=== PATIENT | female | born 1950 | race Hispanic/Latino ===

== ENCOUNTER 2017-03-22 20:57 | Emergency (ER) | payer BC, MEDICARE ==
[2017-03-22 21:05] VITALS: BMI 18.8
[2017-03-22 21:17] VITALS: RESP 18
[2017-03-22] MEDS ORDERED: Sodium Chloride 0.9% 1,000 ML IV STA (21:26)
--- NOTE | 2017-03-22 21:51 | ED PDOC ---
Arrival/HPI - General Chief Complaint: Altered Mental Status Time Seen by Provider: 03/22/17 21:08 Historian: Patient, Spouse - History of Present Illness Narrative History of Present Illness (Text): 03/22/17 21:26 A 66 year old female, whose past medical history includes multiple myeloma, brought into the emergency department by EMS accompanied by for witnessed seizure. reports he woke up approximately at 20:00 and found patient unresponsive with her arms clenched tightly. He reports the seizure could have occurred in the span of 1 hour. Patient has a history of one prior seizure 1 year ago. also notes non-bilious non-bloody vomiting and a loss of appetite fo r 4 days, which began after chemotherapy. Patient denies any trauma, tongue biting, urinary incontinence, abdominal pain, chest pain, shortness of breath or any other complaints. PMD: Dr. Otf Littlejohn Toe Trimmer: Dr. Kinsey Time/Duration: Prior to Arrival Context: Home Past Medical History - Provider Review Nursing Documentation Reviewed: Yes - Cardiac Hx Cardiac Disorders: No - Pulmonary Hx Respiratory Disorders: Yes Hx Sleep Apnea: Yes - Neurological Hx Neurological Disorder: Yes Hx Dizziness: Yes Hx Seizures: Yes - HEENT Hx HEENT Disorder: No - Renal Hx Renal Disorder: No - Endocrine/Metabolic Hx Endocrine Disorders: No - Hematological/Oncological Hx Blood Disorders: Yes Hx Cancer: Yes (Multiple myeloma) - Integumentary Hx Dermatological Disorder: No - Musculoskeletal/Rheumatological Hx Musculoskeletal Disorders: Yes Hx Falls: Yes - Gastrointestinal Hx Gastrointestinal Disorders: Yes Hx Gastroesophageal Reflux: Yes - Genitourinary/Gynecological Hx Genitourinary Disorders: No - Psychiatric Hx Psychophysiologic Disorder: Yes Hx Anxiety: Yes Hx Substance Use: No - Anesthesia Hx Anesthesia: No Family/Social History - Physician Review Nursing Documentation Reviewed: Yes Family/Social History: No Known Family HX Smoking Status: Never Smoked Hx Alcohol Use: Yes Hx Substance Use: No Allergies/Home Meds Allergies/Adverse Reactions: Allergies No Known Allergies Allergy (Verified 01/15/16 23:13) Home Medications: Home Meds Medication Instructions Recorded Confirmed Unobtainable 03/22/17 03/22/17 Review of Systems - Physician Review All systems were reviewed & negative as marked: Yes - Review of Systems ENT: Other (tongue biting) Respiratory: absent: SOB Cardiovascular: absent: Chest Pain Gastrointestinal: absent: Abdominal Pain Genitourinary Female: absent: Other (Urinary incontinence) Neurological: Seizure Physical Exam Vital Signs Reviewed: Yes Vital Signs Pulse Resp BP Pulse Ox 03/22/17 21:16 119 H 18 153/96 H 95 Blood Pressure: Hypertensive Pulse: Tachycardic Respiratory Rate: Normal Appearance: Positive for: Well-Appearing, Non-Toxic, Comfortable Pain Distress: None Mental Status: Positive for: Alert and Oriented X 3 Finger Stick Blood Glucose: 129 - Systems Exam Head: Present: Atraumatic, Normocephalic Pupils: Present: PERRL Extroacular Muscles: Present: EOMI Conjunctiva: Present: Normal Mouth: Present: Moist Mucous Membranes, Other (bite to lower lip, no acitve bleeding) Neck: Present: Normal Range of Motion Respiratory/Chest: Present: Clear to Auscultation, Good Air Exchange. No: Respiratory Distress, Accessory Muscle Use Cardiovascular: Present: Regular Rate and Rhythm, Normal S1, S2. No: Murmurs Abdomen: Present: Normal Bowel Sounds. No: Tenderness, Distention, Peritoneal Signs Back: Present: Normal Inspection Upper Extremity: Present: Normal Inspection. No: Cyanosis, Edema Lower Extremity: Present: Normal Inspection. No: Edema Neurological: Present: GCS=15, CN II-XII Intact, Speech Normal, Motor Func Grossly Intact, Normal Sensory Function, Normal Cerebellar Funct, Gait Normal Skin: Present: Warm, Dry, Normal Color. No: Rashes Psychiatric: Present: Alert, Oriented x 3, Normal Insight, Normal Concentration Medical Decision Making ED Course and Treatment: 03/22/17 21:26 Impression: A 66 year old female brought in after seizure Differential Diagnosis included but are not limited to: Seizure secondary to Electrolyte abnormality vs. Intracranial pathology Plan: -- Head CT -- EKG -- Labs -- Urinalysis -- IV fluids -- Reassess and disposition Progress Notes: EKG shows sinus tachycardia at [address]-segment elevations, no change from prior on 12/2015. Interpreted by me. 03/22/17 23:[address] Alexis to f/u CT Head, UA, Temperature, reevaluate and disposition. - Lab Interpretations Lab Results: 03/22/17 21:40 03/22/17 21:40 Lab Results 03/22/17 21:40: Sodium 138, Potassium 4.2, Chloride 105, Carbon Dioxide 20 L, Anion Gap 17, BUN 14, Creatinine 1.2, Est GFR ( Amer) 54, Est GFR (Non- Af Amer) 45, Random Glucose 160 H, Calcium 10.4, Total Bilirubin 0.7, AST 22, ALT 16, Alkaline Phosphatase 89, Total Creatine Kinase 75, Total Protein 8.8 H, Albumin 4.6, Globulin 4.2, Albumin/Globulin Ratio 1.1, Lipase 113 03/22/17 21:40: WBC 9.0, RBC 4.09, Hgb 13.0, Hct 39.9, MCV 97.6, MCH 31.8, MCHC 32.6, RDW 14.0, Plt Count 241, MPV 10.1, Gran % 79.1 H, Lymph % (Auto) 13.9 L, Guthrie % (Auto) 6.9 H, Eos % (Auto) 0.1 L, Baso % (Auto) 0.0, Gran # 7.08 H, Lymph # 1.2, Guthrie # 0.6, Eos # 0.0, Baso # 0.00 03/22/17 21:05: POC Glucose (mg/dL) 129 H I have reviewed the lab results: Yes - RAD Interpretation Radiology Orders: 03/22/17 21:25 HEAD W/O CONTRAST [CT] Stat - Medication Orders Current Medication Orders: Discontinued Medications Sodium Chloride (Sodium Chloride 0.9%) 1,000 mls @ 999 mls/hr IV .Q1H1M STA Stop: 03/22/17 22:26 Last Admin: 03/22/17 21:44 Dose: 999 mls/hr eMAR Start Stop Document 03/22/17 21:44 AD (Rec: 03/22/17 21:45 AD [id number]) Intravenous Solution Start Date 03/22/17 Start Time 21:45 - Scribe Statement The provider has reviewed the documentation as recorded by the Tongibnaomi Aleman Provider Scribe Attestation: All medical record entries made by the Scribe were at my direction and personally dictated by me. I have reviewed the chart and agree that the record accurately reflects my personal performance of the history, physical exam, medical decision making, and the department course for this patient. I have also personally directed, reviewed, and agree with the discharge instructions and disposition. Disposition/Present on Arrival - Present on Arrival Any Indicators Present on Arrival: No History of DVT/PE: No History of Uncontrolled Diabetes: No Urinary Catheter: No History of Decub. Ulcer: No History Surgical Site Infection Following: None - Disposition Have Diagnosis and Disposition been Completed?: No Diagnosis: Seizure, Vomiting Disposition Time: 23:08 Condition: FAIR Forms: [facility] (Kiswahili)
[2017-03-22 22:05] LABS: EOS % 0.1 % (1.5-5.0); GRAN # 7.08 (1.4-6.5); GRAN % 79.1 % (50.0-68.0); LYMPH # 1.2 (1.2-3.4); LYMPH % 13.9 % (22.0-35.0); MEAN CELL VOLUME 97.6 fl (80.0-105.0); MEAN CORPUSCULAR HEMOGLOBIN 31.8 pg (25.0-35.0); MEAN CORPUSCULAR HGB CONC 32.6 g/dl (31.0-37.0); MEAN PLATELET VOLUME 10.1 fl (7.0-11.0); MONO # 0.6 (0.1-0.6); MONO % 6.9 % (1.0-6.0); RBC 4.09 10^6/uL (3.5-6.1)
[2017-03-22 22:13] LABS: ALBUMIN 4.6 g/dL (3.0-4.8); CALCIUM 10.4 mg/dL (8.4-10.5)
[2017-03-22 22:17] LABS: ALB/GLOB RATIO 1.1 (1.1-1.8)
[2017-03-22 23:27] VITALS: TEMP 98.1
--- NOTE | 2017-03-23 00:04 | CT ---
EXAM: CT Head Without Intravenous Contrast EXAM DATE/TIME: 03/22/2017 9:25 PM CLINICAL HISTORY: The patient age is 66 years old and is female; Signs and symptoms; Other: Seizure; Additional info: Seizure; Last was a year ago Facility exam id and description: Ct heads head w/o contrast TECHNIQUE: Axial computed tomography images of the head/brain without intravenous contrast. All CT scans at this facility use one or more dose reduction techniques, viz.: automated exposure control; ma/kV adjustment per patient size (including targeted exams where dose is matched to indication; i.e. head); or iterative reconstruction technique. Coronal and sagittal reformatted images were created and reviewed. COMPARISON: No relevant prior studies available. FINDINGS: Brain: There are periventricular foci of hypodensity, likely representing small vessel ischemic disease in a patient this age. The acuity of the white matter disease is indeterminate. The white-ayoub differentiation is preserved demonstrating no acute territorial type infarct. There is mild to moderate prominence of the ventricles and sulci, compatible with atrophy. No acute intracranial hemorrhage is seen. Midline shift: There is no midline shift. Ventricles: See above. Bones/joints: The calvarium demonstrates no evidence for a depressed fracture. Soft tissues: No acute abnormality. Vasculature: There is atherosclerotic calcification of the cavernous internal carotid arteries and distal vertebral arteries. Sinuses: There is near complete opacification of the left maxillary sinus. Mastoid air cells: No mastoid effusion. IMPRESSION: 1. No acute intracranial hemorrhage or acute territorial type infarct. 2. There are periventricular foci of hypodensity, likely representing small vessel ischemic disease in a patient this age. 3. Mild to moderate atrophy. 4. Paranasal sinus disease is noted above.
--- NOTE | 2017-03-23 00:39 | ED PDOC ---
Physical Exam - Physical Exam Narrative Physical Exam (Text): 03/23/17 00:38 66 year old female, endorsed to me by Dr. Gu, presented to the Emergency department s/p epileptic episode. Pending head CT. Upon re-evaluation, patient appears to be stable and denies any new complaints. Vital Signs Reviewed: Yes Vital Signs Temp Pulse Resp BP Pulse Ox 03/22/17 21:16 98.1 F 119 H 18 153/96 H 95 Temperature: Afebrile Blood Pressure: Hypertensive Pulse: Tachycardic Respiratory Rate: Normal Appearance: Positive for: Well-Appearing, Non-Toxic, Comfortable Pain Distress: None Mental Status: Positive for: Alert and Oriented X 3 Finger Stick Blood Glucose: 129 - Systems Exam Head: Present: Atraumatic, Normocephalic Pupils: Present: PERRL Extroacular Muscles: Present: EOMI Conjunctiva: Present: Normal Mouth: Present: Moist Mucous Membranes Neck: Present: Normal Range of Motion Respiratory/Chest: Present: Clear to Auscultation, Good Air Exchange. No: Respiratory Distress, Accessory Muscle Use Cardiovascular: Present: Regular Rate and Rhythm, Normal S1, S2. No: Murmurs Abdomen: Present: Normal Bowel Sounds. No: Tenderness, Distention, Peritoneal Signs Back: Present: Normal Inspection Upper Extremity: Present: Normal Inspection. No: Cyanosis, Edema Lower Extremity: Present: Normal Inspection. No: Edema Neurological: Present: GCS=15, CN II-XII Intact, Speech Normal Skin: Present: Warm, Dry, Normal Color. No: Rashes Psychiatric: Present: Alert, Oriented x 3, Normal Insight, Normal Concentration Medical Decision Making ED Course and Treatment: 03/23/17 00:40 Impression: 66 year old female presents to the Emergency department s/p seizure today. Plan: -- CT of Head -- Reassess and disposition Progress Notes: 03/23/17 00:40 CT of head reviewed by radiologist, shows: 1. No acute intracranial hemorrhage or acute territorial type infarct. 2. There are periventricular foci of hypodensity, likely representing small vessel ischemic disease in a patient this age. 3. Mild to moderate atrophy. 4. Paranasal sinus disease is noted above CT head overall negative. Discussed case with Dr. Littlejohn, who is aware and agrees with plan to have the patient follow-up with him. 03/23/17 00:45 Upon re-evaluation, patient appears stable and is in no acute distress. Patient denies any new complaints. Patient is agreeable with plan to follow-up with her PMD: Dr. Littlejohn. - Lab Interpretations Lab Results: 03/22/17 21:40 03/22/17 21:40 Lab Results 03/22/17 21:40: Sodium 138, Potassium 4.2, Chloride 105, Carbon Dioxide 20 L, Anion Gap 17, BUN 14, Creatinine 1.2, Est GFR ( Amer) 54, Est GFR (Non- Af Amer) 45, Random Glucose 160 H, Calcium 10.4, Total Bilirubin 0.7, AST 22, ALT 16, Alkaline Phosphatase 89, Total Creatine Kinase 75, Total Protein 8.8 H, Albumin 4.6, Globulin 4.2, Albumin/Globulin Ratio 1.1, Lipase 113 03/22/17 21:40: WBC 9.0, RBC 4.09, Hgb 13.0, Hct 39.9, MCV 97.6, MCH 31.8, MCHC 32.6, RDW 14.0, Plt Count 241, MPV 10.1, Gran % 79.1 H, Lymph % (Auto) 13.9 L, Daggett % (Auto) 6.9 H, Eos % (Auto) 0.1 L, Baso % (Auto) 0.0, Gran # 7.08 H, Lymph # 1.2, Daggett # 0.6, Eos # 0.0, Baso # 0.00 03/22/17 21:05: POC Glucose (mg/dL) 129 H - RAD Interpretation Radiology Orders: 03/22/17 21:25 HEAD W/O CONTRAST [CT] Stat - Medication Orders Current Medication Orders: Discontinued Medications Sodium Chloride (Sodium Chloride 0.9%) 1,000 mls @ 999 mls/hr IV .Q1H1M STA Stop: 03/22/17 22:26 Last Admin: 03/22/17 21:44 Dose: 999 mls/hr eMAR Start Stop Document 03/22/17 21:44 AD (Rec: 03/22/17 21:45 AD [id number]) Intravenous Solution Start Date 03/22/17 Start Time 21:45 - Scribe Statement The provider has reviewed the documentation as recorded by the Scribnaomi Mane. All medical record entries made by the Scribe were at my direction and personally dictated by me. I have reviewed the chart and agree that the record accurately reflects my personal performance of the history, physical exam, medical decision making, and the department course for this patient. I have also personally directed, reviewed, and agree with the discharge instructions and disposition. Disposition/Present on Arrival - Present on Arrival Any Indicators Present on Arrival: No History of DVT/PE: No History of Uncontrolled Diabetes: No Urinary Catheter: No History of Decub. Ulcer: No History Surgical Site Infection Following: None - Disposition Have Diagnosis and Disposition been Completed?: Yes Diagnosis: Seizure, Vomiting Disposition: HOME/ ROUTINE Disposition Time: 00:30 Condition: STABLE Discharge Instructions (ExitCare): Epilepsy (ED) Additional Instructions: Thank you for letting us take care of you today. The emergency medical care you received today was directed at your acute symptoms. If you were prescribed any medication, please fill it and take as directed. It may take several days for your symptoms to resolve. Return to the Emergency Department if your symptoms worsen, do not improve, or if you have any other problems. Please contact your doctor or call one of the physicians/clinics you have been referred to that are listed on the Patient Visit Information form that is included in your discharge packet. Bring any paperwork you were given at discharge with you along with any medications you are taking to your follow up visit. Our treatment cannot replace ongoing medical care by a primary care provider (PCP) outside of the emergency department. Thank you for allowing the [facility] team to be part of your care today. Follow up with Dr. Littlejohn in the morning for re-evaluation and further management. Referrals: Otf Littlejohn MD [Staff Provider] - Follow up with primary Forms: [facility] ([place]ivehi)
[2017-03-23 01:37] VITALS: BP 149/89; PULSE 99; O2SAT 100
--- NOTE | 2017-03-24 16:13 | CARD ---
APPROVED REPORT EKG Measurement Heart [id number] <Conclusion> Sinus tachycardia Possible Anterior infarct, age undetermined Abnormal ECG
== END 2017-03-23 01:15 | disposition home or self-care (01) ==
LOC: ED 20:57
DX: R56.9 Unspecified convulsions (principal); R11.10 Vomiting, unspecified; Z85.79 Personal history of other malignant neoplasms of lymphoid, hematopoietic and related tissues
CPT/HCPCS: 70450; 80053; 82550; 82948; 83690; 85025; 93005; 99285; J7040

== ENCOUNTER 2017-05-11 00:50 | Emergency (ER) | payer MEDICARE, BC ==
[2017-05-11 00:50] VITALS: BMI 18.8
[2017-05-11 01:22] LABS: BASO # 0.01 K/mm3 (0.0-2.0); BASO % 0.1 % (0.0-3.0); EOS # 0.1 (0.0-0.7); EOS % 0.6 % (1.5-5.0); GRAN # 7.23 (1.4-6.5); GRAN % 71.1 % (50.0-68.0); HEMOGLOBIN 12.2 g/dL (12.0-16.0); LYMPH % 19.3 % (22.0-35.0); MEAN CELL VOLUME 98.4 fl (80.0-105.0); MEAN CORPUSCULAR HEMOGLOBIN 32.6 pg (25.0-35.0); MEAN CORPUSCULAR HGB CONC 33.2 g/dl (31.0-37.0); MEAN PLATELET VOLUME 10.3 fl (7.0-11.0); MONO # 0.9 (0.1-0.6); MONO % 8.9 % (1.0-6.0); RBC 3.74 10^6/uL (3.5-6.1); RED CELL DISTRIBUTION WIDTH 13.8 % (11.5-14.5); WHITE BLOOD COUNT 10.2 10^3/ul (4.5-11.0)
[2017-05-11 01:32] LABS: ALB/GLOB RATIO 1.1 (1.1-1.8); ALBUMIN 4.4 g/dL (3.0-4.8); ALT/SGPT 8 U/L (7-56); BLOOD UREA NITROGEN 13 mg/dL (7-21); CALCIUM 9.5 mg/dL (8.4-10.5); GFR AFRICAN-AMERICAN 54; GFR NON-AFRICAN AMERICAN 45
[2017-05-11 01:43] LABS: TROPONIN I < 0.01 ng/mL
[2017-05-11] MEDS ORDERED: Sodium Chloride 0.9% 1,000 ML IV STA (01:47)
[2017-05-11 01:50] LABS: AST/SGOT 30 U/L (14-36)
[2017-05-11 02:06] LABS: INR 1.03 (0.93-1.08); PARTIAL THROMBOPLASTIN TIME 24.9 Seconds (25.1-36.5); PROTHROMBIN TIME 11.7 SECONDS (9.4-12.5)
--- NOTE | 2017-05-11 02:08 | ED PDOC ---
Arrival/HPI - General Chief Complaint: Seizure Time Seen by Provider: 05/11/17 01:16 Historian: Patient, Spouse - History of Present Illness Narrative History of Present Illness (Text): 05/11/17 02:04 A 66 year old female, whose past medical history includes multiple myeloma, presents to the emergency department s/p a seizure episode this evening. The patient states that she is currently not on any seizure medication nor has she followed up with a neurologist. The patient states that the seizure lasted about 5 minutes. The patient notes that he bottom lip is swollen, stating that she may have bitten her lip. The also noted that patient has been vomiting experiencing nausea and food intolerance after chemotherapy treatments. The patient denies fevers, chills, headache, dizziness, chest pain, shortness of breath, dyspnea on exertion, cough, abdominal pain, diarrhea, back pain, neck pain, urinary/bowel changes/ intolerance, or any other complaint. PMD: Dr. Littlejohn Oncologist: Dr. Kinsey Time/Duration: Other (This evening) Symptom Onset: Sudden Symptom Course: Resolved Activities at Onset: Rest, Light Context: Home Past Medical History - Provider Review Nursing Documentation Reviewed: Yes - Infectious Disease Hx of Infectious Diseases: None - Cardiac Hx Cardiac Disorders: No - Pulmonary Hx Respiratory Disorders: Yes Hx Sleep Apnea: Yes - Neurological Hx Neurological Disorder: Yes Hx Dizziness: Yes Hx Seizures: Yes - HEENT Hx HEENT Disorder: No - Renal Hx Renal Disorder: No - Endocrine/Metabolic Hx Endocrine Disorders: No - Hematological/Oncological Hx Blood Disorders: Yes Hx Cancer: Yes (Multiple myeloma) - Integumentary Hx Dermatological Disorder: No - Musculoskeletal/Rheumatological Hx Musculoskeletal Disorders: Yes Hx Falls: Yes - Gastrointestinal Hx Gastrointestinal Disorders: Yes Hx Gastroesophageal Reflux: Yes - Genitourinary/Gynecological Hx Genitourinary Disorders: No - Psychiatric Hx Psychophysiologic Disorder: Yes Hx Anxiety: Yes Hx Substance Use: No - Anesthesia Hx Anesthesia: No Family/Social History - Physician Review Nursing Documentation Reviewed: Yes Family/Social History: No Known Family HX Smoking Status: Never Smoked Hx Alcohol Use: Yes Hx Substance Use: No Allergies/Home Meds Allergies/Adverse Reactions: Allergies No Known Allergies Allergy (Verified 01/15/16 23:13) Review of Systems - Physician Review All systems were reviewed & negative as marked: Yes - Review of Systems Constitutional: absent: Fevers, Night Sweats Respiratory: absent: SOB, Cough Cardiovascular: absent: Chest Pain, MUNIZ Gastrointestinal: absent: Abdominal Pain, Stool Changes Genitourinary Female: absent: Urine Output Changes Musculoskeletal: absent: Back Pain, Neck Pain Neurological: absent: Headache, Dizziness Physical Exam Vital Signs Reviewed: Yes Vital Signs Pulse Resp BP Pulse Ox 05/11/17 05:45 82 18 127/77 100 05/11/17 04:00 73 18 125/84 100 05/11/17 02:28 85 16 128/86 95 05/11/17 01:06 120 H 18 153/109 H 97 Blood Pressure: Hypertensive Pulse: Tachycardic Respiratory Rate: Normal Appearance: Positive for: Well-Appearing, Non-Toxic, Comfortable Pain Distress: None Mental Status: Positive for: Alert and Oriented X 3 - Systems Exam Head: Present: Atraumatic, Normocephalic Pupils: Present: PERRL Extroacular Muscles: Present: EOMI Conjunctiva: Present: Normal Mouth: Present: Moist Mucous Membranes. No: Normal Lips (Lip Biting s/p seizure.) Neck: Present: Normal Range of Motion Respiratory/Chest: Present: Clear to Auscultation, Good Air Exchange. No: Respiratory Distress, Accessory Muscle Use Cardiovascular: Present: Regular Rate and Rhythm, Normal S1, S2. No: Murmurs Abdomen: Present: Normal Bowel Sounds. No: Tenderness, Distention, Peritoneal Signs Back: Present: Normal Inspection Upper Extremity: Present: Normal Inspection. No: Cyanosis, Edema Lower Extremity: Present: Normal Inspection. No: Edema Neurological: Present: GCS=15, CN II-XII Intact, Speech Normal Skin: Present: Warm, Dry, Normal Color. No: Rashes Psychiatric: Present: Alert, Oriented x 3, Normal Insight, Normal Concentration Medical Decision Making ED Course and Treatment: 05/11/17 02:09 Impression: A 66 year old female presents to the emergency department s/p a seizure episode this evening. Plan: -- Urinalysis -- Urine Culture -- Ativan, Zofran, and IV Fluids -- Reassess and disposition Prior Visits: Notes and results from previous visits were reviewed. Patient was last seen in the emergency department on 03/22/2017. The patient was seen and treated s/p a seizure episode. Patient was discharged home. Progress Notes: CT Head Without Intravenous Contrast Dictated and Authenticated by: Julio Alcala MD 05/11/2017 5:25 AM Eastern Time ([place] & [place]) IMPRESSION: 1. Nonspecific white matter changes. Acute infarction may be CT occult within first 24 hours. If a focal deficit persists, consider followup CT or MRI for further evaluation. 2. Sinus disease. 3. Incidental/non-acute findings are described above. - Lab Interpretations Lab Results: 05/11/17 01:00 05/11/17 01:00 Lab Results 05/11/17 01:45: PT 11.7, INR 1.03, APTT 24.9 L 05/11/17 01:00: Sodium 137, Potassium 3.6, Chloride 99, Carbon Dioxide 16 L, Anion Gap 26 H, BUN 13, Creatinine 1.2, Est GFR ( Amer) 54, Est GFR (Non- Af Amer) 45, Random Glucose 146 H, Calcium 9.5, Total Bilirubin 0.7, AST 30, ALT 8, Alkaline Phosphatase 60, Lactate Dehydrogenase 680, Total Creatine Kinase 111, Troponin I < 0.01, Total Protein 8.2, Albumin 4.4, Globulin 3.8, Albumin/Globulin Ratio 1.1 05/11/17 01:00: WBC 10.2, RBC 3.74, Hgb 12.2, Hct 36.8, MCV 98.4, MCH 32.6, MCHC 33.2, RDW 13.8, Plt Count 216, MPV 10.3, Gran % 71.1 H, Lymph % (Auto) 19.3 L, [place]linger % (Auto) 8.9 H, Eos % (Auto) 0.6 L, Baso % (Auto) 0.1, Gran # 7.23 H, Lymph # (Auto) 2.0, Bollinger # (Auto) 0.9 H, Eos # (Auto) 0.1, Baso # (Auto) 0.01 I have reviewed the lab results: Yes - RAD Interpretation Radiology Orders: 05/11/17 03:16 HEAD W/O CONTRAST [CT] Stat - Medication Orders Current Medication Orders: Discontinued Medications Sodium Chloride (Sodium Chloride 0.9%) 1,000 mls @ 999 mls/hr IV .Q1H1M STA Stop: 05/11/17 02:47 Last Admin: 05/11/17 01:55 Dose: 999 mls/hr eMAR Start Stop Document 05/11/17 01:55 JOL (Rec: 05/11/17 02:28 JOL [id number]) Intravenous Solution Start Date 05/11/17 Start Time 01:55 End Date 05/11/17 End time 02:55 Total Infusion Time 60 Lorazepam (Ativan) 1 mg IVP ONCE ONE PRN Reason: Protocol Stop: 05/11/17 01:48 Last Admin: 05/11/17 02:27 Dose: 1 mg IVP Administration Document 05/11/17 02:27 JOL (Rec: 05/11/17 02:27 JOL [id number]) Charges for Administration # of IVP Administrations 1 Ondansetron HCl (Zofran Inj) 8 mg IVP STAT STA Stop: 05/11/17 01:48 Last Admin: 05/11/17 02:28 Dose: 8 mg IVP Administration Document 05/11/17 02:28 JOL (Rec: 05/11/17 02:28 JOL [id number]) Charges for Administration # of IVP Administrations 1 - PA / POWERHOUSE MECHANIC APPRENTICE / Resident Statement MD/DO has reviewed & agrees with the documentation as recorded. - Scribe Statement The provider has reviewed the documentation as recorded by the Tongibe Kiki Villanueva Provider Scribe Attestation: All medical record entries made by the Scribe were at my direction and personally dictated by me. I have reviewed the chart and agree that the record accurately reflects my personal performance of the history, physical exam, medical decision making, and the department course for this patient. I have also personally directed, reviewed, and agree with the discharge instructions and disposition. Disposition/Present on Arrival - Present on Arrival Any Indicators Present on Arrival: No History of DVT/PE: No History of Uncontrolled Diabetes: No Urinary Catheter: No History of Decub. Ulcer: No History Surgical Site Infection Following: None - Disposition Have Diagnosis and Disposition been Completed?: Yes Diagnosis: Recurrent seizures, Dehydration, Multiple myeloma Disposition: HOME/ ROUTINE Disposition Time: 05:43 Patient Plan: Discharge Condition: GOOD Discharge Instructions (ExitCare): Dehydration, Adult (DC) Additional Instructions: Mrs Mahan- Use the Zofran ODT for the Nausea/Vomiting - it dissolves on the tongue. Bradly- Dr. Leander Almanzar Prescriptions: Ondansetron ODT [Zofran ODT] 8 mg PO TID #30 odt Referrals: Otf Littlejohn MD [Primary Care Provider] - Follow up with primary Forms: [facility] (Occ[place])
--- NOTE | 2017-05-11 05:25 | CT ---
EXAM: CT Head Without Intravenous Contrast CLINICAL HISTORY: 66 years old, female; Signs and symptoms; Syncope and collapse; Additional info: Seizure TECHNIQUE: Axial computed tomography images of the head/brain without intravenous contrast. All CT scans at this facility use one or more dose reduction techniques, viz.: automated exposure control; ma/kV adjustment per patient size (including targeted exams where dose is matched to indication; i.e. head); or iterative reconstruction technique. Coronal and sagittal reformatted images were created and reviewed. COMPARISON: CT - HEAD W/O CONTRAST 2017-03-22 23:13 FINDINGS: Brain: Mild atrophy. No intracranial hemorrhage. No mass. Few scattered foci of decreased attenuation within periventricular/subcortical white matter. No definite edema. Ventricles: No hydrocephalus. Bones/joints: No acute fracture. Stable appearance of calvarium. Soft tissues: Unremarkable. Vasculature: Mild atherosclerotic disease of intracranial arteries. Sinuses: Near complete opacification of LEFT maxillary sinus. Mastoid air cells: No mastoid effusion. Orbits: Unremarkable as visualized. IMPRESSION: 1. Nonspecific white matter changes. Acute infarction may be CT occult within first 24 hours. If a focal deficit persists, consider followup CT or MRI for further evaluation. 2. Sinus disease. 3. Incidental/non-acute findings are described above.
[2017-05-11 07:09] VITALS: BP 127/77; PULSE 82; RESP 18; O2SAT 100
== END 2017-05-11 05:50 | disposition home or self-care (01) ==
LOC: ED 00:50
DX: G40.909 Epilepsy, unspecified, not intractable, without status epilepticus (principal); E86.0 Dehydration; C90.00 Multiple myeloma not having achieved remission
CPT/HCPCS: 70450; 80053; 82550; 83615; 84484; 85025; 85610; 85730; 96361; 96374; 96375; 99285; J2060; J2405; J7040

== ENCOUNTER 2017-10-23 11:37 | Day surgery (SDC) | payer MEDICARE, BC ==
[2017-10-18 12:07] VITALS: BMI 24.0
[2017-10-23 12:44] LABS: BASO # 0.05 K/mm3 (0.0-2.0); BASO % 0.9 % (0.0-3.0); EOS # 0.2 (0.0-0.7); EOS % 3.6 % (1.5-5.0); GRAN # 3.39 (1.4-6.5); GRAN % 58.6 % (50.0-68.0); HEMOGLOBIN 10.9 g/dL (12.0-16.0); LYMPH # 1.5 (1.2-3.4); LYMPH % 25.2 % (22.0-35.0); MEAN CELL VOLUME 96.3 fl (80.0-105.0); MEAN CORPUSCULAR HEMOGLOBIN 31.3 pg (25.0-35.0); MEAN CORPUSCULAR HGB CONC 32.5 g/dl (31.0-37.0); MEAN PLATELET VOLUME 10.1 fl (7.0-11.0); MONO # 0.7 (0.1-0.6); MONO % 11.7 % (1.0-6.0); RBC 3.48 10^6/uL (3.5-6.1); RED CELL DISTRIBUTION WIDTH 13.2 % (11.5-14.5); WHITE BLOOD COUNT 5.8 10^3/ul (4.5-11.0)
[2017-10-23 13:18] LABS: INR 0.94; PARTIAL THROMBOPLASTIN TIME 22.6 Seconds (25.1-36.5); PROTHROMBIN TIME 10.8 SECONDS (9.4-12.5)
[2017-10-23 13:40] LABS: CALCIUM 8.8 mg/dL (8.4-10.5)
[2017-10-23] MEDS ORDERED: Midazolam 2 MG/2 ML VIAL ONE (14:42)
[2017-10-23] MEDS ORDERED: Oxycodone/Acetaminophen 5/325 mg Tab PO PRN (15:21)
[2017-10-23] MEDS ORDERED: Sodium Chloride 0.45% 1,000 ML IV SCH (15:30)
[2017-10-23 16:20] VITALS: PULSE 79; RESP 20; TEMP 98.6; O2SAT 98
[2017-10-23 17:41] VITALS: BP 137/70
--- NOTE | 2017-10-23 18:39 | VASCULAR ---
PROCEDURE: Ultrasound and fluoroscopic right internal jugular venous access port. CLINICAL HISTORY: Multiple myeloma.Venous port for chemotherapy. PHYSICIAN(S): Karan Duncan M.D. TECHNIQUE: The relative risks and indications of the procedure were explained to the patient and consent obtained. The patient was placed supine on the arteriogram table and the right neck and chest prepped and draped in the usual sterile fashion. Conscious sedation monitoring was provided throughout the procedure by a nurse. Antibiotics were given prior to the procedure. Under direct ultrasound guidance, the internal jug vein was punctured with a micro-puncture set. A 0.035 angled Glidewire was advanced into the IVC. A 4 cm incision was made below the right clavicle and the pocket blunted dissected. A 8 [place] single-lumen catheter, 17 cm long, was advanced to the SVC/RA junction. The catheter was trimmed and attached to the port. The port aspirates and injects easily. The port was placed in the pocket and closed in 2 layers. The patient tolerated the procedure well. IMPRESSION: Ultrasound and fluoroscopically placed right internal jugular venous access port.
== END 2017-10-23 17:10 | disposition home or self-care (01) ==
LOC: SDS 11:37
PROVIDERS: ATTEND Radiology Vascular & Interventional Radiology
DX: C90.00 Multiple myeloma not having achieved remission (principal); I10 Essential (primary) hypertension
CPT/HCPCS: 36415; 36561; 76937; 77001; 80048; 85025; 85610; 85730; 99152; 99153; C1769; C1788; J0690; J1644; J2250; J2405; J3010; J7030

== ENCOUNTER 2018-04-12 02:05 | Emergency (ER) | payer MEDICARE, BC ==
[2018-04-12 02:05] VITALS: BMI 24.0
[2018-04-12] MEDS ORDERED: Sodium Chloride 0.9% 500 ML IV STA (02:18)
--- NOTE | 2018-04-12 02:28 | ED PDOC ---
Arrival/HPI - General Chief Complaint: Altered Mental Status Time Seen by Provider: 04/12/18 02:06 Historian: Patient - History of Present Illness Narrative History of Present Illness (Text): 04/12/18 02:23 67 year old female, whose past medical history includes multiple myeloma, brought into the emergency department by EMS accompanied by for witnessed seizure. reports he woke up and found patient unresponsive with her arms clenched tightly. states patient has had a history of seizures since her diagnosis, stating they usually come on when "she is dehydrated." states patient did not receive her scheduled chemotherapy treatment today as she was not feeling well. Patient denies any fevers, chills, headache, dizziness, chest pain, shortness of breath, cough, abdominal pain, nausea, vomiting, diarrhea, back pain, neck pain, or any other complaint. upon emergency department arrival pt feels well denies complaints tates "she bit her lip" PMD: Dr. Otf Littlejohn Ingot Weigher: Dr. Kinsey 04/12/18 05:33 Time/Duration: Prior to Arrival Symptom Onset: Sudden Symptom Course: Unchanged Activities at Onset: Light Context: Home Past Medical History - Provider Review Nursing Documentation Reviewed: Yes - Infectious Disease Hx of Infectious Diseases: None - Cardiac Hx Pacemaker: No - Pulmonary Hx Respiratory Disorders: Yes Hx Sleep Apnea: Yes - Neurological Hx Paralysis: No - HEENT Hx HEENT Disorder: No - Renal Hx Renal Disorder: No - Endocrine/Metabolic Hx Endocrine Disorders: No - Hematological/Oncological Hx Blood Transfusions: Yes (2013) Hx Blood Transfusion Reaction: No - Integumentary Hx Dermatological Disorder: No - Musculoskeletal/Rheumatological Hx Musculoskeletal Disorders: No - Gastrointestinal Hx Gastrointestinal Disorders: Yes Hx Gastroesophageal Reflux: Yes - Genitourinary/Gynecological Hx Genitourinary Disorders: No - Psychiatric Hx Emotional Abuse: No Hx Physical Abuse: No Hx Substance Use: No - Anesthesia Hx Anesthesia Reactions: No Hx Malignant Hyperthermia: No - Suicidal Assessment Feels Threatened In Home Enviroment: No Family/Social History - Physician Review Nursing Documentation Reviewed: Yes Family/Social History: No Known Family HX Smoking Status: Never Smoked Hx Alcohol Use: No Hx Substance Use: No Allergies/Home Meds Allergies/Adverse Reactions: Allergies No Known Allergies Allergy (Verified 01/15/16 23:13) Home Medications: Home Meds Medication Instructions Recorded Confirmed ALPRAZolam [Xanax] 1 mg PO PRN PRN 10/18/17 10/23/17 Aspirin [Ecotrin] 81 mg PO DAILY 10/18/17 10/23/17 Ondansetron ODT [Zofran ODT] 8 mg PO TID PRN 10/18/17 10/23/17 Zolpidem [Ambien] 5 mg PO HS PRN 10/18/17 10/23/17 Review of Systems - Physician Review All systems were reviewed & negative as marked: Yes - Review of Systems Constitutional: absent: Fevers, Night Sweats Respiratory: absent: SOB, Cough Cardiovascular: absent: Chest Pain Gastrointestinal: absent: Abdominal Pain, Diarrhea, Nausea, Vomiting Musculoskeletal: absent: Back Pain, Neck Pain Neurological: Seizure. absent: Headache, Dizziness Physical Exam Vital Signs Reviewed: Yes Blood Pressure: Normal Pulse: Regular Respiratory Rate: Normal Appearance: Positive for: Well-Appearing, Non-Toxic, Comfortable Pain Distress: None Mental Status: Positive for: Alert and Oriented X 3 Finger Stick Blood Glucose: 215 - Systems Exam Head: Present: Atraumatic, Normocephalic Pupils: Present: PERRL Extroacular Muscles: Present: EOMI Conjunctiva: Present: Normal Mouth: Present: Moist Mucous Membranes, Other (lower lip mild swelling) Neck: Present: Normal Range of Motion Respiratory/Chest: Present: Clear to Auscultation, Good Air Exchange. No: Respiratory Distress, Accessory Muscle Use Cardiovascular: Present: Regular Rate and Rhythm, Normal S1, S2. No: Murmurs Abdomen: No: Tenderness, Distention, Peritoneal Signs Back: Present: Normal Inspection Upper Extremity: Present: Normal Inspection. No: Cyanosis, Edema Lower Extremity: Present: Normal Inspection. No: Edema Neurological: Present: GCS=15, CN II-XII Intact, Speech Normal Skin: Present: Warm, Dry, Normal Color. No: Rashes Psychiatric: Present: Alert, Oriented x 3, Normal Insight, Normal Concentration Medical Decision Making ED Course and Treatment: 04/12/18 02:30 Impression: 67 year old female presents status post seizure Plan: -- CT Head -- EKG -- Labs -- Zofran -- Urinalysis -- Reassess and disposition Prior Visits: Notes and results from previous visits were reviewed Progress Notes: 04/12/18 02:32 EKG Reviewed by me, shows: Sinus tachycardia@ 122 bpm 04/12/18 03:17 CT scan of the head CLINICAL HISTORY: Seizure. TECHNIQUE: Multiple axial CT images were obtained through the brain without IV contrast material. COMPARISON: 05/11/2017. COMMENTS: There is normal configuration of sella turcica. There are no intra or extra- axial collections. There is no mass effect or midline shift. There is no evidence of hematoma formation. No hydrocephalus is present. The ventricles are symmetrical. No abnormal calcifications are present. There is diffuse age-appropriate cerebellar and cerebral atrophy with proportionally dilated ventricles and cortical sulci. There are bilateral periventricular and subcortical white matter hypolucencies compatible with mild chronic microvascular disease. Otherwise, no significant focal abnormalities are seen either in the posterior fossa or supratentorial compartment. IMPRESSION: 1. Age-appropriate cerebellar and cerebral atrophy. 2. Mild chronic microvascular disease. 3. No evidence of acute intracranial pathology. 04/12/18 05:33 noted numerous visits for similar neg mri 06/13, in emergency room, awake alert at baseline. ct no mass effect neuro intact. pt repeatly asking for d/c. cxr neg. refuses to provide ua. advises will follow up outpt strict return precautiosn advised will need further outpt w/u including mri r/o mets - RAD Interpretation Radiology Orders: 04/12/18 02:18 HEAD W/O CONTRAST [CT] Stat 04/12/18 02:19 CXR [CHEST PORTABLE] [RAD] Stat - Medication Orders Current Medication Orders: Sodium Chloride (Sodium Chloride 0.9%) 500 mls @ 1,000 mls/hr IV .Q30M STA Stop: 04/12/18 02:47 - Scribe Statement The provider has reviewed the documentation as recorded by the Rad S[place] Provider Scribe Attestation: All medical record entries made by the Scribe were at my direction and personally dictated by me. I have reviewed the chart and agree that the record accurately reflects my personal performance of the history, physical exam, medical decision making, and the department course for this patient. I have also personally directed, reviewed, and agree with the discharge instructions and disposition. Disposition/Present on Arrival - Present on Arrival Any Indicators Present on Arrival: No History of DVT/PE: No History of Uncontrolled Diabetes: No Urinary Catheter: No History of Decub. Ulcer: No History Surgical Site Infection Following: None - Disposition Have Diagnosis and Disposition been Completed?: Yes Diagnosis: Seizure Disposition: HOME/ ROUTINE Disposition Time: 04:00 Patient Problems: Current Active Problems Problem Status Onset Seizure Acute Condition: STABLE Discharge Instructions (ExitCare): Seizures Additional Instructions: return to emergency room with worsening see your pmd and specialist. you may ne ed further testing as an outpatient. Referrals: Garrett Ramos MD [Staff Provider] - Follow up with primary Otf Littlejohn MD [Primary Care Provider] - Follow up with primary Forms: [employer] ([place])
[2018-04-12 02:35] LABS: BASO # 0.05 K/mm3 (0.0-2.0); BASO % 0.5 % (0.0-3.0); EOS # 0.2 (0.0-0.7); EOS % 1.6 % (1.5-5.0); HEMOGLOBIN 11.1 g/dL (12.0-16.0); LYMPH # 2.4 (1.2-3.4); LYMPH % 26.3 % (22.0-35.0); MEAN CELL VOLUME 96.9 fl (80.0-105.0); MEAN CORPUSCULAR HEMOGLOBIN 31.5 pg (25.0-35.0); MEAN CORPUSCULAR HGB CONC 32.6 g/dl (31.0-37.0); MEAN PLATELET VOLUME 9.3 fl (7.0-11.0); MONO # 0.6 (0.1-0.6); RBC 3.52 10^6/uL (3.5-6.1); RED CELL DISTRIBUTION WIDTH 13.8 % (11.5-14.5); WHITE BLOOD COUNT 9.1 10^3/uL (4.5-11.0)
[2018-04-12 02:39] LABS: INR 1.07; PARTIAL THROMBOPLASTIN TIME 28.9 Seconds (26.9-38.3); PROTHROMBIN TIME 11.9 SECONDS (9.4-12.5)
[2018-04-12 02:42] LABS: ALB/GLOB RATIO 0.8 (1.1-1.8); AST/SGOT 25 U/L (14-36); BLOOD UREA NITROGEN 7 mg/dL (7-21); CALCIUM 8.9 mg/dL (8.4-10.5); GFR NON-AFRICAN AMERICAN 49
[2018-04-12 03:48] LABS: ALT/SGPT < 6 U/L (7-56)
[2018-04-12 04:02] VITALS: BP 117/62; PULSE 99; RESP 18; TEMP 98.1; O2SAT 96
--- NOTE | 2018-04-12 07:00 | CT ---
Date of service: 04/12/2018 PROCEDURE: CT HEAD WITHOUT CONTRAST. HISTORY: seizure COMPARISON: Comparison is made with the previous study dated 05/11/2017 TECHNIQUE: Axial computed tomography images were obtained through the head/brain without intravenous contrast. Radiation dose: Total exam DLP = 898.34 mGy-cm. This CT exam was performed using one or more of the following dose reduction techniques: Automated exposure control, adjustment of the mA and/or kV according to patient size, and/or use of iterative reconstruction technique. FINDINGS: HEMORRHAGE: No intracranial hemorrhage. BRAIN: No mass effect or edema. Mild volume loss and mild chronic microvascular white matter ischemic disease are again noted. VENTRICLES: Unremarkable. No hydrocephalus. CALVARIUM: Unremarkable. PARANASAL SINUSES: Mild mucosal thickening noted in the visualized left maxillary sinus. MASTOID AIR CELLS: Unremarkable as visualized. No inflammatory changes. OTHER FINDINGS: None. IMPRESSION: No evidence of acute intracranial hemorrhage intracranial collection mass effect or midline shift. Mild atrophy and chronic microvascular white matter ischemic disease. Preliminary report was submitted by [facility] Radiology contains concordant findings.
--- NOTE | 2018-04-12 09:14 | CARD ---
APPROVED REPORT Date of service: 04/12/2018 EKG Measurement Heart [id number] <Conclusion> Sinus tachycardia Nonspecific ST and T wave abnormality Abnormal ECG
--- NOTE | 2018-04-12 12:26 | RAD ---
Date of service: 04/12/2018 PROCEDURE: CHEST RADIOGRAPH, 1 VIEW HISTORY: seizure COMPARISON: None available. FINDINGS: LUNGS: Foci of airspace opacities noted at the right lower lung may represent atelectasis or pneumonia. The possibility of aspiration is also not totally excluded. PLEURA: No pneumothorax or pleural fluid seen. CARDIOVASCULAR: No aortic atherosclerotic calcification present. Normal. OSSEOUS STRUCTURES: No significant abnormalities. VISUALIZED UPPER ABDOMEN: Normal. OTHER FINDINGS: Right-sided Infusaport is seen in place. IMPRESSION: Focal opacity at the right lower lung may represent atelectasis or aspiration or pneumonia.
== END 2018-04-12 03:59 | disposition home or self-care (01) ==
LOC: ED 02:05
DX: R56.9 Unspecified convulsions (principal)
CPT/HCPCS: 70450; 71045; 80053; 82948; 83735; 85025; 85610; 85730; 93005; 96374; 99285; J2405; J7040

== ENCOUNTER 2018-04-13 03:00 | Inpatient (IN) | payer MEDICARE, BC ==
[2018-04-13] MEDS ORDERED: Sodium Chloride 0.9% 1,000 ML IV STA (03:21)
--- NOTE | 2018-04-13 03:34 | ED PDOC ---
Arrival/HPI - General Chief Complaint: Seizure Time Seen by Provider: 04/13/18 03:01 Historian: Patient - History of Present Illness Narrative History of Present Illness (Text): 04/13/18 03:31 67 year old female, whose past medical history includes multiple myeloma, brought into the emergency department by EMS accompanied by for suspected seizure. Patient is currently on chemotherapy for her multiple- myeloma. Patient was seen yesterday in the ER after normal status and negative CT scan, but patient returns for similar episodes. Patient feels nauseous, but otherwise feels well. Patient denies any fever, chills, chest pain, shortness of breath, vomiting, diarrhea, urinary symptoms, back pain, neck pain, headache, dizziness, or any other complaints. PMD: Dr. Otf Littlejohn Art Editor: Dr. Kinsey 04/13/18 06:13 Symptom Onset: Sudden Symptom Course: Improving Context: Home Past Medical History - Provider Review Nursing Documentation Reviewed: Yes - Infectious Disease Hx of Infectious Diseases: None - Cardiac Hx Pacemaker: No - Pulmonary Hx Respiratory Disorders: Yes Hx Sleep Apnea: Yes - Neurological Hx Paralysis: No Hx Seizures: Yes - HEENT Hx HEENT Disorder: No - Renal Hx Renal Disorder: No - Endocrine/Metabolic Hx Endocrine Disorders: No - Hematological/Oncological Hx Blood Transfusions: Yes (2013) Hx Blood Transfusion Reaction: No - Integumentary Hx Dermatological Disorder: No - Musculoskeletal/Rheumatological Hx Musculoskeletal Disorders: No - Gastrointestinal Hx Gastrointestinal Disorders: Yes Hx Gastroesophageal Reflux: Yes - Genitourinary/Gynecological Hx Genitourinary Disorders: No - Psychiatric Hx Emotional Abuse: No Hx Physical Abuse: No Hx Substance Use: No - Anesthesia Hx Anesthesia Reactions: No Hx Malignant Hyperthermia: No - Suicidal Assessment Feels Threatened In Home Enviroment: No Family/Social History - Physician Review Nursing Documentation Reviewed: Yes Family/Social History: No Known Family HX Smoking Status: Never Smoked Hx Alcohol Use: No Hx Substance Use: No Allergies/Home Meds Allergies/Adverse Reactions: Allergies No Known Allergies Allergy (Verified 04/13/18 03:01) Review of Systems - Physician Review All systems were reviewed & negative as marked: Yes - Review of Systems Constitutional: absent: Fevers, Other (chills) Respiratory: absent: SOB Cardiovascular: absent: Chest Pain Gastrointestinal: absent: Diarrhea, Nausea, Vomiting Genitourinary Female: absent: Dysuria, Frequency, Hematuria Musculoskeletal: absent: Back Pain, Neck Pain Neurological: Seizure Physical Exam Vital Signs Temp Pulse Resp BP Pulse Ox 04/13/18 03:07 98.5 F 99 H 22 124/64 90 L Temperature: Afebrile Blood Pressure: Normal Pulse: Tachycardic Respiratory Rate: Normal Appearance: Positive for: Well-Appearing, Non-Toxic, Comfortable Pain Distress: None Mental Status: Positive for: Alert and Oriented X 3 - Systems Exam Head: Present: Atraumatic, Normocephalic Pupils: Present: PERRL Extroacular Muscles: Present: EOMI Conjunctiva: Present: Normal Mouth: Present: Moist Mucous Membranes Neck: Present: Normal Range of Motion Respiratory/Chest: Present: Clear to Auscultation, Good Air Exchange. No: Respiratory Distress, Accessory Muscle Use Cardiovascular: Present: Regular Rate and Rhythm, Normal S1, S2. No: Murmurs Abdomen: No: Tenderness, Distention, Peritoneal Signs Back: Present: Normal Inspection Upper Extremity: Present: Normal Inspection. No: Cyanosis, Edema Lower Extremity: Present: Normal Inspection. No: Edema Neurological: Present: GCS=15, Speech Normal Skin: Present: Warm, Dry, Normal Color. No: Rashes Psychiatric: Present: Alert, Oriented x 3, Normal Insight, Normal Concentration Medical Decision Making ED Course and Treatment: 04/13/18 03:35 Impression: 67 year old female presents complaining of suspected seizure today. Patient was seen and evaluated yesterdays for similar symptom. - Labs -- EKG -- Chest X-ray -- IV Fluids, Zofran Inj -- Urinalysis -- Reassess and disposition Prior Visits: Notes and results from previous visits were reviewed. Progress Notes: EKG shows sinus tachycardia at 114 [address] with no specific st/t wave changes with no change from pervious comparison. Interpreted by me. 04/13/18 03:[address] discussed [address] PMD Dr[address] Littlejohn who recommends to observe patient until the morning. 04/13/18 04:[address] Ramos who recommends Keppra and admission for EEG. Case discussed with PMD Dr. Littlejohn who requests for hospitalist admission. 04/13/18 04:35 Case discussed with medical coordinator pesticide use and Dr. Curiel who is aware and agrees with the plan. - Lab Interpretations I have reviewed the lab results: Yes - RAD Interpretation Biological Chemist: ED Physician - EKG Interpretation Interpreted by ED Physician: Yes Type: 12 lead EKG - Medication Orders Current Medication Orders: Sodium Chloride (Sodium Chloride 0.9%) 1,000 mls @ 999 mls/hr IV .Q1H1M STA Stop: 04/13/18 04:21 Discontinued Medications Ondansetron HCl (Zofran Inj) 4 mg IVP STAT STA Stop: 04/13/18 03:22 - Scribe Statement The provider has reviewed the documentation as recorded by the Rad Bey Provider Scribe Attestation: All medical record entries made by the Rad were at my direction and personally dictated by me. I have reviewed the chart and agree that the record accurately reflects my personal performance of the history, physical exam, [facility] decision making, and the department course for this patient. I have also personally directed, reviewed, and agree with the discharge instructions and disposition. Disposition/Present on Arrival - Present on Arrival Any Indicators Present on Arrival: No History of DVT/PE: No History of Uncontrolled Diabetes: No Urinary Catheter: No History of Decub. Ulcer: No History Surgical Site Infection Following: None - Disposition Have Diagnosis and Disposition been Completed?: Yes Diagnosis: Seizure Disposition: HOSPITALIZED Disposition Time: 05:00 Condition: STABLE
[2018-04-13 03:47] LABS: BASO # 0.03 K/mm3 (0.0-2.0); BASO % 0.3 % (0.0-3.0); EOS # 0.1 (0.0-0.7); EOS % 0.6 % (1.5-5.0); HEMOGLOBIN 10.6 g/dL (12.0-16.0); LYMPH # 1.3 (1.2-3.4); MEAN CELL VOLUME 97.3 fl (80.0-105.0); MEAN CORPUSCULAR HEMOGLOBIN 31.5 pg (25.0-35.0); MEAN CORPUSCULAR HGB CONC 32.3 g/dl (31.0-37.0); MEAN PLATELET VOLUME 8.8 fl (7.0-11.0); MONO # 0.9 (0.1-0.6); MONO % 8.8 % (1.0-6.0); RBC 3.37 10^6/uL (3.5-6.1); RED CELL DISTRIBUTION WIDTH 13.8 % (11.5-14.5); WHITE BLOOD COUNT 9.6 10^3/uL (4.5-11.0)
[2018-04-13 03:58] LABS: INR 1.07; PARTIAL THROMBOPLASTIN TIME 29.1 Seconds (26.9-38.3); PROTHROMBIN TIME 11.9 SECONDS (9.4-12.5)
[2018-04-13 04:18] LABS: ALB/GLOB RATIO 0.8 (1.1-1.8); ALBUMIN 4.1 g/dL (3.0-4.8); ALT/SGPT < 6 U/L (7-56); AST/SGOT 30 U/L (14-36); BLOOD UREA NITROGEN 9 mg/dL (7-21); CALCIUM 8.8 mg/dL (8.4-10.5); GFR NON-AFRICAN AMERICAN 49; TROPONIN I < 0.01 ng/mL
[2018-04-13] MEDS ORDERED: levETIRAcetam 500mg IVPB 500 MG/100 ML BAG IVPB ONE (04:24)
--- NOTE | 2018-04-13 04:39 | CP.PCM.HP ---
<Nolberto Arora - Last Filed: 04/13/18 06:04> History of Present Illness - History of Present Illness History of Present Illness: Resident History & Physical for Hospitalist Service Patient is a 67 year old female with past medical history of seizures, multiple myeloma, HTN, GERD, anxiety presenting with chief complaint of seizures. Patient states she lost consciousness today in the afternoon and found herself in the ED after regaining consciousness. Patient was brought to the ED yesterday by her for a similar event. At that time, patient was found unresponsive with her arms clenched. Of note, patient was admitted for new onset petit-mal seizure in December 2015 and workup at that time concluded the seizure was secondary to hyponatremia. Currently patient offers no complaints and states that she feels completely fine. She denies headache, dizziness, nausea, vomiting, hearing or vision changes, bowel or bladder incontinence, weakness. PMH: seizures, multiple myeloma, HTN, anxiety, GERD PSH: denies SHx: denies alcohol, tobacco, illicit drug use FHx: mother (breast cancer) Allergies: NKDA PMD: Dr. Littlejohn Planer Offbearer: Dr. Kinsey Present on Admission - Present on Admission Any Indicators Present on Admission: No Review of Systems - Review of Systems All systems: reviewed and no additional remarkable complaints except (as stated im HPI) Past Patient History - Infectious Disease Hx of Infectious Diseases: None - Past Social History Smoking Status: Never Smoked - CARDIAC Hx Pacemaker: No - PULMONARY Hx Respiratory Disorders: Yes Hx Sleep Apnea: Yes - NEUROLOGICAL Hx Paralysis: No Hx Seizures: Yes - HEENT Hx HEENT Problems: No - RENAL Hx Chronic Kidney Disease: No - ENDOCRINE/METABOLIC Hx Endocrine Disorders: No - HEMATOLOGICAL/ONCOLOGICAL Hx Blood Transfusions: Yes (2013) Hx Blood Transfusion Reaction: No - INTEGUMENTARY Hx Dermatological Problems: No - MUSCULOSKELETAL/RHEUMATOLOGICAL Hx Musculoskeletal Disorders: No - GASTROINTESTINAL Hx Gastrointestinal Disorders: Yes Hx Gastroesophageal Reflux: Yes - GENITOURINARY/GYNECOLOGICAL Hx Genitourinary Disorders: No - PSYCHIATRIC Hx Emotional Abuse: No Hx Physical Abuse: No Hx Substance Use: No - SURGICAL HISTORY Hx Surgeries: Yes - ANESTHESIA Hx Anesthesia Reactions: No Hx Malignant Hyperthermia: No Meds Allergies/Adverse Reactions: Allergies Allergy/AdvReac Type Severity Reaction Status Date / Time No Known Allergies Allergy Verified 04/13/18 15:42 Physical Exam - Constitutional Appears: Non-toxic, No Acute Distress - Head Exam Head Exam: ATRAUMATIC, NORMOCEPHALIC - Eye Exam Eye Exam: EOMI, Normal appearance, PERRL - ENT Exam ENT Exam: Mucous Membranes Moist - Neck Exam Neck exam: Positive for: Normal Inspection - Respiratory Exam Respiratory Exam: Clear to Auscultation Bilateral, NORMAL BREATHING PATTERN. absent: Rales, Rhonchi, Wheezes, Respiratory Distress - Cardiovascular Exam Cardiovascular Exam: Tachycardia, REGULAR RHYTHM, +S1, +S2. absent: Systolic Murmur - GI/Abdominal Exam GI & Abdominal Exam: Soft. absent: Distended, Firm, Guarding, Rebound, Rigid, Tenderness - Extremities Exam Extremities exam: Positive for: normal capillary refill, pedal edema, pedal p ulses present - Neurological Exam Neurological exam: Alert, CN II-XII Intact, Oriented x3 - Psychiatric Exam Psychiatric exam: Normal Affect, Normal Mood - Skin Skin Exam: Dry, Intact, Normal Color, Warm Results - Vital Signs Recent Vital Signs: Last Vital Signs Temp 98.5 F 04/13/18 03:07 Pulse 99 H 04/13/18 03:07 Resp 22 04/13/18 03:07 BP 124/64 04/13/18 03:07 Pulse Ox 90 L 04/13/18 03:07 - Labs Result Diagrams: 04/13/18 03:37 04/13/18 03:37 Labs: Laboratory Results - last 24 hr 04/13/18 04/13/18 04/13/18 03:37 03:37 03:37 WBC 9.6 RBC 3.37 L Hgb 10.6 L Hct 32.8 L MCV 97.3 MCH 31.5 MCHC 32.3 RDW 13.8 Plt Count 423 MPV 8.8 Neut % (Auto) 77.3 H Lymph % (Auto) 13.0 L [place] % (Auto) 8.8 H Eos % (Auto) 0.6 L Baso % (Auto) 0.3 Lymph # (Auto) 1.3 [place] # (Auto) 0.9 H Eos # (Auto) 0.1 Baso # (Auto) 0.03 Absolute Neuts (auto) 7.42 H PT 11.9 INR 1.07 APTT 29.1 Sodium 135 Potassium 3.5 L Chloride 105 Carbon Dioxide 19 L Anion Gap 15 BUN 9 Creatinine 1.1 Est GFR ( Amer) 60 Est GFR (Non-Af Amer) 49 Random Glucose 146 H Calcium 8.8 Magnesium 1.8 Total Bilirubin 0.4 AST 30 ALT < 6 L Alkaline Phosphatase 87 Lactate Dehydrogenase 479 Total Creatine Kinase 441 H Troponin I < 0.01 Total Protein 9.2 H Albumin 4.1 Globulin 5.1 Albumin/Globulin Ratio 0.8 L Assessment & Plan - Assessment and Plan (Free Text) Assessment: Patient is a 67 year old female with past medical history of seizures, multiple myeloma, HTN, anxiety, GERD presenting with chief complaint of seizures. Plan: Seizures - CT head shows mild atrophy, no acute hemorrhage or mass effect - MRI from 05/2017 showed age related changes, old infarction vs. gliosis in right insular cortex - 500 mg Keppra give in ED - Neurology consulted. Appreciate recs. - NS @ 100 ccs/hr - Keppra 500 mg IV Q12 - Seizure precautions, Neurochecks - EEG Hypokalemia - monitor and replete PPX - Lovenox 40 mg SC daily - Protonix 40 mg IV daily Case discussed with Dr. Veena Arora PGY-1 - Date & Time Date: 04/13/18 Time: 04:38 <Niranjan Curiel - Last Filed: 04/13/18 19:16> Results - Vital Signs Recent Vital Signs: Last Vital Signs Temp 98.6 F 04/13/18 18:00 Pulse 83 04/13/18 18:00 Resp 16 04/13/18 18:00 BP 126/77 04/13/18 18:00 Pulse Ox 97 04/13/18 08:00 - Labs Result Diagrams: 04/13/18 03:37 04/13/18 03:37 Labs: Laboratory Results - last 24 hr 04/13/18 04/13/18 04/13/18 03:37 03:37 03:37 WBC 9.6 RBC 3.37 L Hgb 10.6 L Hct 32.8 L MCV 97.3 MCH 31.5 MCHC 32.3 RDW 13.8 Plt Count 423 MPV 8.8 Neut % (Auto) 77.3 H Lymph % (Auto) 13.0 L [place] % (Auto) 8.8 H Eos % (Auto) 0.6 L Baso % (Auto) 0.3 Lymph # (Auto) 1.3 [place] # (Auto) 0.9 H Eos # (Auto) 0.1 Baso # (Auto) 0.03 Absolute Neuts (auto) 7.42 H PT 11.9 INR 1.07 APTT 29.1 Sodium 135 Potassium 3.5 L Chloride 105 Carbon Dioxide 19 L Anion Gap 15 BUN 9 Creatinine 1.1 Est GFR ( Amer) 60 Est GFR (Non-Af Amer) 49 Random Glucose 146 H Calcium 8.8 Magnesium 1.8 Total Bilirubin 0.4 AST 30 ALT < 6 L Alkaline Phosphatase 87 Lactate Dehydrogenase 479 Total Creatine Kinase 441 H CK-MB (CK-2) 2.2 CK-MB (CK-2) % Cancelled Troponin I < 0.01 Total Protein 9.2 H Albumin 4.1 Globulin 5.1 Albumin/Globulin Ratio 0.8 L Urine Color Urine Appearance Urine pH Ur Specific [place] Urine Protein Urine Glucose (UA) Urine Ketones Urine Blood Urine Nitrate Urine Bilirubin Urine Urobilinogen Ur Leukocyte Esterase Urine RBC Urine WBC Ur Epithelial Cells 04/13/18 05:20 WBC RBC Hgb Hct MCV MCH MCHC RDW Plt Count MPV Neut % (Auto) Lymph % (Auto) [place] % (Auto) Eos % (Auto) Baso % (Auto) Lymph # (Auto) [place] # (Auto) Eos # (Auto) Baso # (Auto) Absolute Neuts (auto) PT INR APTT Sodium Potassium Chloride Carbon Dioxide Anion Gap BUN Creatinine Est GFR ( Amer) Est GFR (Non-Af Amer) Random Glucose Calcium Magnesium Total Bilirubin AST ALT Alkaline Phosphatase Lactate Dehydrogenase Total Creatine Kinase CK-MB (CK-2) CK-MB (CK-2) % Troponin I Total Protein Albumin Globulin Albumin/Globulin Ratio Urine Color Light yellow Urine Appearance Clear Urine pH 6.0 Ur Specific [place] 1.025 Urine Protein Trace H Urine Glucose (UA) Negative Urine Ketones 15 H Urine Blood Small H Urine Nitrate Negative Urine Bilirubin Negative Urine Urobilinogen 0.2 Ur Leukocyte Esterase Negative Urine RBC 0 - 2 Urine WBC None Ur Epithelial Cells 0 - 2 Attending/Attestation - Attestation I have personally seen and examined this patient.: Yes I have fully participated in the care of the patient.: Yes I have reviewed all pertinent clinical information: Yes
[2018-04-13 04:51] LABS: CK-MB 2.2 ng/mL (0.0-3.6)
[2018-04-13] MEDS ORDERED: Potassium Chloride 20 mEq ER Tab PO STA (05:16)
[2018-04-13 05:30] LABS: URINE BILIRUBIN NEGATIVE (NEGATIVE); URINE BLOOD SMALL (NEGATIVE); URINE COLOR LIGHT YELLOW (YELLOW); URINE GLUCOSE (UA) NEGATIVE (NEGATIVE); URINE LEUKOCYTE ESTERASE NEGATIVE Leu/uL (NEGATIVE); URINE PROTEIN TRACE mg/dL (<30 mg/dL); URINE UROBILINOGEN 0.2 E.U./dL (<1 E.U./dL)
[2018-04-13 05:31] LABS: URINE APPEARANCE CLEAR (CLEAR)
[2018-04-13] MEDS: Sodium Chloride 0.9% 1,000 ML IV SCH ×2 (05:38→16:45)
[2018-04-13 05:40] LABS: URINE EPITHELIAL CELLS 0 - 2 /hpf (0-5); URINE RBC 0 - 2 /hpf (0-2)
[2018-04-13] MEDS: levETIRAcetam 500mg IVPB 500 MG/100 ML BAG IVPB SCH ×2 (10:20→21:09)
[2018-04-13] MEDS: Enoxaparin 40 mg Syringe SC SCH (10:21)
--- NOTE | 2018-04-13 14:27 | CP.PCM.CON ---
History of Present Illness - History of Present Illness History of Present Illness: Neurology Consultation Note: Consult requested by Dr. Lopez Mrs. Mahan is a 67-year-old woman with a past medical history of seizures, multiple myeloma, HTN, GERD, anxiety, who was brought in to the ED after she lost consciousness and had clenched fists with stiffness. She states that she feels normal now. She had no complaints and denied tongue biting, urinary/bowel incontinence or head injury. Review of Systems - Constitutional Constitutional: As Per HPI - EENT Eyes: absent: As Per HPI, Blind Spots, Blurred Vision, Change in Vision, Decreased Night Vision, Diplopia, Discharge, Dry Eye, Exophthalmos, Floaters, Irritation, Itchy Eyes, Loss of Peripheral Vision, Pain, Photophobia, Requires Corrective Lenses, Sees Flashes, Spots in Vision, Tunnel Vision, Other Visual Disturbances, Loss of Vision, Other Ears: absent: As Per HPI, Decreased Hearing, Ear Discharge, Ear Pain, Tinnitus, Abnormal Hearing, Disequilibrium, Dizziness, Other Nose/Mouth/Throat: absent: As Per HPI, Epistaxis, Nasal Congestion, Nasal Discharge, Nasal Obstruction, Nasal Trauma, Nose Pain, Post Nasal Drip, Sinus Pain, Sinus Pressure, Bleeding Gums, Change in Voice, Dental Pain, Dry Mouth, Dy sphagia, Halitosis, Hoarsness, Lip Swelling, Mouth Lesions, Mouth Pain, Odynophagia, Sore Throat, Throat Swelling, Tongue Swelling, Facial Pain, Neck Pain, Neck Mass, Other - Cardiovascular Cardiovascular: absent: As Per HPI, Acrocyanosis, Chest Pain, Chest Pain at Rest, Chest Pain with Activity, Claudication, Diaphoresis, Dyspnea, Dyspnea on Exertion, Edema, Irregular Heart Rhythm, Pain Radiating to Arm/Neck/Jaw, Leg Edema, Leg Ulcers, Lightheadedness, Orthopnea, Palpitations, Paroxysmal Nocturnal Dyspnea, Pedal Edema, Radiating Pain, Rapid Heart Rate, Slow Heart Rate, Syncope, Other - Respiratory Respiratory: absent: As Per HPI, Cough, Dyspnea, Hemoptysis, Dyspnea on Exertion, Wheezing, Snoring, Stridor, Pain on Inspiration, Chest Congestion, Excessive Mucous Production, Change in Mucous Color, Pain with Coughing, Other - Gastrointestinal Gastrointestinal: absent: As Per HPI, Abdominal Pain, Belching, Bloating, Change in Bowel Habits, Change in Stool Character, Coffee Ground Emesis, Constipation, Cramping, Diarrhea, Dyspepsia, Dysphagia, Early Satiety, Excessive Flatus, Fecal Incontinence, Heartburn, Hematemesis, Hematochezia, Loose Stools, Melena, Nausea, Odynophagia, Temesmus, Vomiting, Other - Musculoskeletal Musculoskeletal: As Per HPI. absent: Abnormal Gait, Arthralgias, Atrophy, Back Pain, Deformity, Joint Swelling, Limited Range of Motion, Loss of Height, Muscle Cramps, Muscle Weakness, Myalgias, Neck Pain, Numbness, Radiating Pain into Limb, Stiffness, Tingling, Other - Integumentary Integumentary: absent: As Per HPI, Acne, Alopecia, Bleeding Lesions, Change in Hair, Change in Nails, Change in Pigmentation, Changing Lesions, Dry Skin, Erythema, Furuncle, Hirsutism, Lesions, New Lesions, Non-Healing Lesions, Photosensitivity, Pruritus, Rash, Skin Pain, Skin Ulcer, Sores, Striae, Swelling, Unusual Bruising, Wounds, Jaundice, Other - Neurological Neurological: As Per HPI - Psychiatric Psychiatric: absent: As Per HPI, Abnormal Sleep Pattern, Anhedonia, Anxiety, Auditory Hallucinations, Behavioral Changes, Change in Appetite, Change in Libido, Confusion, Depression, Difficulty Concentrating, Hallucinations, Homicidal Ideation, Hopelessness, Irritability, Memory Loss, Mood Swings, Panic Attacks, Paranoia, Suicidal Ideation, Visual Hallucinations, Tactile Hallucinations, Other - Endocrine Endocrine: absent: As Per HPI, Change in Body Appearance, Change in Libido, Cold Intolorance, Deepening of Voice, Excessive Sweating, Fatigue, Flushing, Heat Intolorance, Increase in Ring/Shoe/Hat Size, Palpitations, Polydipsia, Polyphagia, Polyuria, Other - Hematologic/Lymphatic Hematologic: absent: As Per HPI, Easy Bleeding, Easy Bruising, Lymphadenopathy, Other Past Patient History - Infectious Disease Hx of Infectious Diseases: None - Past Social History Smoking Status: Never Smoked - CARDIAC Hx Pacemaker: No - PULMONARY Hx Respiratory Disorders: Yes Hx Sleep Apnea: Yes - NEUROLOGICAL Hx Paralysis: No Hx Seizures: Yes - HEENT Hx HEENT Problems: No - RENAL Hx Chronic Kidney Disease: No - ENDOCRINE/METABOLIC Hx Endocrine Disorders: No - HEMATOLOGICAL/ONCOLOGICAL Hx Blood Transfusions: Yes (2013) Hx Blood Transfusion Reaction: No - INTEGUMENTARY Hx Dermatological Problems: No - MUSCULOSKELETAL/RHEUMATOLOGICAL Hx Musculoskeletal Disorders: No - GASTROINTESTINAL Hx Gastrointestinal Disorders: Yes Hx Gastroesophageal Reflux: Yes - GENITOURINARY/GYNECOLOGICAL Hx Genitourinary Disorders: No - PSYCHIATRIC Hx Emotional Abuse: No Hx Physical Abuse: No Hx Substance Use: No - SURGICAL HISTORY Hx Surgeries: Yes - ANESTHESIA Hx Anesthesia Reactions: No Hx Malignant Hyperthermia: No Meds Allergies/Adverse Reactions: Allergies Allergy/AdvReac Type Severity Reaction Status Date / Time No Known Allergies Allergy Verified 04/13/18 03:01 - Medications Medications: Current Medications Enoxaparin Sodium (Lovenox) 40 mg SC DAILY [facility]; Protocol Last Admin: 04/13/18 10:21 Dose: 40 mg Sodium Chloride (Sodium Chloride 0.9%) 1,000 mls @ 100 mls/hr IV .Q10H [facility] Last Admin: 04/13/18 05:38 Dose: 100 mls/hr Levetiracetam (Keppra 500mg Ivpb) 500 mg in 100 mls @ 215 mls/hr IVPB Q12 [facility] Last Admin: 04/13/18 10:20 Dose: 215 mls/hr Ibuprofen (Motrin Tab) 600 mg PO Q6H PRN PRN Reason: Pain, moderate (4-7) Ondansetron HCl (Zofran Inj) 4 mg IVP Q4H PRN PRN Reason: Nausea/Vomiting Pantoprazole Sodium (Protonix Inj) 40 mg IVP DAILY [facility] Last Admin: 04/13/18 09:37 Dose: 40 mg Physical Exam - Constitutional Appears: Well - Head Exam Head Exam: ATRAUMATIC, NORMAL INSPECTION, NORMOCEPHALIC - Eye Exam Eye Exam: EOMI, Normal appearance, PERRL Pupil Exam: NORMAL ACCOMODATION, PERRL - ENT Exam ENT Exam: Mucous Membranes Moist, Normal Exam - Neck Exam Neck exam: Positive for: Normal Inspection - Respiratory Exam Respiratory Exam: Clear to Auscultation Bilateral, NORMAL BREATHING PATTERN - Cardiovascular Exam Cardiovascular Exam: REGULAR RHYTHM, +S1, +S2 - GI/Abdominal Exam GI & Abdominal Exam: Normal Bowel Sounds, Soft. absent: Tenderness - Extremities Exam Extremities exam: Positive for: normal inspection - Back Exam Back exam: NORMAL INSPECTION - Neurological Exam Neurological exam: Alert, CN II-XII Intact, Normal Gait, Oriented x3, Reflexes Normal - Psychiatric Exam Psychiatric exam: Normal Affect, Normal Mood - Skin Skin Exam: Dry, Intact, Normal Color, Warm Results - Vital Signs Recent Vital Signs: Last Vital Signs Temp 98.5 F 04/13/18 12:00 Pulse 90 04/13/18 13:50 Resp 20 04/13/18 12:00 BP 133/61 04/13/18 12:00 Pulse Ox 97 04/13/18 08:00 - Labs Result Diagrams: 04/13/18 03:37 04/13/18 03:37 Labs: Laboratory Results - last 24 hr 04/13/18 04/13/18 04/13/18 03:37 03:37 03:37 WBC 9.6 RBC 3.37 L Hgb 10.6 L Hct 32.8 L MCV 97.3 MCH 31.5 MCHC 32.3 RDW 13.8 Plt Count 423 MPV 8.8 Neut % (Auto) 77.3 H Lymph % (Auto) 13.0 L [place] % (Auto) 8.8 H Eos % (Auto) 0.6 L Baso % (Auto) 0.3 Lymph # (Auto) 1.3 [place] # (Auto) 0.9 H Eos # (Auto) 0.1 Baso # (Auto) 0.03 Absolute Neuts (auto) 7.42 H PT 11.9 INR 1.07 APTT 29.1 Sodium 135 Potassium 3.5 L Chloride 105 Carbon Dioxide 19 L Anion Gap 15 BUN 9 Creatinine 1.1 Est GFR ( Amer) 60 Est GFR (Non-Af Amer) 49 Random Glucose 146 H Calcium 8.8 Magnesium 1.8 Total Bilirubin 0.4 AST 30 ALT < 6 L Alkaline Phosphatase 87 Lactate Dehydrogenase 479 Total Creatine Kinase 441 H CK-MB (CK-2) 2.2 CK-MB (CK-2) % Cancelled Troponin I < 0.01 Total Protein 9.2 H Albumin 4.1 Globulin 5.1 Albumin/Globulin Ratio 0.8 L Urine Color Urine Appearance Urine pH Ur Specific [place] Urine Protein Urine Glucose (UA) Urine Ketones Urine Blood Urine Nitrate Urine Bilirubin Urine Urobilinogen Ur Leukocyte Esterase Urine RBC Urine WBC Ur Epithelial Cells 04/13/18 05:20 WBC RBC Hgb Hct MCV MCH MCHC RDW Plt Count MPV Neut % (Auto) Lymph % (Auto) [place] % (Auto) Eos % (Auto) Baso % (Auto) Lymph # (Auto) [place] # (Auto) Eos # (Auto) Baso # (Auto) Absolute Neuts (auto) PT INR APTT Sodium Potassium Chloride Carbon Dioxide Anion Gap BUN Creatinine Est GFR ( Amer) Est GFR (Non-Af Amer) Random Glucose Calcium Magnesium Total Bilirubin AST ALT Alkaline Phosphatase Lactate Dehydrogenase Total Creatine Kinase CK-MB (CK-2) CK-MB (CK-2) % Troponin I Total Protein Albumin Globulin Albumin/Globulin Ratio Urine Color Light yellow Urine Appearance Clear Urine pH 6.0 Ur Specific [place] 1.025 Urine Protein Trace H Urine Glucose (UA) Negative Urine Ketones 15 H Urine Blood Small H Urine Nitrate Negative Urine Bilirubin Negative Urine Urobilinogen 0.2 Ur Leukocyte Esterase Negative Urine RBC 0 - 2 Urine WBC None Ur Epithelial Cells 0 - 2 Assessment & Plan (1) Seizure Assessment and Plan: Will obtain MRI of the brain with and without contrast for further evaluation considering her history. Will also obtain EEG for 1 hour (awake and drowsy). She will have to remain on Keppra 500 mg BID. I discussed the driving laws with her and told her that she is not allowed to drive for at lease 3 months and should never go swimming alone. Thank you for this consultation. Status: Acute
[2018-04-13 18:10] VITALS: BMI 22.3
[2018-04-13] MEDS ORDERED: Influenza Vaccine 60 mcg/0.5 mL SYR (4YR UP) IM ONE (18:10)
[2018-04-13] MEDS ORDERED: Pneumococcal 23-Valent Vaccine IM ONE (18:10)
--- NOTE | 2018-04-13 20:09 | CARD ---
APPROVED REPORT Date of service: 04/13/2018 EKG Measurement Heart [id number] <Conclusion> Sinus tachycardia ST & T wave abnormality, consider anterior ischemia Abnormal ECG
[2018-04-14] MEDS: Sodium Chloride 0.9% 1,000 ML IV SCH ×2 (03:05→11:48)
[2018-04-14 07:36] LABS: BASO # 0.04 K/mm3 (0.0-2.0); BASO % 0.6 % (0.0-3.0); EOS # 0.1 (0.0-0.7); EOS % 1.5 % (1.5-5.0); HEMOGLOBIN 9.7 g/dL (12.0-16.0); LYMPH # 1.5 (1.2-3.4); LYMPH % 23.2 % (22.0-35.0); MEAN CORPUSCULAR HEMOGLOBIN 31.3 pg (25.0-35.0); MEAN CORPUSCULAR HGB CONC 31.3 g/dl (31.0-37.0); MEAN PLATELET VOLUME 9.3 fl (7.0-11.0); MONO # 0.8 (0.1-0.6); RBC 3.1 10^6/uL (3.5-6.1); RED CELL DISTRIBUTION WIDTH 14.1 % (11.5-14.5); WHITE BLOOD COUNT 6.5 10^3/uL (4.5-11.0)
[2018-04-14 08:29] LABS: ALB/GLOB RATIO 0.8 (1.1-1.8); ALBUMIN 3.7 g/dL (3.0-4.8); ALT/SGPT < 6 U/L (7-56); AST/SGOT 25 U/L (14-36); BLOOD UREA NITROGEN 5 mg/dL (7-21); GFR NON-AFRICAN AMERICAN 49
[2018-04-14] MEDS ORDERED: Potassium Chloride 20 mEq ER Tab PO STA (09:00)
[2018-04-14] MEDS: levETIRAcetam 500mg IVPB 500 MG/100 ML BAG IVPB SCH ×2 (09:20→21:00)
[2018-04-14] MEDS: Enoxaparin 40 mg Syringe SC SCH (09:20)
[2018-04-14] MEDS ORDERED: Gadodiamide 287 MG/ML VIAL (15ML) IV ONE (09:55)
--- NOTE | 2018-04-14 11:51 | CP.PCM.PN ---
<Abiel Alcantar - Last Filed: 04/14/18 11:48> Subjective - Date & Time of Evaluation Date of Evaluation: 04/14/18 Time of Evaluation: 08:00 - Subjective Subjective: Abiel Alcantar PGY1 Medicine Progress Note for Dr. Madison Patient was seen and examined at bedside this morning. Vital signs are stable. No adverse overnight events. Denies seziure-like activity, cp, sob, abdominal pain, n/v/d. A full 12 point ROS was conducted and unremarkable except as stated above. Objective - Vital Signs/Intake and Output Vital Signs (last 24 hours): Temp Pulse Resp BP Pulse Ox 98.4 F 87 20 122/77 98 04/14/18 06:00 04/14/18 06:00 04/14/18 06:00 04/14/18 06:00 04/14/18 06:00 Intake and Output: 04/14/18 04/14/18 06:59 18:59 Intake Total 1440 Output Total 2 Balance 1438 - Medications Medications: Current Medications Enoxaparin Sodium (Lovenox) 40 mg SC DAILY [facility]; Protocol Last Admin: 04/14/18 09:20 Dose: 40 mg Sodium Chloride (Sodium Chloride 0.9%) 1,000 mls @ 100 mls/hr IV .Q10H [facility] Last Admin: 04/14/18 03:05 Dose: 100 mls/hr Levetiracetam (Keppra 500mg Ivpb) 500 mg in 100 mls @ 215 mls/hr IVPB Q12 [facility] Last Admin: 04/14/18 09:20 Dose: 215 mls/hr Ibuprofen (Motrin Tab) 600 mg PO Q6H PRN PRN Reason: Pain, moderate (4-7) Ondansetron HCl (Zofran Inj) 4 mg IVP Q4H PRN PRN Reason: Nausea/Vomiting Pantoprazole Sodium (Protonix Ec Tab) 40 mg PO 0600 [facility] - Labs Labs: 04/14/18 06:50 04/14/18 06:50 PT 11.9 SECONDS (9.4-12.5) 04/13/18 03:37 INR 1.07 04/13/18 03:37 APTT 29.1 Seconds (26.9-38.3) 04/13/18 03:37 - Constitutional Appears: Non-toxic, No Acute Distress - Head Exam Head Exam: ATRAUMATIC, NORMOCEPHALIC - Eye Exam Eye Exam: EOMI, Normal appearance, PERRL - ENT Exam ENT Exam: Mucous Membranes Moist - Neck Exam Neck exam: Positive for: Normal Inspection - Respiratory Exam Respiratory Exam: Clear to Auscultation Bilateral, NORMAL BREATHING PATTERN. absent: Rales, Rhonchi, Wheezes, Respiratory Distress - Cardiovascular Exam Cardiovascular Exam: REGULAR RHYTHM, +S1, +S2. absent: Systolic Murmur - GI/Abdominal Exam GI & Abdominal Exam: Soft. absent: Distended, Firm, Guarding, Rebound, Rigid, Tenderness - Extremities Exam Extremities exam: Positive for: normal capillary refill, pedal pulses present - Neurological Exam Neurological exam: Alert, CN II-XII Intact, Oriented x3 - Psychiatric Exam Psychiatric exam: Normal Affect, Normal Mood - Skin Skin Exam: Dry, Intact, Normal Color, Warm Assessment and Plan - Assessment and Plan (Free Text) Assessment: Patient is a 67 year old female with past medical history of seizures, multiple myeloma, HTN, anxiety, GERD who presented to the ED for loss of consciousness. Patient admitted for seizures on telemetry. Neurology is on consult. Plan: Seizures - f/u Brain MRI results - f/u EEG results - c/w 500 mg Keppra q12 - As per neuro recs, d/w patient to avoid driving for 3 months and avoid swimming alone - Neurology on consult (Dr. Ramos). Recs appreciated. - c/w NS @ 100 ccs/hr - c/w seizure precautions and neurochecks - PT - HHD - Hx of multiple myeloma Nausea - c/w zofran prn Hypokalemia - replete with 40 meq K-dur - monitor Hx HTN - normotensive PPX - Lovenox SC - Protonix PO Dispo: Monitor patient on tele. Follow up results of MRI and EEG study. Case was discussed and reviewed with Attending Physician, Dr. Madison <Gabbie Madison R - Last Filed: 04/14/18 16:37> Objective - Vital Signs/Intake and Output Vital Signs (last 24 hours): Temp Pulse Resp BP Pulse Ox 98.9 F 89 20 134/92 H 98 04/14/18 12:00 04/14/18 14:00 04/14/18 12:00 04/14/18 12:00 04/14/18 06:00 Intake and Output: 04/14/18 04/14/18 06:59 18:59 Intake Total 1440 Output Total 2 Balance 1438 - Medications Medications: Current Medications Aspirin (Ecotrin) 81 mg PO DAILY [facility] Atorvastatin Calcium (Lipitor) 40 mg PO DIN [facility] Enoxaparin Sodium (Lovenox) 40 mg SC DAILY [facility]; Protocol Last Admin: 04/14/18 09:20 Dose: 40 mg Levetiracetam (Keppra 500mg Ivpb) 500 mg in 100 mls @ 215 mls/hr IVPB Q12 [facility] Last Admin: 04/14/18 09:20 Dose: 215 mls/hr Ibuprofen (Motrin Tab) 600 mg PO Q6H PRN PRN Reason: Pain, moderate (4-7) Ondansetron HCl (Zofran Inj) 4 mg IVP Q4H PRN PRN Reason: Nausea/Vomiting Pantoprazole Sodium (Protonix Ec Tab) 40 mg PO 0600 [facility] - Labs Labs: 04/14/18 06:50 04/14/18 06:50 PT 11.9 SECONDS (9.4-12.5) 04/13/18 03:37 INR 1.07 04/13/18 03:37 APTT 29.1 Seconds (26.9-38.3) 04/13/18 03:37 Attending/Attestation - Attestation I have personally seen and examined this patient.: Yes I have fully participated in the care of the patient.: Yes I have reviewed all pertinent clinical information, including history, physical exam and plan: Yes Notes (Text): Patient seen and examined by me with resident at approximately 8:50AM on 04/14/18. Case including HPI, physical exam, and assessment and plan discussed with resident. Agree with above with following additions/corrections. Patient is a 67-year-old female past medical history significant for seizures, multiple myeloma, hypertension, GERD, and anxiety that presented to the emergency room with seizures. Patient states she is feeling fine. Patient is confused. Per partner at bedside, "whenever she has a seizure, it can take up to 5 days for her confusion to go away." Patient is asking about diarrhea and then says she does not have diarrhea. Then she is asking when her next appointment is. Patient is denying dizziness or lightheadedness. No headaches. No chest pain or palpitations. No shortness of breath. No dysuria. No nausea, vomiting, or abdominal pain. Unclear if review of systems are accurate as patient is confused. Physical exam: General: Awake and alert lying in bed in no acute distress. HEENT: Normocephalic, atraumatic. Extraocular muscles intact, pupils equal and reactive, no scleral icterus. Oropharynx is pink and moist. No pharyngeal erythema or exudate appreciated. Neck is supple. Cardiovascular: Normal rhythm. Normal S1 and S2. No murmurs, rubs, or gallops appreciated Pulmonary: Normal respiratory effort. No rhonchi, rales, or wheezing appreciated. Gastrointestinal: Soft, nondistended. Nontender. Positive bowel sounds all 4 quadrants. No guarding. Musculoskeletal: Moves all extremities. No calf tenderness. No edema appreciated. Central nervous system: Awake and alert. With some confusion. Dermatologic: Skin warm and dry. Assessment and plan: Patient is a 67-year-old female past medical history sign ificant for seizures, multiple myeloma, hypertension, GERD, and anxiety that presented to the emergency room with seizures. 1. Seizure. Neurologist following, recommendations appreciated. Pending EEG results. Continue Keppra. Brain MRI per radiologist showed there are no enhancing parenchymal nor extra-axial masses or collections seen to suggest metastases, no evidence of unusual meningeal enhancement; small curvilinear focus of restricted diffusion in the posterior patella that could represent a small subacute to chronic infarct; chronic white matter and basal nuclei ischemic changes; mild to moderate significant central volume loss which has progressed since prior exam; previously noted multiple small rounded lytic lesions (consistent with the patient's history of multiple myeloma) scattered throughout the inner table of the calvarium are less well seen on the study is compared to a high-resolution bone window on CT scan 04/12/2018; chronic bilateral basal nuclear lacunar type infarcts admixed with dilated perivascular spaces. Continue seizure precautions. Continue neurochecks. 2. Subacute to chronic lacunar infarct seen on MRI brain. Started on ASA and Lipitor. PT eval and treat. Neurology following. Continue neurochecks. Follow CTA head/neck. Follow up 2d echo. 3. Confusion. Secondary to seizure versus questionable vascular dementia. Continue aspirin and Lipitor. Continue Keppra. Continue supportive care. 3. Hypokalemia. Replace potassium. Follow up repeat labs in a.m. 4. Hypercholesterolemia. Started on Lipitor. 5. Multiple myeloma. Patient to follow up outpatient chemotherapy with oncologist Dr. Kinsey. 6. GI/DVT prophylaxis. Protonix/Lovenox. 7. Patient is a full code. Case discussed in detail with patient and patient's partner at bedside regarding current diagnosis and treatment plan. All questions answered.
--- NOTE | 2018-04-14 12:28 | MRI ---
Date of service: 04/14/2018 PROCEDURE: MRI BRAIN WITH AND WITHOUT CONTRAST HISTORY: Seizure with history of cancer COMPARISON: Comparison made with CT scan brain 04/12/2018 as well as prior MRI of the brain dated 06/10/2017 TECHNIQUE: Multiplanar, multisequence MR images of the brain were obtained with and without intravenous contrast enhancement. FINDINGS: Is HEMORRHAGE: No acute parenchymal, subarachnoid or extra-axial hemorrhage. No evidence of hemosiderin deposition is identified on gradient echo weighted sequence. DWI: There is a very small the curvilinear focus of mild restricted diffusion in the right posterior putamen of which could represent a small subacute to chronic infarct. BRAIN PARENCHYMA: Mild diffuse and confluent chronic white matter ischemic changes seen extending peripherally into the deep and to a lesser degree subcortical white matter both cerebral hemispheres. In addition, there also appear to be a few scattered chronic bilateral basal nuclei lacunar type infarcts admixed with dilated perivascular spaces. Moderate to significant central volume loss evidenced by disproportionate enlargement of the ventricles compared sulci.. These changes have progressed since prior MRI 06/10/2017 ENHANCEMENT: No enhancing parenchymal nor extra-axial masses or collections. No evidence of unusual meningeal enhancement.. VENTRICLES: The ventricles are dilated but do not appear to be under tension. CRANIUM: Previously noted multiple small rounded lytic lesions (consistent with this patient's history of multiple myeloma) scattered throughout the inner table of the calvarium are less well seen on this study as compared to high-resolution bone window on CT scan 04/12/2018. ORBITS: Orbits and contents grossly unremarkable. PARANASAL SINUSES/MASTOIDS: Mild moderate mucosal thickening again seen in the left maxillary antrum VASCULAR SYSTEM: Visualized major vascular flow voids at skull base patent. OTHER FINDINGS: None . IMPRESSION: There are no enhancing parenchymal nor extra-axial masses or collections seen to suggest metastases. No evidence of unusual meningeal enhancement. There is a small curvilinear focus of restricted diffusion in the posterior patella that could represent a small subacute-chronic infarct. Chronic white matter and basal nuclei ischemic changes.. Mild moderate to fairly significant central volume loss which has progressed since prior exam. Previously noted multiple small rounded lytic lesions (consistent with this patient's history of multiple myeloma) scattered throughout the inner table of the calvarium are less well seen on this study as compared to high-resolution bone window on CT scan 04/12/2018. Note that these findings were discussed with 2 Ang Winkler at approximately 12:20 p.m. with written down and read back verification.
--- NOTE | 2018-04-14 15:23 | CP.PCM.PN ---
Subjective - Date & Time of Evaluation Date of Evaluation: 04/14/18 Time of Evaluation: 15:19 - Subjective Subjective: Neurology Progress Note Mrs. Mahan was seen and examined today at bedside. I reviewed the results of the MRI with her. She appears to have had a lacunar infarct that is in the right basal ganglia and is subacute and is less than a cm. Objective - Vital Signs/Intake and Output Vital Signs (last 24 hours): Temp Pulse Resp BP Pulse Ox 98.9 F 89 20 134/92 H 98 04/14/18 12:00 04/14/18 14:00 04/14/18 12:00 04/14/18 12:00 04/14/18 06:00 Intake and Output: 04/14/18 04/14/18 06:59 18:59 Intake Total 1440 Output Total 2 Balance 1438 - Medications Medications: Current Medications Aspirin (Ecotrin) 81 mg PO DAILY [facility] Atorvastatin Calcium (Lipitor) 20 mg PO DIN [facility] Enoxaparin Sodium (Lovenox) 40 mg SC DAILY [facility]; Protocol Last Admin: 04/14/18 09:20 Dose: 40 mg Levetiracetam (Keppra 500mg Ivpb) 500 mg in 100 mls @ 215 mls/hr IVPB Q12 [facility] Last Admin: 04/14/18 09:20 Dose: 215 mls/hr Ibuprofen (Motrin Tab) 600 mg PO Q6H PRN PRN Reason: Pain, moderate (4-7) Ondansetron HCl (Zofran Inj) 4 mg IVP Q4H PRN PRN Reason: Nausea/Vomiting Pantoprazole Sodium (Protonix Ec Tab) 40 mg PO 0600 [facility] - Labs Labs: 04/14/18 06:50 04/14/18 06:50 PT 11.9 SECONDS (9.4-12.5) 04/13/18 03:37 INR 1.07 04/13/18 03:37 APTT 29.1 Seconds (26.9-38.3) 04/13/18 03:37 - Constitutional Appears: Well - Head Exam Head Exam: ATRAUMATIC, NORMAL INSPECTION, NORMOCEPHALIC - Eye Exam Eye Exam: EOMI, Normal appearance, PERRL Pupil Exam: NORMAL ACCOMODATION, PERRL - ENT Exam ENT Exam: Mucous Membranes Moist, Normal Exam - Neck Exam Neck Exam: Full ROM, Normal Inspection. absent: Lymphadenopathy - Respiratory Exam Respiratory Exam: Clear to Ausculation Bilateral, NORMAL BREATHING PATTERN - Cardiovascular Exam Cardiovascular Exam: REGULAR RHYTHM, +S1, +S2. absent: Murmur - GI/Abdominal Exam GI & Abdominal Exam: Soft, Normal Bowel Sounds. absent: Tenderness - Rectal Exam Rectal Exam: NORMAL INSPECTION - Exam Exam: Circumcision, NORMAL INSPECTION External exam: NORMAL EXTERNAL EXAM Speculum exam: NORMAL SPECULUM EXAM Bimanual exam: NORMAL BIMANUAL EXAM - Extremities Exam Extremities Exam: Full ROM, Normal Capillary Refill, Normal Inspection. absent: Joint Swelling, Pedal Edema - Back Exam Back Exam: NORMAL INSPECTION - Neurological Exam Neurological Exam: Alert, Awake, CN II-XII Intact, Normal Gait, Oriented x3 Neuro motor strength exam: Left Upper Extremity: 5, Right Upper Extremity: 5, Left Lower Extremity: 5, Right Lower Extremity: 5 - Psychiatric Exam Psychiatric exam: Normal Affect, Normal Mood - Skin Skin Exam: Dry, Intact, Normal Color, Warm Assessment and Plan (1) Seizure Assessment & Plan: Continue Keppra 500 mg BID. Status: Acute (2) Ischemic stroke Assessment & Plan: Could be due to her risk factors. It is small vessel disease in origin. Continue aspirin 81 mg daily and lipitor 40 mg daily for secondary stroke prevention. I recommend obtaining a CTA of the head/neck for further evaluation of her vessels and an echocardiogram. Will need to check HbA1c, lipid panel, B12, folate, TSH, vitamin D levels as well. Status: Acute
[2018-04-14 15:30] LABS: HDL CHOLESTEROL 32 mg/dL (29-60)
[2018-04-14 15:41] LABS: LDL CHOLESTEROL 130 mg/dL (0-129)
[2018-04-14 20:25] LABS: FOLATE 7.6 ng/mL
--- NOTE | 2018-04-14 22:44 | CP.PCM.PN ---
Subjective - Date & Time of Evaluation Date of Evaluation: 04/14/18 Time of Evaluation: 22:43 - Subjective Subjective: # 22 angiocath was inserted in left distal forearm dorsal aspect. Patient has no complaints at this time and vitals are stable, not in distress. Objective - Vital Signs/Intake and Output Vital Signs (last 24 hours): Temp Pulse Resp BP Pulse Ox 98.4 F 88 18 141/84 94 L 04/14/18 17:33 04/14/18 17:33 04/14/18 17:33 04/14/18 17:33 04/14/18 17:33 Intake and Output: 04/14/18 04/15/18 18:59 06:59 Intake Total 1020 Balance 1020 - Medications Medications: Current Medications Aspirin (Ecotrin) 81 mg PO DAILY [facility] Last Admin: 04/14/18 17:45 Dose: 81 mg Atorvastatin Calcium (Lipitor) 40 mg PO DIN [facility] Last Admin: 04/14/18 17:45 Dose: 40 mg Enoxaparin Sodium (Lovenox) 40 mg SC DAILY [facility]; Protocol Last Admin: 04/14/18 09:20 Dose: 40 mg Levetiracetam (Keppra 500mg Ivpb) 500 mg in 100 mls @ 215 mls/hr IVPB Q12 [facility] Last Admin: 04/14/18 21:00 Dose: 215 mls/hr Ibuprofen (Motrin Tab) 600 mg PO Q6H PRN PRN Reason: Pain, moderate (4-7) Ondansetron HCl (Zofran Inj) 4 mg IVP Q4H PRN PRN Reason: Nausea/Vomiting Pantoprazole Sodium (Protonix Ec Tab) 40 mg PO 0600 [facility] - Labs Labs: 04/14/18 06:50 04/14/18 06:50 PT 11.9 SECONDS (9.4-12.5) 04/13/18 03:37 INR 1.07 04/13/18 03:37 APTT 29.1 Seconds (26.9-38.3) 04/13/18 03:37
[2018-04-14 23:57] LABS: BARBITURATES, UR NEGATIVE (NEGATIVE); BENZODIAZEPINES, UR NEGATIVE (NEGATIVE); OPIATES, UR NEGATIVE (NEGATIVE); PHENCYCLIDINE, UR NEGATIVE (NEGATIVE)
[2018-04-15] MEDS: Pantoprazole 40 mg EC Tab PO SCH (05:56)
[2018-04-15 07:16] LABS: BASO # 0.04 K/mm3 (0.0-2.0); BASO % 0.6 % (0.0-3.0); EOS # 0.1 (0.0-0.7); EOS % 1.4 % (1.5-5.0); LYMPH # 1.4 (1.2-3.4); LYMPH % 19.3 % (22.0-35.0); MEAN CELL VOLUME 98.8 fl (80.0-105.0); MEAN CORPUSCULAR HEMOGLOBIN 30.4 pg (25.0-35.0); MEAN CORPUSCULAR HGB CONC 30.8 g/dl (31.0-37.0); MEAN PLATELET VOLUME 9.5 fl (7.0-11.0); MONO # 0.9 (0.1-0.6); MONO % 12.1 % (1.0-6.0); RBC 3.29 10^6/uL (3.5-6.1); WHITE BLOOD COUNT 7.3 10^3/uL (4.5-11.0)
[2018-04-15 07:41] LABS: ALB/GLOB RATIO 0.8 (1.1-1.8); ALT/SGPT < 6 U/L (7-56); AST/SGOT 25 U/L (14-36); BLOOD UREA NITROGEN 3 mg/dL (7-21); CALCIUM 8.8 mg/dL (8.4-10.5); GFR NON-AFRICAN AMERICAN 49
[2018-04-15] MEDS: Enoxaparin 40 mg Syringe SC SCH (10:26)
[2018-04-15] MEDS: levETIRAcetam 500mg IVPB 500 MG/100 ML BAG IVPB SCH (10:27)
[2018-04-15] MEDS ORDERED: Iohexol 350 MG/100 ML VIAL ONE (10:52)
--- NOTE | 2018-04-15 12:04 | CP.PCM.PN ---
<Omkar Zarate - Last Filed: 04/15/18 15:07> Subjective - Date & Time of Evaluation Date of Evaluation: 04/15/18 Time of Evaluation: 12:04 - Subjective Subjective: PGY-1 Neurology Progress note for Dr. Riddle Patient seen and examined at bedside. No acute events overnight. Patient has no complaints at this time. Objective - Vital Signs/Intake and Output Vital Signs (last 24 hours): Temp Pulse Resp BP Pulse Ox 97 F L 111 H 20 145/88 99 04/15/18 05:59 04/15/18 05:59 04/15/18 05:59 04/15/18 05:59 04/15/18 05:59 Intake and Output: 04/15/18 04/15/18 06:59 18:59 Intake Total 520 Balance 520 - Medications Medications: Current Medications Aspirin (Ecotrin) 81 mg PO DAILY [facility] Last Admin: 04/15/18 10:27 Dose: 81 mg Atorvastatin Calcium (Lipitor) 40 mg PO DIN [facility] Last Admin: 04/14/18 17:45 Dose: 40 mg Enoxaparin Sodium (Lovenox) 40 mg SC DAILY [facility]; Protocol Last Admin: 04/15/18 10:26 Dose: 40 mg Levetiracetam (Keppra 500mg Ivpb) 500 mg in 100 mls @ 215 mls/hr IVPB Q12 [facility] Last Admin: 04/15/18 10:27 Dose: 215 mls/hr Ibuprofen (Motrin Tab) 600 mg PO Q6H PRN PRN Reason: Pain, moderate (4-7) Ondansetron HCl (Zofran Inj) 4 mg IVP Q4H PRN PRN Reason: Nausea/Vomiting Pantoprazole Sodium (Protonix Ec Tab) 40 mg PO 0600 [facility] Last Admin: 04/15/18 05:56 Dose: 40 mg - Labs Labs: 04/15/18 06:50 04/15/18 06:50 PT 11.9 SECONDS (9.4-12.5) 04/13/18 03:37 INR 1.07 04/13/18 03:37 APTT 29.1 Seconds (26.9-38.3) 04/13/18 03:37 - Constitutional Appears: Well, Non-toxic, No Acute Distress - Head Exam Head Exam: ATRAUMATIC, NORMAL INSPECTION - Eye Exam Eye Exam: EOMI, Normal appearance Pupil Exam: NORMAL ACCOMODATION, PERRL - ENT Exam ENT Exam: Mucous Membranes Moist - Neck Exam Neck Exam: Normal Inspection - Respiratory Exam Respiratory Exam: Clear to Ausculation Bilateral. absent: Rales, Rhonchi, Wheezes, Respiratory Distress - Cardiovascular Exam Cardiovascular Exam: REGULAR RHYTHM, +S1, +S2. absent: Murmur - GI/Abdominal Exam GI & Abdominal Exam: Soft, Normal Bowel Sounds. absent: Tenderness - Extremities Exam Extremities Exam: absent: Calf Tenderness, Pedal Edema - Neurological Exam Neurological Exam: Alert, Awake, CN II-XII Intact, Oriented x3 Additional comments: Neuro motor strength exam: Left Upper Extremity: 5, Right Upper Extremity: 5, Left Lower Extremity: 5, Right Lower Extremity: 5 Sensations intact. - Psychiatric Exam Psychiatric exam: Normal Affect, Normal Mood - Skin Skin Exam: Dry, Intact, Normal Color, Warm Assessment and Plan - Assessment and Plan (Free Text) Assessment: Patient is a 67 year old female with past medical history of seizures, multiple myeloma, HTN, anxiety, and GERD presenting with chief complaint of seizures. Plan: - Continue Keppra 500mg IV BID - Continue Aspirin 81mg daily, Lipitor 40mg daily - EEG: pending read - Echocardiogram: pending read - CTA of the head/neck: Unremarkable - Further recommendations as per Dr. Riddle Patient seen and case discussed with attending, Dr. Riddle. Omkar Zarate, PGY-1 <Ritesh Riddle - Last Filed: 04/15/18 23:33> Objective - Vital Signs/Intake and Output Vital Signs (last 24 hours): Temp Pulse Resp BP Pulse Ox 98.6 F 89 18 147/91 H 99 04/15/18 17:55 04/15/18 18:00 04/15/18 17:55 04/15/18 17:55 04/15/18 05:59 Intake and Output: 04/15/18 04/16/18 18:59 06:59 Intake Total 100 598 Balance 100 598 - Medications Medications: Current Medications Aspirin (Ecotrin) 81 mg PO DAILY [facility] Last Admin: 04/15/18 10:27 Dose: 81 mg Atorvastatin Calcium (Lipitor) 40 mg PO DIN [facility] Last Admin: 04/15/18 18:36 Dose: 40 mg Enoxaparin Sodium (Lovenox) 40 mg SC DAILY [facility]; Protocol Last Admin: 04/15/18 10:26 Dose: 40 mg Ibuprofen (Motrin Tab) 600 mg PO Q6H PRN PRN Reason: Pain, moderate (4-7) Levetiracetam (Keppra) 500 mg PO BID [facility] Last Admin: 04/15/18 18:36 Dose: 500 mg Ondansetron HCl (Zofran Inj) 4 mg IVP Q4H PRN PRN Reason: Nausea/Vomiting Pantoprazole Sodium (Protonix Ec Tab) 40 mg PO 0600 [facility] Last Admin: 04/15/18 05:56 Dose: 40 mg - Labs Labs: 04/15/18 06:50 04/15/18 06:50 PT 11.9 SECONDS (9.4-12.5) 04/13/18 03:37 INR 1.07 04/13/18 03:37 APTT 29.1 Seconds (26.9-38.3) 04/13/18 03:37 Assessment and Plan - Assessment and Plan (Free Text) Plan: Attending/Attestation - Attestation I have personally seen and examined this patient.: Yes I have fully participated in the care of the patient.: Yes I have reviewed all pertinent clinical information: Yes Notes (Text): Miss curry has a history of epilepsy that is controlled on keppra. We have started a stroke workup that is normal thus far. Dr Riddle
--- NOTE | 2018-04-15 12:58 | CT ---
Date of service: 04/15/2018 PROCEDURE: CT Angiography of the neck with contrast HISTORY: stroke evaluation COMPARISON: None. TECHNIQUE: Contiguous axial images of the neck were obtained from the level of the skull-base to the superior mediastinum in the arteriographic phase of enhancement. Coronal and sagittal reformats or also generated. IV contrast dose: 100 cc of Omni 350 Radiation dose: Total exam DLP = 471.97 mGy-cm. This CT exam was performed using one or more of the following dose reduction techniques: Automated exposure control, adjustment of the mA and/or kV according to patient size, and/or use of iterative reconstruction technique. FINDINGS: RIGHT CAROTID ARTERIES: Common Carotid Artery: Normal. Carotid Bifurcation: Normal. Internal Carotid Artery:Normal. External Carotid Artery (proximal branches): Normal. LEFT CAROTID ARTERIES: Common Carotid Artery: Normal. Carotid Bifurcation: Normal. Internal Carotid Artery:Normal. External Carotid Artery (proximal branches): Normal. VERTEBRAL ARTERIES: Right Vertebral Artery: Normal. Left Vertebral Artery: Normal. OTHER FINDINGS: Minimal aortic calcification IMPRESSION: Normal CT Angiography of the neck. CT Angiography of the Brain. HISTORY: stroke evaluation COMPARISON: None available. TECHNIQUE: CT angiography of the intracranial arteries was performed. Coronal and sagittal maximum intensity projection reformated images were generated. Radiation dose: Total exam DLP = 471.97 mGy-cm. This CT exam was performed using one or more of the following dose reduction techniques: Automated exposure control, adjustment of the mA and/or kV according to patient size, and/or use of iterative reconstruction technique. FINDINGS: INTERNAL CEREBRAL ARTERIES: Unremarkable. The skull base, petrous, cavernous and supraclinoid segments are bilaterally widely patent. ANTERIOR CEREBRAL ARTERIES: Unremarkable. A1 and A2 segments are widely patent. Smaller distal branches unremarkable, as visualized. MIDDLE CEREBRAL ARTERIES: Unremarkable. M1 and M2 segments are widely patent. Perisylvian branches grossly symmetric. POSTERIOR CIRCULATION: Basilar Artery: Unremarkable. Distal Vertebral Arteries: Unremarkable. Posterior Cerebral Arteries: Unremarkable. Posterior Inferior Cerebellar Arteries: Unremarkable. ANEURYSM/ VASCULAR MALFORMATIONS: None. OTHER FINDINGS: None. IMPRESSION: Unremarkable CT Angiography of the Brain.
--- NOTE | 2018-04-15 16:08 | CARD ---
APPROVED REPORT Date of service: 04/15/2018 EXAM: Two-dimensional and M-mode echocardiogram with Doppler and color Doppler. INDICATION LACUNAR INFARCT 2D DIMENSIONS Left Atrium (2D)3.1 (1.6-4.0cm)IVSd1.1 (0.7-1.1cm) LVDd3.9 (3.9-5.9cm)PWd1.0 (0.7-1.1cm) LVDs2.8 (2.5-4.0cm)FS (%) 26.8 % LVEF (%)53.0 (>50%) M-Mode DIMENSIONS Aortic Root2.10 (2.2-3.7cm)Aortic Cusp Exc.1.50 (1.5-2.0cm) Aortic Valve AoV Peak Evlisncw412.0cm/Tomer Peak GR.8mmHg Mitral Valve MV E Bjsegntx11.2cm/sMV A Ipkqhrol84.5cm/sE/A ratio0.8 TDI E/Lateral E'0.0E/Medial E'0.0 Tricuspid Valve TR Peak [id number]/sRAP [id number] Peak Gr.21mmHg [id number] LEFT VENTRICLE The left ventricle is normal size. There is normal left ventricular wall thickness. The left ventricular function is normal. The left ventricular ejection fraction is within the normal range. There is normal LV segmental wall motion. Transmitral Doppler flow pattern is Grade I-abnormal relaxation pattern. RIGHT VENTRICLE The right ventricle is normal size. There is normal right ventricular wall thickness. The right ventricular systolic function is normal. ATRIA The left atrium size is normal. The right atrium size is normal. AORTIC VALVE The aortic valve is thickened but opens well. There is mild aortic regurgitation. There is no aortic valvular stenosis. MITRAL VALVE The mitral valve is mildly thickened. Mitral regurgitation is mild. There is no mitral valve stenosis. TRICUSPID VALVE The tricuspid valve is normal in structure. There is no tricuspid valve regurgitation noted. PULMONIC VALVE The pulmonary valve is normal in structure. There is no pulmonic valvular regurgitation. GREAT VESSELS The aortic root is normal in size. The IVC is normal in size and collapses >50% with inspiration. PERICARDIAL EFFUSION There is no pericardial effusion. <Conclusion> There is normal left ventricular wall thickness. The left ventricular function is normal. The left ventricular ejection fraction is within the normal range. There is normal LV segmental wall motion. Transmitral Doppler flow pattern is Grade I-abnormal relaxation pattern. There is mild aortic regurgitation. Mitral regurgitation is mild.
--- NOTE | 2018-04-15 17:32 | CP.PCM.PN ---
<Abiel Alcantar - Last Filed: 04/15/18 17:16> Subjective - Date & Time of Evaluation Date of Evaluation: 04/15/18 Time of Evaluation: 08:00 - Subjective Subjective: Abiel Alcantar PGY1 Medicine Progress Note for Dr. Zimmerman Patient was seen and examined at bedside this morning. Vital signs are stable. Patient had episodes of confusion overnight. Denies seziure-like activity, cp, sob, abdominal pain, n/v/d. Patient was explained about the results of her brain MRI. A full 12 point ROS was conducted and unremarkable except as stated above. Objective - Vital Signs/Intake and Output Vital Signs (last 24 hours): Temp Pulse Resp BP Pulse Ox 97 F L 111 H 20 145/88 99 04/15/18 05:59 04/15/18 05:59 04/15/18 05:59 04/15/18 05:59 04/15/18 05:59 Intake and Output: 04/15/18 04/15/18 06:59 18:59 Intake Total 520 Balance 520 - Medications Medications: Current Medications Aspirin (Ecotrin) 81 mg PO DAILY [facility] Last Admin: 04/15/18 10:27 Dose: 81 mg Atorvastatin Calcium (Lipitor) 40 mg PO DIN [facility] Last Admin: 04/14/18 17:45 Dose: 40 mg Enoxaparin Sodium (Lovenox) 40 mg SC DAILY [facility]; Protocol Last Admin: 04/15/18 10:26 Dose: 40 mg Ibuprofen (Motrin Tab) 600 mg PO Q6H PRN PRN Reason: Pain, moderate (4-7) Levetiracetam (Keppra) 500 mg PO BID [facility] Ondansetron HCl (Zofran Inj) 4 mg IVP Q4H PRN PRN Reason: Nausea/Vomiting Pantoprazole Sodium (Protonix Ec Tab) 40 mg PO 0600 [facility] Last Admin: 04/15/18 05:56 Dose: 40 mg - Labs Labs: 04/15/18 06:50 04/15/18 06:50 PT 11.9 SECONDS (9.4-12.5) 04/13/18 03:37 INR 1.07 04/13/18 03:37 APTT 29.1 Seconds (26.9-38.3) 04/13/18 03:37 - Constitutional Appears: Non-toxic, No Acute Distress - Head Exam Head Exam: ATRAUMATIC, NORMOCEPHALIC - Eye Exam Eye Exam: EOMI, Normal appearance, PERRL - ENT Exam ENT Exam: Mucous Membranes Moist - Neck Exam Neck exam: Positive for: Normal Inspection - Respiratory Exam Respiratory Exam: Clear to Auscultation Bilateral, NORMAL BREATHING PATTERN. absent: Rales, Rhonchi, Wheezes, Respiratory Distress - Cardiovascular Exam Cardiovascular Exam: REGULAR RHYTHM, +S1, +S2. absent: Systolic Murmur - GI/Abdominal Exam GI & Abdominal Exam: Soft. absent: Distended, Firm, Guarding, Rebound, Rigid, Tenderness - Extremities Exam Extremities exam: Positive for: normal capillary refill, pedal pulses present - Neurological Exam Neurological exam: Alert, CN II-XII Intact, Oriented x3 - Psychiatric Exam Psychiatric exam: Normal Affect, Normal Mood - Skin Skin Exam: Dry, Intact, Normal Color, Warm Assessment and Plan - Assessment and Plan (Free Text) Assessment: Patient is a 67 year old female with past medical history of seizures, multiple myeloma, HTN, anxiety, GERD who presented to the ED for loss of consciousness. Patient admitted for seizures on telemetry. Neurology is on consult. Upon imaging, Brain MRI showed an acute small lacunar infarct at the right basal ganglia. Plan: Acute Small Lacunar Infarct at the R-Basal Ganglia - ASA 81mg - Lipitor 40mg PO qHS - Echo (04/15): EF 53%. Grade I-abnormal relaxation pattern. Mild AR and MR. - CTA Head/Neck (04/15): unremarkable - PT evaluated patient and recommended TCU for gait instability - Neurology is aware (Dr. Ramos). Recs appreciated. - Lipid panel showed LDL 130, Chol 243, Triglycerides 222 - speech/swallow - Brain MRI (04/13): small lacunar infarct at right basal ganglia, less than one cm. Seizures - f/u EEG results - c/w 500 mg Keppra q12 - As per neuro recs, d/w patient to avoid driving for 3 months and avoid swimming alone - Neurology on consult (Dr. Ramos). Recs appreciated. - c/w seizure precautions and neurochecks - HHD - Hx of multiple myeloma Hx HTN - normotensive PPX - Lovenox SC - Protonix PO Diet: HHD Dispo: Monitor patient on tele. Pending read of EEG study. PT recommended TCU. Case was discussed and reviewed with Attending Physician, Dr. Zimmerman <Cory Zimmerman - Last Filed: 04/15/18 17:53> Objective - Vital Signs/Intake and Output Vital Signs (last 24 hours): Temp Pulse Resp BP Pulse Ox 97 F L 111 H 20 145/88 99 04/15/18 05:59 04/15/18 05:59 04/15/18 05:59 04/15/18 05:59 04/15/18 05:59 Intake and Output: 04/15/18 04/15/18 06:59 18:59 Intake Total 520 Balance 520 - Medications Medications: Current Medications Aspirin (Ecotrin) 81 mg PO DAILY [facility] Last Admin: 04/15/18 10:27 Dose: 81 mg Atorvastatin Calcium (Lipitor) 40 mg PO DIN [facility] Last Admin: 04/14/18 17:45 Dose: 40 mg Enoxaparin Sodium (Lovenox) 40 mg SC DAILY [facility]; Protocol Last Admin: 04/15/18 10:26 Dose: 40 mg Ibuprofen (Motrin Tab) 600 mg PO Q6H PRN PRN Reason: Pain, moderate (4-7) Levetiracetam (Keppra) 500 mg PO BID [facility] Ondansetron HCl (Zofran Inj) 4 mg IVP Q4H PRN PRN Reason: Nausea/Vomiting Pantoprazole Sodium (Protonix Ec Tab) 40 mg PO 0600 [facility] Last Admin: 04/15/18 05:56 Dose: 40 mg - Labs Labs: 04/15/18 06:50 04/15/18 06:50 PT 11.9 SECONDS (9.4-12.5) 04/13/18 03:37 INR 1.07 04/13/18 03:37 APTT 29.1 Seconds (26.9-38.3) 04/13/18 03:37 Attending/Attestation - Attestation I have personally seen and examined this patient.: Yes I have fully participated in the care of the patient.: Yes I have reviewed all pertinent clinical information, including history, physical exam and plan: Yes Notes (Text): 04/15/18 17:44 attending note; Patient seen and examined with resident. Patient is alert and awake. denies any weakness. tolerating diet well. Denies any chest pain, shortness of breath. Denies any headache. Denies any nausea, vomiting. Patient is a 67-year-old female past medical history significant for seizures, multiple myeloma, hypertension, GERD, and anxiety that presented to the emergency room with seizures. 1. Seizure. currently patient is alert and awake. Seizure free. . Continue Keppra. Brain MRI showed there are no enhancing parenchymal nor extra-axial masses or collections seen to suggest metastases, no evidence of unusual meningeal enhancement; small curvilinear focus of restricted diffusion in the posterior patella that could represent a small subacute to chronic infarct; chronic white matter and basal nuclei ischemic changes; mild to moderate significant central volume loss which has progressed since prior exam; previously noted multiple small rounded lytic lesions (consistent with the patient's history of multiple myeloma) scattered throughout the inner table of the calvarium are less well seen on the study is compared to a high-resolution bone window on CT scan 04/12/2018. 2. Subacute to chronic lacunar infarct seen on MRI brain. Started on ASA and Lipitor. PT evaluation appreciated. TCU recommended. CTA head/neck is normal. echocardiogram showed normal eje. 3. Confusion. resolving. Continue aspirin and Lipitor. Continue Keppra. Continue supportive care. 4. Hypercholesterolemia. Started on Lipitor. 5. Multiple myeloma. Patient to follow up outpatient chemotherapy with oncologist Dr. Kinsey. 6. GI/DVT prophylaxis. Protonix/Lovenox. TCU evaluation requested. upon discharge patient will follow uph PMD Dr. Littlejohn. Case discussed with PMD in detail.
[2018-04-16 04:31] VITALS: O2SAT 97
[2018-04-16] MEDS: Pantoprazole 40 mg EC Tab PO SCH (07:04)
[2018-04-16 07:37] LABS: BASO # 0.06 K/mm3 (0.0-2.0); BASO % 0.8 % (0.0-3.0); EOS # 0.2 (0.0-0.7); LYMPH # 1.4 (1.2-3.4); LYMPH % 19.4 % (22.0-35.0); MEAN CORPUSCULAR HEMOGLOBIN 31.2 pg (25.0-35.0); MEAN CORPUSCULAR HGB CONC 31.8 g/dl (31.0-37.0); MEAN PLATELET VOLUME 9.3 fl (7.0-11.0); MONO # 0.9 (0.1-0.6); MONO % 13.1 % (1.0-6.0); RBC 3.53 10^6/uL (3.5-6.1); RED CELL DISTRIBUTION WIDTH 14.1 % (11.5-14.5); WHITE BLOOD COUNT 7.1 10^3/uL (4.5-11.0)
[2018-04-16 08:07] LABS: ALB/GLOB RATIO 0.8 (1.1-1.8); ALBUMIN 4.2 g/dL (3.0-4.8); ALT/SGPT < 6 U/L (7-56); AST/SGOT 26 U/L (14-36); BLOOD UREA NITROGEN 6 mg/dL (7-21); GFR NON-AFRICAN AMERICAN 45
[2018-04-16] MEDS: Enoxaparin 40 mg Syringe SC SCH (10:49)
--- NOTE | 2018-04-16 16:06 | CP.PCM.DIS ---
<Abiel Alcantar - Last Filed: 04/16/18 15:56> Provider - Provider Date of Admission: 04/13/18 04:29 Attending physician: Cory Zimmerman MD Primary care physician: Otf Littlejohn MD Consults: 04/13/18 05:13 Neurology Consult Routine Comment: Consulting Provider: Garrett Ramos Consulting Physician: Garrett Ramos Reason for Consult: seizures 04/13/18 18:16 Social Work Referral Routine Comment: DISCHARGE PLANNING Physician Instructions: Reason For Exam: EVALUATION 04/15/18 14:48 TCU [Evaluation for TRCU] Routine Comment: Physician Instructions: Reason For Exam: gait instability Time Spent in preparation of Discharge (in minutes): 35 Hospital Course - Lab Results Lab Results: Most Recent Lab Values WBC 7.1 10^3/uL (4.5-11.0) 04/16/18 07:20 RBC 3.53 10^6/uL (3.5-6.1) 04/16/18 07:20 Hgb 11.0 g/dL (12.0-16.0) L 04/16/18 07:20 Hct 34.6 % (36.0-48.0) L 04/16/18 07:20 MCV 98.0 fl (80.0-105.0) 04/16/18 07:20 MCH 31.2 pg (25.0-35.0) 04/16/18 07:20 MCHC 31.8 g/dl (31.0-37.0) 04/16/18 07:20 RDW 14.1 % (11.5-14.5) 04/16/18 07:20 Plt Count 369 10^3/uL (120.0-450.0) 04/16/18 07:20 MPV 9.3 fl (7.0-11.0) 04/16/18 07:20 Neut % (Auto) 63.7 % (50.0-68.0) 04/16/18 07:20 Lymph % (Auto) 19.4 % (22.0-35.0) L 04/16/18 07:20 Dickinson % (Auto) 13.1 % (1.0-6.0) H 04/16/18 07:20 Eos % (Auto) 3.0 % (1.5-5.0) 04/16/18 07:20 Baso % (Auto) 0.8 % (0.0-3.0) 04/16/18 07:20 Lymph # (Auto) 1.4 (1.2-3.4) 04/16/18 07:20 Dickinson # (Auto) 0.9 (0.1-0.6) H 04/16/18 07:20 Eos # (Auto) 0.2 (0.0-0.7) 04/16/18 07:20 Baso # (Auto) 0.06 K/mm3 (0.0-2.0) 04/16/18 07:20 Absolute Neuts (auto) 4.51 (1.4-6.5) 04/16/18 07:20 PT 11.9 SECONDS (9.4-12.5) 04/13/18 03:37 INR 1.07 04/13/18 03:37 APTT 29.1 Seconds (26.9-38.3) 04/13/18 03:37 Sodium 140 mmol/L (132-148) 04/16/18 07:20 Potassium 4.0 mmol/L (3.6-5.0) 04/16/18 07:20 Chloride 108 mmol/L (98-107) H 04/16/18 07:20 Carbon Dioxide 20 mmol/L (21-33) L 04/16/18 07:20 Anion Gap 16 (10-20) 04/16/18 07:20 BUN 6 mg/dL (7-21) L 04/16/18 07:20 Creatinine 1.2 mg/dl (0.7-1.2) 04/16/18 07:20 Est GFR ( Amer) 54 04/16/18 07:20 Est GFR (Non-Af Amer) 45 04/16/18 07:20 Random Glucose 81 mg/dL (70-110) 04/16/18 07:20 Hemoglobin A1c 5.3 % (4.2-6.5) 04/14/18 06:50 Calcium 9.0 mg/dL (8.4-10.5) 04/16/18 07:20 Phosphorus 4.6 mg/dL (2.5-4.5) H 04/16/18 07:20 Magnesium 1.8 mg/dL (1.7-2.2) 04/16/18 07:20 Total Bilirubin 0.6 mg/dL (0.2-1.3) 04/16/18 07:20 AST 26 U/L (14-36) 04/16/18 07:20 ALT < 6 U/L (7-56) L 04/16/18 07:20 Alkaline Phosphatase 83 U/L (38-126) 04/16/18 07:20 Lactate Dehydrogenase 479 U/L (333-699) 04/13/18 03:37 Total Creatine Kinase 441 U/L (35-230) H 04/13/18 03:37 CK-MB (CK-2) 2.2 ng/mL (0.0-3.6) 04/13/18 03:37 CK-MB (CK-2) % Cancelled 04/13/18 03:37 Troponin I < 0.01 ng/mL 04/13/18 03:37 Total Protein 9.3 g/dL (5.8-8.3) H 04/16/18 07:20 Albumin 4.2 g/dL (3.0-4.8) 04/16/18 07:20 Globulin 5.1 gm/dL 04/16/18 07:20 Albumin/Globulin Ratio 0.8 (1.1-1.8) L 04/16/18 07:20 Triglycerides 222 mg/dL (35-160) H 04/14/18 06:50 Cholesterol 243 mg/dL (130-200) H 04/14/18 06:50 LDL Cholesterol Direct 130 mg/dL (0-129) H 04/14/18 06:50 HDL Cholesterol 32 mg/dL (29-60) 04/14/18 06:50 Vitamin B12 705 pg/mL (239-931) 04/14/18 06:50 25-OH Vitamin D Total < 12.8 NG/ML (30.0-100.0) L 04/15/18 06:50 Folate 7.6 ng/mL 04/14/18 06:50 TSH 3rd Generation 4.41 mIU/mL (0.46-4.68) 04/15/18 06:50 Urine Color Light yellow (YELLOW) 04/13/18 05:20 Urine Appearance Clear (CLEAR) 04/13/18 05:20 Urine pH 6.0 (4.7-8.0) 04/13/18 05:20 Ur Specific Ostrander 1.025 (1.005-1.035) 04/13/18 05:20 Urine Protein Trace mg/dL (<30 mg/dL) H 04/13/18 05:20 Urine Glucose (UA) Negative mg/dL (NEGATIVE) 04/13/18 05:20 Urine Ketones 15 mg/dL (NEGATIVE) H 04/13/18 05:20 Urine Blood Small (NEGATIVE) H 04/13/18 05:20 Urine Nitrate Negative (NEGATIVE) 04/13/18 05:20 Urine Bilirubin Negative (NEGATIVE) 04/13/18 05:20 Urine Urobilinogen 0.2 E.U./dL (<1 E.U./dL) 04/13/18 05:20 Ur Leukocyte Esterase Negative Fely/uL (NEGATIVE) 04/13/18 05:20 Urine RBC 0 - 2 /hpf (0-2) 04/13/18 05:20 Urine WBC None /hpf (0-6) 04/13/18 05:20 Ur Epithelial Cells 0 - 2 /hpf (0-5) 04/13/18 05:20 Urine Opiates Screen Negative (NEGATIVE) 04/14/18 23:00 Urine Methadone Screen Negative (NEGATIVE) 04/14/18 23:00 Ur Barbiturates Screen Negative (NEGATIVE) 04/14/18 23:00 Ur Phencyclidine Scrn Negative (NEGATIVE) 04/14/18 23:00 Ur Amphetamines Screen Negative (NEGATIVE) 04/14/18 23:00 U Benzodiazepines Scrn Negative (NEGATIVE) 04/14/18 23:00 U Oth Cocaine Metabols Negative (NEGATIVE) 04/14/18 23:00 U Cannabinoids Screen Negative (NEGATIVE) 04/14/18 23:00 - Hospital Course Hospital Course: Abiel Alcantar, PGY1 Discharge Summary for Dr. Zimmerman Patient is a 67 year old female with past medical history of seizures, multiple myeloma, HTN, GERD, anxiety presenting with chief complaint of seizure like activity. She was noted to be briefly unresponsive with her arms clenched. Medical team evaluated patient. Neurology was placed on board. Recommendations were appreciated. Patient was admitted to telemetry for seizures. She was placed on seizure precautions and started on keppra. Brain MRI and EEG was also ordered. During hospital course, patient's Brain MRI showed acute small lacunar infarct at the right basal ganglia, less than one cm in size. Neurology was made aware and patient also verbalized understanding. Patient started on aspirin and lipitor. CTA Head/Neck also done and was unremarkable. PT was also on board. She had no difficulty with speech and swallow. Patient did not have any focal neuro deficits or signs of extremity weakness or decreased sensation. However, upon evaluation by PT the recommendation was for TCU due to gait instability. Patient is stable for transfer to TCU. Discharge Exam - Head Exam Head Exam: ATRAUMATIC, NORMAL INSPECTION - Eye Exam Eye Exam: EOMI, Normal appearance - Respiratory Exam Respiratory Exam: Clear to PA & Lateral. absent: Accessory Muscle Use, Chest Wall Tenderness, Rales, Rhonchi, Wheezes - Cardiovascular Exam Cardiovascular Exam: RRR, +S1, +S2 - GI/Abdominal Exam GI & Abdominal Exam: Normal Bowel Sounds - Extremities Exam Extremities exam: full ROM, normal capillary refill, normal inspection, pedal pulses present - Neurological Exam Neurological exam: Alert, CN II-XII Intact, Oriented x3, Reflexes Normal - Psychiatric Exam Psychiatric exam: Normal Affect, Normal Mood - Skin Skin Exam: Dry, Intact, Normal Color, Warm Discharge Plan - Follow Up Plan Condition: STABLE Disposition: REHAB FACILITY/REHAB UNIT Instructions: Stroke (DC), Seizures, Adult (DC), Lowering the Risk of Having An other Stroke Additional Instructions: 1. You will be going to TCU for rehabilitation. 2. You will continue all your medications that your were taking in the hospital. Referrals: Otf Littlejohn MD [Primary Care Provider] - <Cory Zimmerman - Last Filed: 04/16/18 16:16> Provider - Provider Date of Admission: 04/13/18 04:29 Attending physician: Cory Zimmerman MD Primary care physician: Otf Littlejohn MD Consults: 04/13/18 05:13 Neurology Consult Routine Comment: Consulting Provider: Garrett Ramos Consulting Physician: Garrett Ramos Reason for Consult: seizures 04/13/18 18:16 Social Work Referral Routine Comment: DISCHARGE PLANNING Physician Instructions: Reason For Exam: EVALUATION 04/15/18 14:48 TCU [Evaluation for TRCU] Routine Comment: Physician Instructions: Reason For Exam: gait instability Hospital Course - Lab Results Lab Results: Most Recent Lab Values WBC 7.1 10^3/uL (4.5-11.0) 04/16/18 07:20 RBC 3.53 10^6/uL (3.5-6.1) 04/16/18 07:20 Hgb 11.0 g/dL (12.0-16.0) L 04/16/18 07:20 Hct 34.6 % (36.0-48.0) L 04/16/18 07:20 MCV 98.0 fl (80.0-105.0) 04/16/18 07:20 MCH 31.2 pg (25.0-35.0) 04/16/18 07:20 MCHC 31.8 g/dl (31.0-37.0) 04/16/18 07:20 RDW 14.1 % (11.5-14.5) 04/16/18 07:20 Plt Count 369 10^3/uL (120.0-450.0) 04/16/18 07:20 MPV 9.3 fl (7.0-11.0) 04/16/18 07:20 Neut % (Auto) 63.7 % (50.0-68.0) 04/16/18 07:20 Lymph % (Auto) 19.4 % (22.0-35.0) L 04/16/18 07:20 Dickinson % (Auto) 13.1 % (1.0-6.0) H 04/16/18 07:20 Eos % (Auto) 3.0 % (1.5-5.0) 04/16/18 07:20 Baso % (Auto) 0.8 % (0.0-3.0) 04/16/18 07:20 Lymph # (Auto) 1.4 (1.2-3.4) 04/16/18 07:20 Dickinson # (Auto) 0.9 (0.1-0.6) H 04/16/18 07:20 Eos # (Auto) 0.2 (0.0-0.7) 04/16/18 07:20 Baso # (Auto) 0.06 K/mm3 (0.0-2.0) 04/16/18 07:20 Absolute Neuts (auto) 4.51 (1.4-6.5) 04/16/18 07:20 PT 11.9 SECONDS (9.4-12.5) 04/13/18 03:37 INR 1.07 04/13/18 03:37 APTT 29.1 Seconds (26.9-38.3) 04/13/18 03:37 Sodium 140 mmol/L (132-148) 04/16/18 07:20 Potassium 4.0 mmol/L (3.6-5.0) 04/16/18 07:20 Chloride 108 mmol/L (98-107) H 04/16/18 07:20 Carbon Dioxide 20 mmol/L (21-33) L 04/16/18 07:20 Anion Gap 16 (10-20) 04/16/18 07:20 BUN 6 mg/dL (7-21) L 04/16/18 07:20 Creatinine 1.2 mg/dl (0.7-1.2) 04/16/18 07:20 Est GFR ( Amer) 54 04/16/18 07:20 Est GFR (Non-Af Amer) 45 04/16/18 07:20 Random Glucose 81 mg/dL (70-110) 04/16/18 07:20 Hemoglobin A1c 5.3 % (4.2-6.5) 04/14/18 06:50 Calcium 9.0 mg/dL (8.4-10.5) 04/16/18 07:20 Phosphorus 4.6 mg/dL (2.5-4.5) H 04/16/18 07:20 Magnesium 1.8 mg/dL (1.7-2.2) 04/16/18 07:20 Total Bilirubin 0.6 mg/dL (0.2-1.3) 04/16/18 07:20 AST 26 U/L (14-36) 04/16/18 07:20 ALT < 6 U/L (7-56) L 04/16/18 07:20 Alkaline Phosphatase 83 U/L (38-126) 04/16/18 07:20 Lactate Dehydrogenase 479 U/L (333-699) 04/13/18 03:37 Total Creatine Kinase 441 U/L (35-230) H 04/13/18 03:37 CK-MB (CK-2) 2.2 ng/mL (0.0-3.6) 04/13/18 03:37 CK-MB (CK-2) % Cancelled 04/13/18 03:37 Troponin I < 0.01 ng/mL 04/13/18 03:37 Total Protein 9.3 g/dL (5.8-8.3) H 04/16/18 07:20 Albumin 4.2 g/dL (3.0-4.8) 04/16/18 07:20 Globulin 5.1 gm/dL 04/16/18 07:20 Albumin/Globulin Ratio 0.8 (1.1-1.8) L 04/16/18 07:20 Triglycerides 222 mg/dL (35-160) H 04/14/18 06:50 Cholesterol 243 mg/dL (130-200) H 04/14/18 06:50 LDL Cholesterol Direct 130 mg/dL (0-129) H 04/14/18 06:50 HDL Cholesterol 32 mg/dL (29-60) 04/14/18 06:50 Vitamin B12 705 pg/mL (239-931) 04/14/18 06:50 25-OH Vitamin D Total < 12.8 NG/ML (30.0-100.0) L 04/15/18 06:50 Folate 7.6 ng/mL 04/14/18 06:50 TSH 3rd Generation 4.41 mIU/mL (0.46-4.68) 04/15/18 06:50 Urine Color Light yellow (YELLOW) 04/13/18 05:20 Urine Appearance Clear (CLEAR) 04/13/18 05:20 Urine pH 6.0 (4.7-8.0) 04/13/18 05:20 Ur Specific [place]ander 1.025 (1.005-1.035) 04/13/18 05:20 Urine Protein Trace mg/dL (<30 mg/dL) H 04/13/18 05:20 Urine Glucose (UA) Negative mg/dL (NEGATIVE) 04/13/18 05:20 Urine Ketones 15 mg/dL (NEGATIVE) H 04/13/18 05:20 Urine Blood Small (NEGATIVE) H 04/13/18 05:20 Urine Nitrate Negative (NEGATIVE) 04/13/18 05:20 Urine Bilirubin Negative (NEGATIVE) 04/13/18 05:20 Urine Urobilinogen 0.2 E.U./dL (<1 E.U./dL) 04/13/18 05:20 Ur Leukocyte Esterase Negative Fely/uL (NEGATIVE) 04/13/18 05:20 Urine RBC 0 - 2 /hpf (0-2) 04/13/18 05:20 Urine WBC None /hpf (0-6) 04/13/18 05:20 Ur Epithelial Cells 0 - 2 /hpf (0-5) 04/13/18 05:20 Urine Opiates Screen Negative (NEGATIVE) 04/14/18 23:00 Urine Methadone Screen Negative (NEGATIVE) 04/14/18 23:00 Ur Barbiturates Screen Negative (NEGATIVE) 04/14/18 23:00 Ur Phencyclidine Scrn Negative (NEGATIVE) 04/14/18 23:00 Ur Amphetamines Screen Negative (NEGATIVE) 04/14/18 23:00 U Benzodiazepines Scrn Negative (NEGATIVE) 04/14/18 23:00 U Oth Cocaine Metabols Negative (NEGATIVE) 04/14/18 23:00 U Cannabinoids Screen Negative (NEGATIVE) 04/14/18 23:00 Attending/Attestation - Attestation I have personally seen and examined this patient.: Yes I have fully participated in the care of the patient.: Yes I have reviewed all pertinent clinical information, including history, physical exam and plan: Yes Notes (Text): 04/16/18 16:14 attending note; Patient seen and examined with resident. Patient is alert and awake. tolerating diet well. Denies any chest pain, shortness of breath. Denies any headache. Denies any nausea, vomiting. Patient is a 67-year-old female past medical history significant for seizures, multiple myeloma, hypertension, GERD, and anxiety that presented to the emergency room with seizures. 1. Seizure. currently patient is alert and awake. Seizure free. Continue Keppra. Brain MRI showed there are no enhancing parenchymal nor extra-axial masses or collections seen to suggest metastases, no evidence of unusual meningeal enhancement; small curvilinear focus of restricted diffusion in the posterior patella that could represent a small subacute to chronic infarct; chronic white matter and basal nuclei ischemic changes; mild to moderate significant central volume loss which has progressed since prior exam; previously noted multiple small rounded lytic lesions (consistent with the patient's history of multiple myeloma) scattered throughout the inner table of the calvarium are less well seen on the study is compared to a high-resolution bone window on CT scan 04/12/2018. 2. Subacute to chronic lacunar infarct seen on MRI brain. Started on ASA and Lipitor. PT evaluation appreciated. TCU recommended. CTA head/neck is normal. echocardiogram showed normal ejection fraction. 3. Confusion. resolving. Continue aspirin and Lipitor. Continue Keppra. Continue supportive care. 4. Hypercholesterolemia. Started on Lipitor. 5. Multiple myeloma. Patient to follow up outpatient chemotherapy with oncologist Dr. Kinsey. 6. GI/DVT prophylaxis. Protonix/Lovenox. Patient was seen and examined with PMD Dr. Littlejohn. Transfer to TCU today. case discussed with significant other in detail by the bedside. upon discharge patient will follow uph PMD Dr. Littlejohn.
[2018-04-16 18:42] VITALS: RESP 20
--- NOTE | 2018-04-16 21:07 | CP.PCM.PN ---
Subjective - Date & Time of Evaluation Date of Evaluation: 04/16/18 Time of Evaluation: 15:00 - Subjective Subjective: Patient doing well, no further seizures, no headache no other complaints. EEG is normal. ROS: no headache, no nausea, no vomiting, no numbness, no tingling. ON exam: AAOX3. PERRL. Cn 2-12 normal. EOMI. Motor, sensory normal. gait normal. +2 dtr ul and ll bl. Objective - Vital Signs/Intake and Output Vital Signs (last 24 hours): Temp Pulse Resp BP Pulse Ox 97.8 F 95 H 20 149/97 H 97 04/16/18 18:00 04/16/18 18:00 04/16/18 18:00 04/16/18 18:00 04/16/18 00:01 Intake and Output: 04/16/18 04/17/18 18:59 06:59 Intake Total 900 Output Total 3 Balance 897 - Medications Medications: Current Medications Aspirin (Ecotrin) 81 mg PO DAILY [facility] Last Admin: 04/16/18 10:49 Dose: 81 mg Atorvastatin Calcium (Lipitor) 40 mg PO DIN [facility] Last Admin: 04/16/18 18:07 Dose: 40 mg Enoxaparin Sodium (Lovenox) 40 mg SC DAILY [facility]; Protocol Last Admin: 04/16/18 10:49 Dose: 40 mg Ibuprofen (Motrin Tab) 600 mg PO Q6H PRN PRN Reason: Pain, moderate (4-7) Levetiracetam (Keppra) 500 mg PO BID [facility] Last Admin: 04/16/18 18:07 Dose: 500 mg Ondansetron HCl (Zofran Inj) 4 mg IVP Q4H PRN PRN Reason: Nausea/Vomiting Pantoprazole Sodium (Protonix Ec Tab) 40 mg PO 0600 [facility] Last Admin: 04/16/18 07:04 Dose: 40 mg - Labs Labs: 04/16/18 07:20 04/16/18 07:20 PT 11.9 SECONDS (9.4-12.5) 04/13/18 03:37 INR 1.07 04/13/18 03:37 APTT 29.1 Seconds (26.9-38.3) 04/13/18 03:37 Assessment and Plan - Assessment and Plan (Free Text) Assessment: 67 yr old woman who had a seizure at home, now seizure free, and on anti epileptic medication. Plan: 1. continue AED. 2. Cleared from neurological point of view. Thank you DR. Riddle
[2018-04-17] MEDS: Pantoprazole 40 mg EC Tab PO SCH (06:55)
[2018-04-17 07:36] LABS: BASO # 0.06 K/mm3 (0.0-2.0); BASO % 0.8 % (0.0-3.0); EOS # 0.2 (0.0-0.7); EOS % 3.2 % (1.5-5.0); LYMPH # 1.4 (1.2-3.4); LYMPH % 19.5 % (22.0-35.0); MEAN CELL VOLUME 98.6 fl (80.0-105.0); MEAN CORPUSCULAR HEMOGLOBIN 31.2 pg (25.0-35.0); MEAN CORPUSCULAR HGB CONC 31.6 g/dl (31.0-37.0); MEAN PLATELET VOLUME 9.6 fl (7.0-11.0); MONO # 1.1 (0.1-0.6); MONO % 14.8 % (1.0-6.0); RBC 3.53 10^6/uL (3.5-6.1); RED CELL DISTRIBUTION WIDTH 14.3 % (11.5-14.5); WHITE BLOOD COUNT 7.2 10^3/uL (4.5-11.0)
[2018-04-17 09:43] LABS: ALB/GLOB RATIO 0.8 (1.1-1.8); ALBUMIN 4.3 g/dL (3.0-4.8); ALT/SGPT < 6 U/L (7-56); AST/SGOT 28 U/L (14-36); BLOOD UREA NITROGEN 8 mg/dL (7-21); CALCIUM 9.2 mg/dL (8.4-10.5); GFR NON-AFRICAN AMERICAN 45
[2018-04-17] MEDS: Enoxaparin 40 mg Syringe SC SCH (10:38)
--- NOTE | 2018-04-17 13:23 | CP.PCM.HP ---
History of Present Illness - History of Present Illness History of Present Illness: Abiel Alcantar, PGY1 H&P for Dr. Zimmerman cc: seizures Patient is a 67 year old female with past medical history of seizures, multiple myeloma, HTN, GERD, anxiety presenting with chief complaint of seizure like activity. She was noted to be briefly unresponsive with her arms clenched. Medical team evaluated patient. Neurology was placed on board. Recommendations were appreciated. Patient was admitted to telemetry for seizures. She was placed on seizure precautions and started on keppra. Brain MRI and EEG was also ordered. During hospital course, patient's Brain MRI showed subacute-chronic small lacunar infarct at the right basal ganglia, less than one cm in size. Neurology was made aware and patient also verbalized understanding. Patient started on aspirin and lipitor. CTA Head/Neck also done and was unremarkable. PT was also on board. She had no difficulty with speech and swallow. Patient did not have any focal neuro deficits or signs of extremity weakness or decreased sensation. However, upon evaluation by PT the recommendation was for TCU due to gait instability. Patient is transferred to TCU. Currently patient denies cp, sob, n/v/d, fever, chills, headache. PMD: Dr. Littlejohn PMH: seizures, multiple myeloma, HTN, anxiety, GERD PSH: denies SHx: denies alcohol, tobacco, illicit drug use FHx: mother (breast cancer) Allergies: NKDA PMD: Dr. Littlejohn Casting Agent: Dr. Kinsey Present on Admission - Present on Admission Any Indicators Present on Admission: No Review of Systems - Review of Systems All systems: reviewed and no additional remarkable complaints except (as per HPI) Past Patient History - Infectious Disease Hx of Infectious Diseases: None - Past Social History Smoking Status: Never Smoked - CARDIAC Hx Cardiac Disorders: Yes - PULMONARY Hx Respiratory Disorders: Yes Hx Sleep Apnea: Yes - NEUROLOGICAL Hx Neurological Disorder: Yes Hx Seizures: Yes - HEENT Hx HEENT Problems: Yes (FAR SIGHTED NO GLASSES.) - RENAL Hx Chronic Kidney Disease: No - ENDOCRINE/METABOLIC Hx Endocrine Disorders: No - HEMATOLOGICAL/ONCOLOGICAL Hx Blood Disorders: Yes Hx Anemia: Yes (BLOOD TRANSFUSION) Hx Cancer: Yes (Multiple myeloma) Hx Chemotherapy: Yes - INTEGUMENTARY Hx Dermatological Problems: No - MUSCULOSKELETAL/RHEUMATOLOGICAL Hx Musculoskeletal Disorders: No Hx Falls: Yes - GASTROINTESTINAL Hx Gastrointestinal Disorders: Yes Hx Gastroesophageal Reflux: Yes - GENITOURINARY/GYNECOLOGICAL Hx Genitourinary Disorders: Yes (L BREAST CYST REMOVED.) - PSYCHIATRIC Hx Psychophysiologic Disorder: Yes Hx Anxiety: Yes Hx Emotional Abuse: No Hx Physical Abuse: No Hx Substance Use: No - SURGICAL HISTORY Hx Surgeries: Yes (LEFT BREAST CYST REMOVED) - ANESTHESIA Hx Anesthesia Reactions: No Hx Malignant Hyperthermia: No Meds Home Medications: Home Medication List Medication Instructions Recorded Confirmed Type Aspirin [Ecotrin] 81 mg PO DAILY tabec 04/16/18 Rx Atorvastatin [Lipitor] 40 mg PO DIN tab 04/16/18 Rx levETIRAcetam [Keppra] 500 mg PO BID tab 04/16/18 Rx Allergies/Adverse Reactions: Allergies Allergy/AdvReac Type Severity Reaction Status Date / Time No Known Allergies Allergy Verified 04/13/18 15:42 Physical Exam - Constitutional Appears: No Acute Distress - Head Exam Head Exam: ATRAUMATIC, NORMAL INSPECTION, NORMOCEPHALIC - Eye Exam Eye Exam: EOMI, Normal appearance - ENT Exam ENT Exam: Mucous Membranes Moist - Respiratory Exam Respiratory Exam: absent: Accessory Muscle Use, Chest Wall Tenderness, Rales, Rhonchi, Wheezes - Cardiovascular Exam Cardiovascular Exam: REGULAR RHYTHM, +S1, +S2 - GI/Abdominal Exam GI & Abdominal Exam: Normal Bowel Sounds, Soft. absent: Guarding, Rebound, Rigid, Tenderness - Extremities Exam Extremities exam: Positive for: normal capillary refill, normal inspection, pedal pulses present - Neurological Exam Neurological exam: Alert, CN II-XII Intact, Normal Gait, Oriented x3, Reflexes Normal - Psychiatric Exam Psychiatric exam: Normal Affect, Normal Mood - Skin Skin Exam: Dry, Intact, Normal Color, Warm Results - Vital Signs Recent Vital Signs: Last Vital Signs Temp 98.4 F 04/17/18 12:00 Pulse 111 H 04/17/18 12:00 Resp 20 04/17/18 12:00 BP 139/93 H 04/17/18 12:00 Pulse Ox 97 04/16/18 00:01 - Labs Result Diagrams: 04/17/18 07:25 04/17/18 07:25 Labs: Laboratory Results - last 24 hr 04/17/18 04/17/18 07:25 07:25 WBC 7.2 RBC 3.53 Hgb 11.0 L Hct 34.8 L MCV 98.6 MCH 31.2 MCHC 31.6 RDW 14.3 Plt Count 395 MPV 9.6 Neut % (Auto) 61.7 Lymph % (Auto) 19.5 L [place] % (Auto) 14.8 H Eos % (Auto) 3.2 Baso % (Auto) 0.8 Lymph # (Auto) 1.4 [place] # (Auto) 1.1 H Eos # (Auto) 0.2 Baso # (Auto) 0.06 Absolute Neuts (auto) 4.43 Sodium 140 Potassium 4.1 Chloride 106 Carbon Dioxide 22 Anion Gap 16 BUN 8 Creatinine 1.2 Est GFR ( Amer) 54 Est GFR (Non-Af Amer) 45 Random Glucose 88 Calcium 9.2 Phosphorus 5.0 H Magnesium 1.9 Total Bilirubin 0.6 AST 28 ALT < 6 L Alkaline Phosphatase 88 Total Protein 9.5 H Albumin 4.3 Globulin 5.2 Albumin/Globulin Ratio 0.8 L Assessment & Plan - Assessment and Plan (Free Text) Assessment: Patient is a 67 year old female with past medical history of seizures, multiple myeloma, HTN, anxiety, GERD who presented to the ED for loss of consciousness. Patient admitted for seizures on telemetry. Neurology is on consult. Upon im aging, Brain MRI showed a subacute-chronic small lacunar infarct at the right basal ganglia. Plan: Subacute-chronic Small Lacunar Infarct at the R-Basal Ganglia - TCU for rehabilitation as per PT recs (gait instability) - c/w ASA 81mg - c/w Lipitor 40mg PO qHS - CTA Head/Neck (04/15): unremarkable - Neurology is aware (Dr. Ramos). Recs appreciated. - Brain MRI (04/13): small lacunar infarct at right basal ganglia, less than one cm. Seizures - c/w 500 mg Keppra q12 - As per neuro recs, d/w patient to avoid driving for 3 months and avoid swimming alone - Neurology on consult (Dr. Ramos). Recs appreciated. - c/w seizure precautions and neurochecks - HHD - Hx of multiple myeloma Hx HTN - normotensive PPX - Lovenox SC - Protonix PO Diet: HHD Dispo: Monitor patient in the TCU. Case was discussed and reviewed with Attending Physician, Dr. Zimmerman
--- NOTE | 2018-04-17 15:53 | CP.PCM.DIS ---
<Abiel Alcantar - Last Filed: 04/17/18 15:48> Provider - Provider Date of Admission: 04/13/18 04:29 Attending physician: Cory Zimmerman MD Primary care physician: Otf Littlejohn MD Consults: 04/13/18 05:13 Neurology Consult Routine Comment: Consulting Provider: Garrett Ramos Consulting Physician: Garrett Ramos Reason for Consult: seizures 04/13/18 18:16 Social Work Referral Routine Comment: DISCHARGE PLANNING Physician Instructions: Reason For Exam: EVALUATION 04/15/18 14:48 TCU [Evaluation for TRCU] Routine Comment: Physician Instructions: Reason For Exam: gait instability Time Spent in preparation of Discharge (in minutes): 35 Hospital Course - Lab Results Lab Results: Most Recent Lab Values WBC 7.2 10^3/uL (4.5-11.0) 04/17/18 07:25 RBC 3.53 10^6/uL (3.5-6.1) 04/17/18 07:25 Hgb 11.0 g/dL (12.0-16.0) L 04/17/18 07:25 Hct 34.8 % (36.0-48.0) L 04/17/18 07:25 MCV 98.6 fl (80.0-105.0) 04/17/18 07:25 MCH 31.2 pg (25.0-35.0) 04/17/18 07:25 MCHC 31.6 g/dl (31.0-37.0) 04/17/18 07:25 RDW 14.3 % (11.5-14.5) 04/17/18 07:25 Plt Count 395 10^3/uL (120.0-450.0) 04/17/18 07:25 MPV 9.6 fl (7.0-11.0) 04/17/18 07:25 Neut % (Auto) 61.7 % (50.0-68.0) 04/17/18 07:25 Lymph % (Auto) 19.5 % (22.0-35.0) L 04/17/18 07:25 [place] % (Auto) 14.8 % (1.0-6.0) H 04/17/18 07:25 Eos % (Auto) 3.2 % (1.5-5.0) 04/17/18 07:25 Baso % (Auto) 0.8 % (0.0-3.0) 04/17/18 07:25 Lymph # (Auto) 1.4 (1.2-3.4) 04/17/18 07:25 [place] # (Auto) 1.1 (0.1-0.6) H 04/17/18 07:25 Eos # (Auto) 0.2 (0.0-0.7) 04/17/18 07:25 Baso # (Auto) 0.06 K/mm3 (0.0-2.0) 04/17/18 07:25 Absolute Neuts (auto) 4.43 (1.4-6.5) 04/17/18 07:25 PT 11.9 SECONDS (9.4-12.5) 04/13/18 03:37 INR 1.07 04/13/18 03:37 APTT 29.1 Seconds (26.9-38.3) 04/13/18 03:37 Sodium 140 mmol/L (132-148) 04/17/18 07:25 Potassium 4.1 mmol/L (3.6-5.0) 04/17/18 07:25 Chloride 106 mmol/L (98-107) 04/17/18 07:25 Carbon Dioxide 22 mmol/L (21-33) 04/17/18 07:25 Anion Gap 16 (10-20) 04/17/18 07:25 BUN 8 mg/dL (7-21) 04/17/18 07:25 Creatinine 1.2 mg/dl (0.7-1.2) 04/17/18 07:25 Est GFR ( Amer) 54 04/17/18 07:25 Est GFR (Non-Af Amer) 45 04/17/18 07:25 Random Glucose 88 mg/dL (70-110) 04/17/18 07:25 Hemoglobin A1c 5.3 % (4.2-6.5) 04/14/18 06:50 Calcium 9.2 mg/dL (8.4-10.5) 04/17/18 07:25 Phosphorus 5.0 mg/dL (2.5-4.5) H 04/17/18 07:25 Magnesium 1.9 mg/dL (1.7-2.2) 04/17/18 07:25 Total Bilirubin 0.6 mg/dL (0.2-1.3) 04/17/18 07:25 AST 28 U/L (14-36) 04/17/18 07:25 ALT < 6 U/L (7-56) L 04/17/18 07:25 Alkaline Phosphatase 88 U/L (38-126) 04/17/18 07:25 Lactate Dehydrogenase 479 U/L (333-699) 04/13/18 03:37 Total Creatine Kinase 441 U/L (35-230) H 04/13/18 03:37 CK-MB (CK-2) 2.2 ng/mL (0.0-3.6) 04/13/18 03:37 CK-MB (CK-2) % Cancelled 04/13/18 03:37 Troponin I < 0.01 ng/mL 04/13/18 03:37 Total Protein 9.5 g/dL (5.8-8.3) H 04/17/18 07:25 Albumin 4.3 g/dL (3.0-4.8) 04/17/18 07:25 Globulin 5.2 gm/dL 04/17/18 07:25 Albumin/Globulin Ratio 0.8 (1.1-1.8) L 04/17/18 07:25 Triglycerides 222 mg/dL (35-160) H 04/14/18 06:50 Cholesterol 243 mg/dL (130-200) H 04/14/18 06:50 LDL Cholesterol Direct 130 mg/dL (0-129) H 04/14/18 06:50 HDL Cholesterol 32 mg/dL (29-60) 04/14/18 06:50 Vitamin B12 705 pg/mL (239-931) 04/14/18 06:50 25-OH Vitamin D Total < 12.8 NG/ML (30.0-100.0) L 04/15/18 06:50 Folate 7.6 ng/mL 04/14/18 06:50 TSH 3rd Generation 4.41 mIU/mL (0.46-4.68) 04/15/18 06:50 Urine Color Light yellow (YELLOW) 04/13/18 05:20 Urine Appearance Clear (CLEAR) 04/13/18 05:20 Urine pH 6.0 (4.7-8.0) 04/13/18 05:20 Ur Specific [place] 1.025 (1.005-1.035) 04/13/18 05:20 Urine Protein Trace mg/dL (<30 mg/dL) H 04/13/18 05:20 Urine Glucose (UA) Negative mg/dL (NEGATIVE) 04/13/18 05:20 Urine Ketones 15 mg/dL (NEGATIVE) H 04/13/18 05:20 Urine Blood Small (NEGATIVE) H 04/13/18 05:20 Urine Nitrate Negative (NEGATIVE) 04/13/18 05:20 Urine Bilirubin Negative (NEGATIVE) 04/13/18 05:20 Urine Urobilinogen 0.2 E.U./dL (<1 E.U./dL) 04/13/18 05:20 Ur Leukocyte Esterase Negative Fely/uL (NEGATIVE) 04/13/18 05:20 Urine RBC 0 - 2 /hpf (0-2) 04/13/18 05:20 Urine WBC None /hpf (0-6) 04/13/18 05:20 Ur Epithelial Cells 0 - 2 /hpf (0-5) 04/13/18 05:20 Urine Opiates Screen Negative (NEGATIVE) 04/14/18 23:00 Urine Methadone Screen Negative (NEGATIVE) 04/14/18 23:00 Ur Barbiturates Screen Negative (NEGATIVE) 04/14/18 23:00 Ur Phencyclidine Scrn Negative (NEGATIVE) 04/14/18 23:00 Ur Amphetamines Screen Negative (NEGATIVE) 04/14/18 23:00 U Benzodiazepines Scrn Negative (NEGATIVE) 04/14/18 23:00 U Oth Cocaine Metabols Negative (NEGATIVE) 04/14/18 23:00 U Cannabinoids Screen Negative (NEGATIVE) 04/14/18 23:00 - Hospital Course Hospital Course: Abiel Alcantar, PGY1 Discharge Summary for Dr. Zimmerman Please refer to previous discharge summary dated on 04/16/18. Patient was unable to go to TCU yesterday because of bed availability. She will be going to TCU today. Her clinical status remains unchanged from yesterday. Vital signs are stable. No adverse overnight events. She was seen and examined this morning. Physical exam is also unchanged from yesterday. When bed is available, patient will be sent to TCU today. Discussed and reviewed with Attending Physician, Dr. Zimmerman Discharge Exam - Head Exam Head Exam: ATRAUMATIC, NORMAL INSPECTION, NORMOCEPHALIC - Eye Exam Eye Exam: Normal appearance Pupil Exam: NORMAL ACCOMODATION - ENT Exam ENT Exam: Normal Exam - Neck Exam Neck exam: Normal Inspection - Respiratory Exam Respiratory Exam: NORMAL BREATHING PATTERN. absent: Chest Wall Tenderness, Rhonchi, Wheezes, Respiratory Distress, Stridor - Cardiovascular Exam Cardiovascular Exam: RRR, +S1, +S2 - GI/Abdominal Exam GI & Abdominal Exam: Normal Bowel Sounds - Extremities Exam Extremities exam: normal inspection, pedal edema, pedal pulses present - Neurological Exam Neurological exam: Alert, CN II-XII Intact, Normal Gait, Oriented x3, Reflexes Normal - Psychiatric Exam Psychiatric exam: Normal Affect, Normal Mood - Skin Skin Exam: Dry, Intact, Normal Color, Warm Discharge Plan - Follow Up Plan Condition: STABLE Disposition: REHAB FACILITY/REHAB UNIT Instructions: Stroke (DC), Seizures, Adult (DC), Lowering the Risk of Having Another Stroke Additional Instructions: 1. You will be going to TCU for rehabilitation. 2. You will continue all your medications that your were taking in the hospital. Referrals: Otf Littlejohn MD [Primary Care Provider] - <Cory Zimmerman - Last Filed: 04/17/18 18:30> Provider - Provider Date of Admission: 04/13/18 04:29 Attending physician: Cory Zimmerman MD Primary care physician: Otf Littlejohn MD Consults: 04/13/18 05:13 Neurology Consult Routine Comment: Consulting Provider: Garrett Ramos Consulting Physician: Garrett Ramos Reason for Consult: seizures 04/13/18 18:16 Social Work Referral Routine Comment: DISCHARGE PLANNING Physician Instructions: Reason For Exam: EVALUATION 04/15/18 14:48 TCU [Evaluation for TRCU] Routine Comment: Physician Instructions: Reason For Exam: gait instability Hospital Course - Lab Results Lab Results: Most Recent Lab Values WBC 7.2 10^3/uL (4.5-11.0) 04/17/18 07:25 RBC 3.53 10^6/uL (3.5-6.1) 04/17/18 07:25 Hgb 11.0 g/dL (12.0-16.0) L 04/17/18 07:25 Hct 34.8 % (36.0-48.0) L 04/17/18 07:25 MCV 98.6 fl (80.0-105.0) 04/17/18 07:25 MCH 31.2 pg (25.0-35.0) 04/17/18 07:25 MCHC 31.6 g/dl (31.0-37.0) 04/17/18 07:25 RDW 14.3 % (11.5-14.5) 04/17/18 07:25 Plt Count 395 10^3/uL (120.0-450.0) 04/17/18 07:25 MPV 9.6 fl (7.0-11.0) 04/17/18 07:25 Neut % (Auto) 61.7 % (50.0-68.0) 04/17/18 07:25 Lymph % (Auto) 19.5 % (22.0-35.0) L 04/17/18 07:25 [place] % (Auto) 14.8 % (1.0-6.0) H 04/17/18 07:25 Eos % (Auto) 3.2 % (1.5-5.0) 04/17/18 07:25 Baso % (Auto) 0.8 % (0.0-3.0) 04/17/18 07:25 Lymph # (Auto) 1.4 (1.2-3.4) 04/17/18 07:25 [place] # (Auto) 1.1 (0.1-0.6) H 04/17/18 07:25 Eos # (Auto) 0.2 (0.0-0.7) 04/17/18 07:25 Baso # (Auto) 0.06 K/mm3 (0.0-2.0) 04/17/18 07:25 Absolute Neuts (auto) 4.43 (1.4-6.5) 04/17/18 07:25 PT 11.9 SECONDS (9.4-12.5) 04/13/18 03:37 INR 1.07 04/13/18 03:37 APTT 29.1 Seconds (26.9-38.3) 04/13/18 03:37 Sodium 140 mmol/L (132-148) 04/17/18 07:25 Potassium 4.1 mmol/L (3.6-5.0) 04/17/18 07:25 Chloride 106 mmol/L (98-107) 04/17/18 07:25 Carbon Dioxide 22 mmol/L (21-33) 04/17/18 07:25 Anion Gap 16 (10-20) 04/17/18 07:25 BUN 8 mg/dL (7-21) 04/17/18 07:25 Creatinine 1.2 mg/dl (0.7-1.2) 04/17/18 07:25 Est GFR ( Amer) 54 04/17/18 07:25 Est GFR (Non-Af Amer) 45 04/17/18 07:25 Random Glucose 88 mg/dL (70-110) 04/17/18 07:25 Hemoglobin A1c 5.3 % (4.2-6.5) 04/14/18 06:50 Calcium 9.2 mg/dL (8.4-10.5) 04/17/18 07:25 Phosphorus 5.0 mg/dL (2.5-4.5) H 04/17/18 07:25 Magnesium 1.9 mg/dL (1.7-2.2) 04/17/18 07:25 Total Bilirubin 0.6 mg/dL (0.2-1.3) 04/17/18 07:25 AST 28 U/L (14-36) 04/17/18 07:25 ALT < 6 U/L (7-56) L 04/17/18 07:25 Alkaline Phosphatase 88 U/L (38-126) 04/17/18 07:25 Lactate Dehydrogenase 479 U/L (333-699) 04/13/18 03:37 Total Creatine Kinase 441 U/L (35-230) H 04/13/18 03:37 CK-MB (CK-2) 2.2 ng/mL (0.0-3.6) 04/13/18 03:37 CK-MB (CK-2) % Cancelled 04/13/18 03:37 Troponin I < 0.01 ng/mL 04/13/18 03:37 Total Protein 9.5 g/dL (5.8-8.3) H 04/17/18 07:25 Albumin 4.3 g/dL (3.0-4.8) 04/17/18 07:25 Globulin 5.2 gm/dL 04/17/18 07:25 Albumin/Globulin Ratio 0.8 (1.1-1.8) L 04/17/18 07:25 Triglycerides 222 mg/dL (35-160) H 04/14/18 06:50 Cholesterol 243 mg/dL (130-200) H 04/14/18 06:50 LDL Cholesterol Direct 130 mg/dL (0-129) H 04/14/18 06:50 HDL Cholesterol 32 mg/dL (29-60) 04/14/18 06:50 Vitamin B12 705 pg/mL (239-931) 04/14/18 06:50 25-OH Vitamin D Total < 12.8 NG/ML (30.0-100.0) L 04/15/18 06:50 Folate 7.6 ng/mL 04/14/18 06:50 TSH 3rd Generation 4.41 mIU/mL (0.46-4.68) 04/15/18 06:50 Urine Color Light yellow (YELLOW) 04/13/18 05:20 Urine Appearance Clear (CLEAR) 04/13/18 05:20 Urine pH 6.0 (4.7-8.0) 04/13/18 05:20 Ur Specific [place] 1.025 (1.005-1.035) 04/13/18 05:20 Urine Protein Trace mg/dL (<30 mg/dL) H 04/13/18 05:20 Urine Glucose (UA) Negative mg/dL (NEGATIVE) 04/13/18 05:20 Urine Ketones 15 mg/dL (NEGATIVE) H 04/13/18 05:20 Urine Blood Small (NEGATIVE) H 04/13/18 05:20 Urine Nitrate Negative (NEGATIVE) 04/13/18 05:20 Urine Bilirubin Negative (NEGATIVE) 04/13/18 05:20 Urine Urobilinogen 0.2 E.U./dL (<1 E.U./dL) 04/13/18 05:20 Ur Leukocyte Esterase Negative Fely/uL (NEGATIVE) 04/13/18 05:20 Urine RBC 0 - 2 /hpf (0-2) 04/13/18 05:20 Urine WBC None /hpf (0-6) 04/13/18 05:20 Ur Epithelial Cells 0 - 2 /hpf (0-5) 04/13/18 05:20 Urine Opiates Screen Negative (NEGATIVE) 04/14/18 23:00 Urine Methadone Screen Negative (NEGATIVE) 04/14/18 23:00 Ur Barbiturates Screen Negative (NEGATIVE) 04/14/18 23:00 Ur Phencyclidine Scrn Negative (NEGATIVE) 04/14/18 23:00 Ur Amphetamines Screen Negative (NEGATIVE) 04/14/18 23:00 U Benzodiazepines Scrn Negative (NEGATIVE) 04/14/18 23:00 U Oth Cocaine Metabols Negative (NEGATIVE) 04/14/18 23:00 U Cannabinoids Screen Negative (NEGATIVE) 04/14/18 23:00 Attending/Attestation - Attestation I have personally seen and examined this patient.: Yes I have fully participated in the care of the patient.: Yes I have reviewed all pertinent clinical information, including history, physical exam and plan: Yes Notes (Text): 04/17/18 18:29 attending note; Patient seen and examined with resident. Patient is alert and awake. tolerating diet well. Denies any chest pain, shortness of breath. Denies any headache. Denies any nausea, vomiting. Patient is a 67-year-old female past medical history significant for seizures, multiple myeloma, hypertension, GERD, and anxiety that presented to the emergency room with seizures. 1. Seizure. currently patient is alert and awake. Seizure free. Continue Keppra. Brain MRI showed there are no enhancing parenchymal nor extra-axial masses or collections seen to suggest metastases, no evidence of unusual meningeal enhancement; small curvilinear focus of restricted diffusion in the posterior patella that could represent a small subacute to chronic infarct; chronic white matter and basal nuclei ischemic changes; mild to moderate significant central volume loss which has progressed since prior exam; previously noted multiple small rounded lytic lesions (consistent with the patient's history of multiple myeloma) scattered throughout the inner table of the calvarium are less well seen on the study is compared to a high-resolution bone window on CT scan 04/12/2018. 2. Subacute to chronic lacunar infarct seen on MRI brain. Started on ASA and Lipitor. PT evaluation appreciated. TCU recommended. CTA head/neck is normal. echocardiogram showed normal ejection fraction. 3. Confusion. resolving. Continue aspirin and Lipitor. Continue Keppra. Continue supportive care. 4. Hypercholesterolemia. Started on Lipitor. 5. Multiple myeloma. Patient to follow up outpatient chemotherapy with oncologist Dr. Kinsey. 6. GI/DVT prophylaxis. Protonix/Lovenox. Patient was seen and examined with PMD Dr. Littlejohn. Transfer to TCU today. case discussed with significant other in detail by the bedside. upon discharge patient will follow uph PMD Dr. Littlejohn.
[2018-04-17 18:23] VITALS: BP 121/81; PULSE 84; TEMP 98.9
== END 2018-04-17 19:11 | DRG 65 ==
LOC: ED 03:00 → ERH 04:29 → 2RNO 06:45
PROVIDERS: ADMIT Internal Medicine; ATTEND Internal Medicine
DX: I63.81 Other cerebral infarction due to occlusion or stenosis of small artery (principal); C90.00 Multiple myeloma not having achieved remission; R56.9 Unspecified convulsions; I10 Essential (primary) hypertension; E87.6 Hypokalemia; E78.00 Pure hypercholesterolemia, unspecified; K21.9 Gastro-esophageal reflux disease without esophagitis; G47.30 Sleep apnea, unspecified

== ENCOUNTER 2018-04-17 19:13 | Inpatient (IN) | payer OTHER, BC ==
[2018-04-18 01:17] VITALS: BMI 21.7
[2018-04-18] MEDS: Pantoprazole 40 mg EC Tab PO SCH (05:38)
[2018-04-18] MEDS ORDERED: Enoxaparin 40 mg Syringe SC SCH (06:00)
[2018-04-18 06:08] LABS: BASO # 0.04 K/mm3 (0.0-2.0); BASO % 0.5 % (0.0-3.0); EOS # 0.3 (0.0-0.7); EOS % 3.3 % (1.5-5.0); HEMOGLOBIN 11.4 g/dL (12.0-16.0); LYMPH # 1.6 (1.2-3.4); MEAN CELL VOLUME 97.8 fl (80.0-105.0); MEAN CORPUSCULAR HEMOGLOBIN 31.4 pg (25.0-35.0); MEAN CORPUSCULAR HGB CONC 32.1 g/dl (31.0-37.0); MEAN PLATELET VOLUME 9.3 fl (7.0-11.0); MONO # 1.1 (0.1-0.6); MONO % 14.5 % (1.0-6.0); RBC 3.63 10^6/uL (3.5-6.1); RED CELL DISTRIBUTION WIDTH 14.4 % (11.5-14.5); WHITE BLOOD COUNT 7.7 10^3/uL (4.5-11.0)
[2018-04-18 07:13] LABS: ALB/GLOB RATIO 0.7 (1.1-1.8); ALBUMIN 4.1 g/dL (3.0-4.8); ALT/SGPT < 6 U/L (7-56); AST/SGOT 29 U/L (14-36); BLOOD UREA NITROGEN 13 mg/dL (7-21); CALCIUM 9.4 mg/dL (8.4-10.5); GFR NON-AFRICAN AMERICAN 37
--- NOTE | 2018-04-18 09:30 | CP.PCM.HP ---
<Abiel Alcantar - Last Filed: 04/18/18 09:20> History of Present Illness - History of Present Illness History of Present Illness: Abiel Alcantar, PGY1 H&P for Dr. Zimmerman cc: seizures Patient is a 67 year old female with past medical history of seizures, multiple myeloma, HTN, GERD, anxiety presenting with chief complaint of seizure like activity. She was noted to be briefly unresponsive with her arms clenched. Medical team evaluated patient. Neurology was placed on board. Recommendations were appreciated. Patient was admitted to telemetry for seizures. She was placed on seizure precautions and started on keppra. Brain MRI and EEG was also ordered. During hospital course, patient's Brain MRI showed subacute-chronic small lacunar infarct at the right basal ganglia, less than one cm in size. Neurology was made aware and patient also verbalized understanding. Patient started on aspirin and lipitor. CTA Head/Neck also done and was unremarkable. PT was also on board. She had no difficulty with speech and swallow. Patient did not have any focal neuro deficits or signs of extremity weakness or decreased sensation. However, upon evaluation by PT the recommendation was for TCU due to gait instability. Patient is transferred to TCU. Currently patient denies cp, sob, n/v/d, fever, chills, headache. PMD: Dr. Littlejohn Bait Tier: Dr. Kinsey PMH: seizures, multiple myeloma, HTN, anxiety, GERD PSH: denies SHx: denies alcohol, tobacco, illicit drug use FHx: mother (breast cancer) Meds: see MAR. Allergies: NKDA Present on Admission - Present on Admission Any Indicators Present on Admission: No Review of Systems - Review of Systems All systems: reviewed and no additional remarkable complaints except (as per HPI) Past Patient History - Infectious Disease Hx of Infectious Diseases: None - Past Social History Smoking Status: Never Smoked - CARDIAC Hx Cardiac Disorders: Yes - PULMONARY Hx Respiratory Disorders: Yes Hx Sleep Apnea: Yes - NEUROLOGICAL Hx Neurological Disorder: Yes Hx Seizures: Yes - HEENT Hx HEENT Problems: Yes (FAR SIGHTED NO GLASSES.) - RENAL Hx Chronic Kidney Disease: No - ENDOCRINE/METABOLIC Hx Endocrine Disorders: No - HEMATOLOGICAL/ONCOLOGICAL Hx Blood Disorders: Yes Hx Anemia: Yes (BLOOD TRANSFUSION) Hx Cancer: Yes (Multiple myeloma) Hx Chemotherapy: Yes - INTEGUMENTARY Hx Dermatological Problems: No - MUSCULOSKELETAL/RHEUMATOLOGICAL Hx Falls: Yes - GASTROINTESTINAL Hx Gastrointestinal Disorders: Yes (GERD) - GENITOURINARY/GYNECOLOGICAL Hx Genitourinary Disorders: No Hx Reproductive Disorders: No - PSYCHIATRIC Hx Psychophysiologic Disorder: Yes Hx Anxiety: Yes Hx Emotional Abuse: No Hx Physical Abuse: No Hx Substance Use: No - SURGICAL HISTORY Hx Surgeries: Yes (LEFT BREAST CYST REMOVED) - ANESTHESIA Hx Anesthesia Reactions: No Hx Malignant Hyperthermia: No Meds Allergies/Adverse Reactions: Allergies Allergy/AdvReac Type Severity Reaction Status Date / Time No Known Allergies Allergy Verified 04/13/18 15:42 Physical Exam - Constitutional Appears: Well, No Acute Distress - Head Exam Head Exam: ATRAUMATIC, NORMAL INSPECTION, NORMOCEPHALIC - Eye Exam Eye Exam: EOMI, Normal appearance - ENT Exam ENT Exam: Mucous Membranes Moist - Respiratory Exam Respiratory Exam: Clear to Auscultation Bilateral, NORMAL BREATHING PATTERN. absent: Rales, Rhonchi, Wheezes, Respiratory Distress - Cardiovascular Exam Cardiovascular Exam: RRR, +S1, +S2 - GI/Abdominal Exam GI & Abdominal Exam: Normal Bowel Sounds, Soft. absent: Tenderness - Extremities Exam Extremities exam: Positive for: normal capillary refill, normal inspection, pedal pulses present - Back Exam Back exam: NORMAL INSPECTION - Neurological Exam Neurological exam: Alert, CN II-XII Intact, Oriented x3, Reflexes Normal - Psychiatric Exam Psychiatric exam: Normal Affect, Normal Mood - Skin Skin Exam: Dry, Intact, Normal Color, Warm Results - Vital Signs Recent Vital Signs: Last Vital Signs Temp 98.3 F 04/17/18 21:22 Pulse 121 H 04/17/18 21:22 Resp 18 04/17/18 21:22 BP 137/89 04/17/18 21:22 Pulse Ox - Labs Result Diagrams: 04/18/18 05:50 04/18/18 05:50 Labs: Laboratory Results - last 24 hr 04/18/18 04/18/18 05:50 05:50 WBC 7.7 RBC 3.63 Hgb 11.4 L Hct 35.5 L MCV 97.8 MCH 31.4 MCHC 32.1 RDW 14.4 Plt Count 384 MPV 9.3 Neut % (Auto) 60.7 Lymph % (Auto) 21.0 L [place] % (Auto) 14.5 H Eos % (Auto) 3.3 Baso % (Auto) 0.5 Lymph # (Auto) 1.6 [place] # (Auto) 1.1 H Eos # (Auto) 0.3 Baso # (Auto) 0.04 Absolute Neuts (auto) 4.64 Sodium 142 Potassium 3.6 Chloride 109 H Carbon Dioxide 23 Anion Gap 14 BUN 13 Creatinine 1.4 H Est GFR ( Amer) 45 Est GFR (Non-Af Amer) 37 Random Glucose 117 H Calcium 9.4 Phosphorus 4.7 H Magnesium 1.8 Total Bilirubin 0.3 AST 29 ALT < 6 L Alkaline Phosphatase 109 Total Protein 9.7 H Albumin 4.1 Globulin 5.6 Albumin/Globulin Ratio 0.7 L Assessment & Plan - Assessment and Plan (Free Text) Assessment: Patient is a 67 year old female with past medical history of seizures, multiple myeloma, HTN, anxiety, GERD who presented to the ED for loss of consciousness. Patient admitted for seizures on telemetry. Neurology is on consult. Upon imaging, Brain MRI showed a subacute-chronic small lacunar infarct at the right basal ganglia. Patient is currently in TCU for gait instability. Plan: Subacute-chronic Small Lacunar Infarct at the R-Basal Ganglia - TCU for rehabilitation as per PT recs (gait instability) - c/w ASA 81mg - c/w Lipitor 40mg PO qHS - CTA Head/Neck (04/15): unremarkable - Neurology is aware (Dr. Ramos). Recs appreciated. - Brain MRI (04/13): small lacunar infarct at right basal ganglia, less than one cm. Seizures - c/w 500 mg Keppra q12 - As per neuro recs, d/w patient to avoid driving for 3 months and avoid swimming alone - Neurology on consult (Dr. Ramos). Recs appreciated. - c/w seizure precautions and neurochecks - HHD - Hx of multiple myeloma Anxiety - c/w home med xanax 1mg PO TID Hx HTN - normotensive PPX - Lovenox SC - Protonix PO Diet: HHD Dispo: Monitor patient in the TCU. Case was discussed and reviewed with Attending Physician, Dr. Zimmerman <Cory Zimmerman - Last Filed: 04/19/18 07:58> Results - Vital Signs Recent Vital Signs: Last Vital Signs Temp 98.9 F 04/18/18 16:21 Pulse 120 H 04/18/18 16:21 Resp 20 04/18/18 16:21 BP 128/82 04/18/18 16:21 Pulse Ox 93 L 04/18/18 16:21 - Labs Result Diagrams: 04/18/18 05:50 04/18/18 05:50 Attending/Attestation - Attestation I have personally seen and examined this patient.: Yes I have fully participated in the care of the patient.: Yes I have reviewed all pertinent clinical information: Yes Notes (Text): 04/19/18 07:55 attending note; Patient seen and examined with resident in TCU. Patient is alert and awake. tolerating diet well. Denies any chest pain, shortness of breath. Denies any headache. Denies any nausea, vomiting. Patient is a 67-year-old female past medical history significant for seizures, multiple myeloma, hypertension, GERD, and anxiety that presented to the emergency room with seizures. currently seizure free and transferred to TCU yesterday. 1. Gait instability; continue physical therapy and occupational therapy. 2. Seizure. currently patient is alert and awake. Seizure free. Continue Keppra. 3. Subacute to chronic lacunar infarct seen on MRI brain. Started on ASA and Lipitor. CTA head/neck is normal. echocardiogram showed normal ejection fraction. 3. Confusion. resolved. Continue aspirin and Lipitor. 4. Hypercholesterolemia. Started on Lipitor. 5. Multiple myeloma. Patient to follow up outpatient chemotherapy with oncologist Dr. Kinsey. 6. GI/DVT prophylaxis. Protonix/Lovenox. upon discharge patient will follow uph PMD Dr. Littlejohn.
[2018-04-19] MEDS: Enoxaparin 30 mg Syringe SC SCH (06:02)
[2018-04-19] MEDS: Pantoprazole 40 mg EC Tab PO SCH (06:03)
[2018-04-20] MEDS: Pantoprazole 40 mg EC Tab PO SCH (05:33)
[2018-04-20] MEDS: Enoxaparin 30 mg Syringe SC SCH (05:33)
--- NOTE | 2018-04-20 14:53 | CP.PCM.PN ---
<[place] - Last Filed: 04/20/18 14:43> Subjective - Date & Time of Evaluation Date of Evaluation: 04/20/18 Time of Evaluation: 10:00 - Subjective Subjective: [facility] Resident- Progress Note on Behalf of Hospitalist Team Subjective: Patient seen and examined at bedside. Resting comfortably in bed. Admits to biting her tongue with associated pain on right side. States she is p articipating in rehab. Denies fever, chills, chest pain, shortness of breath, abdominal pain, nausea, vomiting, diarrhea, constipation, and urinary symptoms. 12 point ROS negative except as indicated in the HPI Physical Examination: - Constitutional Appears: Well, No Acute Distress - Head Exam Head Exam: ATRAUMATIC, NORMAL INSPECTION, NORMOCEPHALIC - Eye Exam Eye Exam: EOMI, Normal appearance - ENT Exam ENT Exam: Mucous Membranes Moist, no tongue lesions/signs of injury - Respiratory Exam Respiratory Exam: Clear to Auscultation Bilateral, NORMAL BREATHING PATTERN. absent: Rales, Rhonchi, Wheezes, Respiratory Distress - Cardiovascular Exam Cardiovascular Exam: RRR, +S1, +S2 - GI/Abdominal Exam GI & Abdominal Exam: Normal Bowel Sounds, Soft. absent: Tenderness - Extremities Exam Extremities exam: Positive for: normal capillary refill, normal inspection, pedal pulses present - Back Exam Back exam: NORMAL INSPECTION - Neurological Exam Neurological exam: Alert, CN II-XII Intact, Oriented x3, Reflexes Normal - Psychiatric Exam Psychiatric exam: Normal Affect, Normal Mood - Skin Skin Exam: Dry, Intact, Normal Color, Warm Assessment and Plan: Patient is a 67 year old female with past medical history of seizures, multiple myeloma, HTN, anxiety, GERD who was admitted for loss of consciousness and seizure like activity. Upon imaging, Brain MRI showed a subacute-chronic small lacunar infarct at the right basal ganglia. Patient was medically optimized and transferred to TCU for physical rehabilitation. Mouth Pain - start lidocaine 2% 15ml swish and spit BID Subacute-chronic Small Lacunar Infarct at the R-Basal Ganglia - TCU for rehabilitation as per PT recs (gait instability) - c/w ASA 81mg PO daily - c/w Lipitor 40mg PO qHS Seizures - c/w Keppra 500 mg PO BID - c/w seizure precautions and neurochecks Anxiety - c/w home med xanax 1mg PO TID PPX - Lovenox 30mg SC daily - Protonix 40mg PO daily Case discussed with and plan approved by attending physician, Dr. Zimmerman Objective - Vital Signs/Intake and Output Vital Signs (last 24 hours): Temp Pulse Resp BP Pulse Ox 98.3 F 111 H 18 123/79 95 04/19/18 16:00 04/19/18 16:00 04/19/18 16:00 04/19/18 16:00 04/19/18 16:00 - Medications Medications: Current Medications Alprazolam (Xanax) 1 mg PO TID [facility]; Protocol Last Admin: 04/20/18 09:19 Dose: 1 mg Aspirin (Ecotrin) 81 mg PO DAILY [facility]; Protocol Last Admin: 04/20/18 09:17 Dose: 81 mg Atorvastatin Calcium (Lipitor) 40 mg PO DIN [facility]; Protocol Last Admin: 04/19/18 17:26 Dose: 40 mg Enoxaparin Sodium (Lovenox) 30 mg SC 0600 [facility]; Protocol Last Admin: 04/20/18 05:33 Dose: 30 mg Levetiracetam (Keppra) 500 mg PO BID [facility]; Protocol Last Admin: 04/20/18 09:17 Dose: 500 mg Lidocaine HCl (Lidocaine 2% Viscous) 15 ml MM Q8H PRN PRN Reason: Dry mouth Ondansetron HCl (Zofran Inj) 4 mg IVP Q4H PRN; Protocol PRN Reason: Nausea/Vomiting Pantoprazole Sodium (Protonix Ec Tab) 40 mg PO 0600 [facility]; Protocol Last Admin: 04/20/18 05:33 Dose: 40 mg - Labs Labs: 04/18/18 05:50 04/18/18 05:50 <Cory Zimmerman - Last Filed: 04/20/18 17:38> Objective - Vital Signs/Intake and Output Vital Signs (last 24 hours): Temp Pulse Resp BP Pulse Ox 97.3 F L 96 H 20 107/61 98 04/20/18 10:00 04/20/18 10:00 04/20/18 10:00 04/20/18 10:00 04/20/18 10:00 - Medications Medications: Current Medications Alprazolam (Xanax) 1 mg PO TID [facility]; Protocol Last Admin: 04/20/18 17:19 Dose: 1 mg Aspirin (Ecotrin) 81 mg PO DAILY [facility]; Protocol Last Admin: 04/20/18 09:17 Dose: 81 mg Atorvastatin Calcium (Lipitor) 40 mg PO DIN [facility]; Protocol Last Admin: 04/20/18 17:20 Dose: 40 mg Enoxaparin Sodium (Lovenox) 30 mg SC 0600 [facility]; Protocol Last Admin: 04/20/18 05:33 Dose: 30 mg Levetiracetam (Keppra) 500 mg PO BID [facility]; Protocol Last Admin: 04/20/18 17:20 Dose: 500 mg Lidocaine HCl (Lidocaine 2% Viscous) 15 ml MM Q8H PRN PRN Reason: Dry mouth Ondansetron HCl (Zofran Inj) 4 mg IVP Q4H PRN; Protocol PRN Reason: Nausea/Vomiting Pantoprazole Sodium (Protonix Ec Tab) 40 mg PO 0600 [facility]; Protocol Last Admin: 04/20/18 05:33 Dose: 40 mg - Labs Labs: 04/18/18 05:50 04/18/18 05:50 Attending/Attestation - Attestation I have personally seen and examined this patient.: Yes I have fully participated in the care of the patient.: Yes I have reviewed all pertinent clinical information, including history, physical exam and plan: Yes Notes (Text): 04/20/18 17:38 attending note; Patient seen and examined with resident in TCU. Patient is alert and awake. Patient's friend by the bedside. tolerating diet well. Denies any chest pain, shortness of breath. Denies any headache. Denies any nausea, vomiting. Complaining of small ulceration on the tongue. Started on lidocaine mouthwash. Patient is a 67-year-old female past medical history significant for seizures, multiple myeloma, hypertension, GERD, and anxiety that presented to the emergency room with seizures. currently seizure free and transferred to TCU yesterday. 1. Gait instability; continue physical therapy and occupational therapy. 2. Seizure. currently patient is alert and awake. Seizure free. Continue Keppra. 3. Subacute to chronic lacunar infarct seen on MRI brain. Started on ASA and Lipitor. CTA head/neck is normal. echocardiogram showed normal ejection fraction. 3. Confusion. resolved. Continue aspirin and Lipitor. 4. Hypercholesterolemia. Started on Lipitor. 5. Multiple myeloma. Patient to follow up outpatient chemotherapy with oncologist Dr. Kinsey. 6. GI/DVT prophylaxis. Protonix/Lovenox. upon discharge patient will follow uph PMD Dr. Littlejohn.
[2018-04-21] MEDS: Pantoprazole 40 mg EC Tab PO SCH (05:31)
[2018-04-21] MEDS: Enoxaparin 30 mg Syringe SC SCH (05:31)
[2018-04-22] MEDS: Pantoprazole 40 mg EC Tab PO SCH (05:28)
[2018-04-22] MEDS: Enoxaparin 30 mg Syringe SC SCH (05:29)
--- NOTE | 2018-04-22 11:40 | CP.PCM.PN ---
<Yolanda Hardin - Last Filed: 04/22/18 15:00> Subjective - Date & Time of Evaluation Date of Evaluation: 04/22/18 Time of Evaluation: 07:25 - Subjective Subjective: Yolanda Hardin DO, PGY-2: Progress Note for Dr. Gabbie Madison Patient seen and examined at bedside. Resting comfortably in bed. She did not complain of tongue pain. States she is participating in rehab. Denies fever, chills, chest pain, shortness of breath, abdominal pain, nausea, vomiting, diarrhea, constipation, and urinary symptoms. Objective - Vital Signs/Intake and Output Vital Signs (last 24 hours): Temp Pulse Resp BP Pulse Ox 98.1 F 90 20 122/80 97 04/21/18 16:00 04/21/18 16:00 04/21/18 16:00 04/21/18 16:00 04/21/18 16:00 - Medications Medications: Current Medications Alprazolam (Xanax) 1 mg PO TID [facility]; Protocol Last Admin: 04/22/18 10:03 Dose: 1 mg Aspirin (Ecotrin) 81 mg PO DAILY [facility]; Protocol Last Admin: 04/22/18 10:03 Dose: 81 mg Atorvastatin Calcium (Lipitor) 40 mg PO DIN [facility]; Protocol Last Admin: 04/21/18 17:21 Dose: 40 mg Enoxaparin Sodium (Lovenox) 30 mg SC 0600 [facility]; Protocol Last Admin: 04/22/18 05:29 Dose: 30 mg Levetiracetam (Keppra) 500 mg PO BID [facility]; Protocol Last Admin: 04/22/18 10:03 Dose: 500 mg Lidocaine HCl (Lidocaine 2% Viscous) 15 ml MM Q8H PRN PRN Reason: Dry mouth Ondansetron HCl (Zofran Inj) 4 mg IVP Q4H PRN; Protocol PRN Reason: Nausea/Vomiting Pantoprazole Sodium (Protonix Ec Tab) 40 mg PO 0600 [facility]; Protocol Last Admin: 04/22/18 05:28 Dose: 40 mg - Labs Labs: 04/18/18 05:50 04/18/18 05:50 - Constitutional Appears: Well, Non-toxic - Head Exam Head Exam: ATRAUMATIC, NORMOCEPHALIC - Eye Exam Eye Exam: EOMI, Normal appearance - ENT Exam ENT Exam: Mucous Membranes Moist, Normal Oropharynx - Respiratory Exam Respiratory Exam: Clear to Ausculation Bilateral, NORMAL BREATHING PATTERN. absent: Accessory Muscle Use - Cardiovascular Exam Cardiovascular Exam: RRR, +S1, +S2 - GI/Abdominal Exam GI & Abdominal Exam: Soft, Normal Bowel Sounds - Extremities Exam Extremities Exam: Normal Inspection. absent: Calf Tenderness - Back Exam Back Exam: NORMAL INSPECTION. absent: CVA tenderness (L), CVA tenderness (R) - Neurological Exam Neurological Exam: Alert, Awake, Oriented x3 - Psychiatric Exam Psychiatric exam: Normal Affect, Normal Mood - Skin Skin Exam: Dry, Intact, Normal Color, Warm Assessment and Plan - Assessment and Plan (Free Text) Assessment: 67 year old female with past medical history of seizures, multiple myeloma, HTN, anxiety, GERD who was admitted for loss of consciousness and seizure like activity. Upon imaging, Brain MRI showed a subacute-chronic small lacunar infarct at the right basal ganglia. Patient was medically optimized and transferred to TCU for physical rehabilitation. 1) Mouth Pain - start lidocaine 2% 15ml swish and spit BID 2) Subacute-chronic Small Lacunar Infarct at the R-Basal Ganglia - TCU for rehabilitation as per PT recs (gait instability) - c/w ASA 81mg PO daily - c/w Lipitor 40mg PO qHS 3) Seizures - c/w Keppra 500 mg PO BID - c/w seizure precautions and neurochecks 4) Anxiety - c/w home med xanax 1mg PO TID Prophylaxis - SCD - Protonix 40mg PO daily Case discussed with and plan approved by attending physician, Dr. Gabbie Madison <Gabbie Madison R - Last Filed: 04/26/18 07:41> Objective - Vital Signs/Intake and Output Vital Signs (last 24 hours): Temp Pulse Resp BP Pulse Ox 98.3 F 93 H 18 105/72 94 L 04/24/18 16:00 04/24/18 16:00 04/24/18 16:00 04/24/18 16:00 04/24/18 16:00 - Labs Labs: 04/25/18 06:00 04/25/18 06:00 Attending/Attestation - Attestation I have personally seen and examined this patient.: Yes I have fully participated in the care of the patient.: Yes I have reviewed all pertinent clinical information, including history, physical exam and plan: Yes Notes (Text): Patient seen and examined by me with resident at approximately 12:10PM on 04/22/18. Case including HPI, physical exam, and assessment and plan discussed with resident. Agree with above with following additions/corrections. Patient is a 67-year-old female past medical history significant for seizures, multiple myeloma, hypertension, GERD, and anxiety that presented to the emergency room with seizures. Patient was treated. Patient was seen by physical therapy for gait instability and TCU was recommended. Patient was transferred to TCU on 04/17/18. Patient states she is feeling ok. Feels tired. Patient states she does not want the heparin shots as they are making her abdomen sore. Patient states she is d oing well with physical therapy. Patient denies dizziness or lightheadedness. No headaches. No chest pain or palpitations. No shortness of breath. No dysuria. No nausea or vomiting. Patient is tolerating diet. No diarrhea or constipation. Physical exam: General: Awake and alert lying in bed in no acute distress. HEENT: Normocephalic, atraumatic. Extraocular muscles intact, pupils equal and reactive, no scleral icterus. Oropharynx is pink and moist. No pharyngeal erythema or exudate appreciated. Neck is supple. Cardiovascular: Normal rhythm. Normal S1 and S2. No murmurs, rubs, or gallops appreciated Pulmonary: Normal respiratory effort. No rhonchi, rales, or wheezing appreciated. Gastrointestinal: Soft, nondistended. Nontender. Positive bowel sounds all 4 quadrants. No guarding. Positive small area of eccyhmosis lower abdomen. Musculoskeletal: Moves all extremities. No calf tenderness. No edema appreciated. Central nervous system: Awake and alert. Dermatologic: Skin warm and dry. Assessment and plan: Patient is a 67-year-old female past medical history significant for seizures, multiple myeloma, hypertension, GERD, and anxiety that presented to the emergency room with seizures. Patient was treated. Patient was seen by physical therapy for gait instability and TCU was recommended. Patient was transferred to TCU on 04/17/18. 1. Gait instability. Improved. Continue physical therapy as tolerated. 2. Seizure. Continue Keppra. Neurology following. Brain MRI per radiologist showed there are no enhancing parenchymal nor extra-axial masses or collections seen to suggest metastases, no evidence of unusual meningeal enhancement; small curvilinear focus of restricted diffusion in the posterior patella that could represent a small subacute to chronic infarct; chronic white matter and basal nuclei ischemic changes; mild to moderate significant central volume loss which has progressed since prior exam; previously noted multiple small rounded lytic lesions (consistent with the patient's history of multiple myeloma) scattered throughout the inner table of the calvarium are less well seen on the study is compared to a high-resolution bone window on CT scan 04/12/2018; chronic bilateral basal nuclear lacunar type infarcts admixed with dilated perivascular spaces. 3. Subacute to chronic lacunar infarct seen on MRI brain. Continue ASA and Lipitor. Neurology following. 4. Hypercholesterolemia. Continue lipitor. 5. Multiple myeloma. Patient to follow up outpatient chemotherapy with oncologist Dr. Kinsey. 6. Patient is a full code. Case discussed in detail with patient regarding current diagnosis and treatment plan. All questions answered.
[2018-04-22 16:55] VITALS: RESP 18
[2018-04-23] MEDS: Pantoprazole 40 mg EC Tab PO SCH (05:51)
[2018-04-23 10:35] VITALS: PULSE 93
[2018-04-24] MEDS: Pantoprazole 40 mg EC Tab PO SCH (05:24)
--- NOTE | 2018-04-24 07:26 | CP.PCM.PN ---
<Nolberto Arora - Last Filed: 04/24/18 17:57> Subjective - Date & Time of Evaluation Date of Evaluation: 04/24/18 Time of Evaluation: 07:26 - Subjective Subjective: Resident Progress Note for Hospitalist Service Patient examined at bedside. No acute events overnight. Patient offers no symptomatic complaints, states she has good PO intake. Denies fevers, chills, nausea, vomiting, abdominal pain, diarrhea, dysuria. Plan for discharge from TCU tomorrow. Objective - Vital Signs/Intake and Output Vital Signs (last 24 hours): Temp Pulse Resp BP Pulse Ox 98.4 F 93 H 18 135/83 95 04/23/18 10:00 04/23/18 10:00 04/23/18 10:00 04/23/18 10:00 04/23/18 10:00 - Medications Medications: Current Medications Alprazolam (Xanax) 1 mg PO TID [facility]; Protocol Last Admin: 04/23/18 17:39 Dose: 1 mg Aspirin (Ecotrin) 81 mg PO DAILY [facility]; Protocol Last Admin: 04/23/18 09:54 Dose: 81 mg Atorvastatin Calcium (Lipitor) 40 mg PO DIN [facility]; Protocol Last Admin: 04/23/18 17:38 Dose: 40 mg Levetiracetam (Keppra) 500 mg PO BID [facility]; Protocol Last Admin: 04/23/18 17:38 Dose: 500 mg Lidocaine HCl (Lidocaine 2% Viscous) 15 ml MM Q8H PRN PRN Reason: Dry mouth Ondansetron HCl (Zofran Inj) 4 mg IVP Q4H PRN; Protocol PRN Reason: Nausea/Vomiting Pantoprazole Sodium (Protonix Ec Tab) 40 mg PO 0600 [facility]; Protocol Last Admin: 04/24/18 05:24 Dose: 40 mg - Labs Labs: 04/18/18 05:50 04/18/18 05:50 - Additional Findings Additional findings: - Constitutional Appears: Well, Non-toxic - Head Exam Head Exam: ATRAUMATIC, NORMOCEPHALIC - Eye Exam Eye Exam: EOMI, Normal appearance - ENT Exam ENT Exam: Mucous Membranes Moist - Respiratory Exam Respiratory Exam: Clear to Ausculation Bilateral, NORMAL BREATHING PATTERN. absent: Accessory Muscle Use - Cardiovascular Exam Cardiovascular Exam: RRR, +S1, +S2 - GI/Abdominal Exam GI & Abdominal Exam: Soft, Normal Bowel Sounds - Extremities Exam Extremities Exam: Normal Inspection. absent: Calf Tenderness - Neurological Exam Neurological Exam: Alert, Awake, Oriented x3 - Psychiatric Exam Psychiatric exam: Normal Affect, Normal Mood - Skin Skin Exam: Dry, Intact, Normal Color, Warm Assessment and Plan - Assessment and Plan (Free Text) Assessment: Patient is a 67 year old female with past medical history of seizures, multiple myeloma, HTN, anxiety, GERD who was admitted for loss of consciousness and seizure like activity. Brain MRI showed a subacute-chronic small lacunar infarct at the right basal ganglia. Patient was medically optimized and transferred to TCU for physical rehabilitation. Plan: Subacute-chronic lacunar infarct - TCU for rehabilitation as per PT recs (gait instability) - continue ASA 81mg PO daily - continue Lipitor 40mg PO qHS Seizures - continue Keppra 500 mg PO BID - seizure precautions and neurochecks Anxiety - continue home med xanax 1mg PO TID PPX - SCD - Protonix 40mg PO daily Case discussed with Dr. Erasmo Arora PGY-1 <Cory Zimmerman - Last Filed: 04/29/18 07:44> Objective - Vital Signs/Intake and Output Vital Signs (last 24 hours): Temp Pulse Resp BP Pulse Ox 98.3 F 93 H 18 105/72 94 L 04/24/18 16:00 04/24/18 16:00 04/24/18 16:00 04/24/18 16:00 04/24/18 16:00 - Labs Labs: 04/25/18 06:00 04/25/18 06:00 Attending/Attestation - Attestation I have personally seen and examined this patient.: Yes I have fully participated in the care of the patient.: Yes I have reviewed all pertinent clinical information, including history, physical exam and plan: Yes Notes (Text): 04/29/18 07:43 attending note; Patient seen and examined with resident in TCU. Patient is alert and awake. tolerating diet well. Denies any chest pain, shortness of breath. Denies any headache. Denies any nausea, vomiting. Patient is a 67-year-old female past medical history significant for seizures, multiple myeloma, hypertension, GERD, and anxiety that presented to the emergency room with seizures. currently seizure free and transferred to TCU yesterday. 1. Gait instability; continue physical therapy and occupational therapy. 2. Seizure. currently patient is alert and awake. Seizure free. Continue Keppra. 3. Subacute to chronic lacunar infarct seen on MRI brain. Started on ASA and Lipitor. CTA head/neck is normal. echocardiogram showed normal ejection fraction. 3. Confusion. resolved. Continue aspirin and Lipitor. 4. Hypercholesterolemia. Started on Lipitor. 5. Multiple myeloma. Patient to follow up outpatient chemotherapy with oncologi st Dr. Kinsey. 6. GI/DVT prophylaxis. Protonix/Lovenox. discharge home tomorrow. case discussed with case aide and social media senior associate in detail for discharge planning. upon discharge patient will follow up PMD Dr. Littlejohn.
[2018-04-24 16:46] VITALS: BP 105/72; TEMP 98.3; O2SAT 94
[2018-04-25] MEDS: Pantoprazole 40 mg EC Tab PO SCH (05:26)
[2018-04-25 07:10] LABS: HEMOGLOBIN 11.2 g/dL (12.0-16.0); MEAN CELL VOLUME 100.6 fl (80.0-105.0); MEAN CORPUSCULAR HEMOGLOBIN 31.5 pg (25.0-35.0); MEAN CORPUSCULAR HGB CONC 31.4 g/dl (31.0-37.0); MEAN PLATELET VOLUME 10.1 fl (7.0-11.0); RBC 3.55 10^6/uL (3.5-6.1); RED CELL DISTRIBUTION WIDTH 14.2 % (11.5-14.5); WHITE BLOOD COUNT 6.9 10^3/uL (4.5-11.0)
[2018-04-25 07:42] LABS: ALB/GLOB RATIO 0.8 (1.1-1.8); ALBUMIN 4.1 g/dL (3.0-4.8); ALT/SGPT < 6 U/L (7-56); AST/SGOT 38 U/L (14-36); BLOOD UREA NITROGEN 8 mg/dL (7-21); CALCIUM 8.6 mg/dL (8.4-10.5); GFR NON-AFRICAN AMERICAN 45
--- NOTE | 2018-04-25 20:49 | CP.PCM.DIS ---
<Nolberto Arora L - Last Filed: 04/25/18 20:49> Provider - Provider Date of Admission: 04/17/18 19:13 Attending physician: Gabbie Madison DO Primary care physician: Otf Littlejohn MD Consults: 04/17/18 20:28 Social Work Referral Routine Comment: EVAL Physician Instructions: Reason For Exam: EVAL 04/17/18 20:29 Physician Consult Routine Comment: Consulting Provider: Garrett Ramos Consulting Physician: Garrett Ramos Reason for Consult: SEIZURES Time Spent in preparation of Discharge (in minutes): 35 Diagnosis - Discharge Diagnosis (1) Seizure Status: Resolved Hospital Course - Lab Results Lab Results: Most Recent Lab Values WBC 6.9 10^3/uL (4.5-11.0) 04/25/18 06:00 RBC 3.55 10^6/uL (3.5-6.1) 04/25/18 06:00 Hgb 11.2 g/dL (12.0-16.0) L 04/25/18 06:00 Hct 35.7 % (36.0-48.0) L 04/25/18 06:00 MCV 100.6 fl (80.0-105.0) 04/25/18 06:00 MCH 31.5 pg (25.0-35.0) 04/25/18 06:00 MCHC 31.4 g/dl (31.0-37.0) 04/25/18 06:00 RDW 14.2 % (11.5-14.5) 04/25/18 06:00 Plt Count 364 10^3/uL (120.0-450.0) 04/25/18 06:00 MPV 10.1 fl (7.0-11.0) 04/25/18 06:00 Neut % (Auto) 60.7 % (50.0-68.0) 04/18/18 05:50 Lymph % (Auto) 21.0 % (22.0-35.0) L 04/18/18 05:50 [place] % (Auto) 14.5 % (1.0-6.0) H 04/18/18 05:50 Eos % (Auto) 3.3 % (1.5-5.0) 04/18/18 05:50 Baso % (Auto) 0.5 % (0.0-3.0) 04/18/18 05:50 Lymph # (Auto) 1.6 (1.2-3.4) 04/18/18 05:50 [place] # (Auto) 1.1 (0.1-0.6) H 04/18/18 05:50 Eos # (Auto) 0.3 (0.0-0.7) 04/18/18 05:50 Baso # (Auto) 0.04 K/mm3 (0.0-2.0) 04/18/18 05:50 Absolute Neuts (auto) 4.64 (1.4-6.5) 04/18/18 05:50 Sodium 141 mmol/L (132-148) 04/25/18 06:00 Potassium 3.8 mmol/L (3.6-5.0) 04/25/18 06:00 Chloride 108 mmol/L (98-107) H 04/25/18 06:00 Carbon Dioxide 24 mmol/L (21-33) 04/25/18 06:00 Anion Gap 12 (10-20) 04/25/18 06:00 BUN 8 mg/dL (7-21) 04/25/18 06:00 Creatinine 1.2 mg/dl (0.7-1.2) 04/25/18 06:00 Est GFR ( Amer) 54 04/25/18 06:00 Est GFR (Non-Af Amer) 45 04/25/18 06:00 Random Glucose 98 mg/dL (70-110) 04/25/18 06:00 Calcium 8.6 mg/dL (8.4-10.5) 04/25/18 06:00 Phosphorus 4.7 mg/dL (2.5-4.5) H 04/18/18 05:50 Magnesium 1.8 mg/dL (1.7-2.2) 04/18/18 05:50 Total Bilirubin 0.3 mg/dL (0.2-1.3) 04/25/18 06:00 AST 38 U/L (14-36) H D 04/25/18 06:00 ALT < 6 U/L (7-56) L 04/25/18 06:00 Alkaline Phosphatase 121 U/L (38-126) 04/25/18 06:00 Total Protein 9.3 g/dL (5.8-8.3) H 04/25/18 06:00 Albumin 4.1 g/dL (3.0-4.8) 04/25/18 06:00 Globulin 5.2 gm/dL 04/25/18 06:00 Albumin/Globulin Ratio 0.8 (1.1-1.8) L 04/25/18 06:00 - Hospital Course Hospital Course: Patient is a 67 year old female with past medical history of seizures, multiple myeloma, HTN, GERD, anxiety presenting with chief complaint of seizure like activity. She was noted to be briefly unresponsive with her arms clenched. Medical team evaluated patient. Neurology was placed on board. Recommendations were appreciated. Patient was admitted to telemetry for seizures. She was placed on seizure precautions and started on keppra. Brain MRI and EEG was also ordered. During hospital course, patient's Brain MRI showed subacute-chronic small lacunar infarct at the right basal ganglia, less than one cm in size. Neurology was made aware and patient also verbalized understanding. Patient st arted on aspirin and lipitor. CTA Head/Neck also done and was unremarkable. PT was also on board. She had no difficulty with speech and swallow. Patient did not have any focal neuro deficits or signs of extremity weakness or decreased sensation. However, upon evaluation by PT the recommendation was for TCU due to gait instability. Patient was transferred to TCU on 04/17. Patient tolerated physical therapy and was optimized for discharge. Discharge Exam - Additional Findings Additional findings: - Constitutional Appears: Well, Non-toxic - Head Exam Head Exam: ATRAUMATIC, NORMOCEPHALIC - Eye Exam Eye Exam: EOMI, Normal appearance - ENT Exam ENT Exam: Mucous Membranes Moist - Respiratory Exam Respiratory Exam: Clear to Auscultation Bilateral, NORMAL BREATHING PATTERN. absent: Accessory Muscle Use - Cardiovascular Exam Cardiovascular Exam: RRR, +S1, +S2 - GI/Abdominal Exam GI & Abdominal Exam: Soft, Normal Bowel Sounds - Extremities Exam Extremities Exam: Normal Inspection. absent: Calf Tenderness - Neurological Exam Neurological Exam: Alert, Awake, Oriented x3 - Psychiatric Exam Psychiatric exam: Normal Affect, Normal Mood - Skin Skin Exam: Dry, Intact, Normal Color, Warm Discharge Plan - Discharge Medications Prescriptions: Atorvastatin [Lipitor] 40 mg PO DIN #14 tab levETIRAcetam [Keppra] 500 mg PO BID 14 Days tab - Follow Up Plan Condition: GOOD Disposition: HOME/ ROUTINE Instructions: Preventing Falls in the Older Adult, Seizures, Adult (DC) Additional Instructions: Please follow up with your primary medical doctor Dr. Littlejohn within 3-5 days. Also follow up with your neurologist within 3-5 days. You have been provided prescription medications. Please get any refills needed from your primary care doctor. Please take these as prescribed. Please follow up with your neurologist for your seizures and tremors Return to ED if symptoms return or worsen. Referrals: Otf Littlejohn MD [Primary Care Provider] - <Gabbie Madison - Last Filed: 04/29/18 18:12> Provider - Provider Date of Admission: 04/17/18 19:13 Attending physician: Gabbie Madison DO Primary care physician: Otf Littlejohn MD Consults: 04/17/18 20:28 Social Work Referral Routine Comment: EVAL Physician Instructions: Reason For Exam: EVAL 04/17/18 20:29 Physician Consult Routine Comment: Consulting Provider: Garrett Ramos Consulting Physician: Garrett Ramos Reason for Consult: SEIZURES Hospital Course - Lab Results Lab Results: Most Recent Lab Values WBC 6.9 10^3/uL (4.5-11.0) 04/25/18 06:00 RBC 3.55 10^6/uL (3.5-6.1) 04/25/18 06:00 Hgb 11.2 g/dL (12.0-16.0) L 04/25/18 06:00 Hct 35.7 % (36.0-48.0) L 04/25/18 06:00 MCV 100.6 fl (80.0-105.0) 04/25/18 06:00 MCH 31.5 pg (25.0-35.0) 04/25/18 06:00 MCHC 31.4 g/dl (31.0-37.0) 04/25/18 06:00 RDW 14.2 % (11.5-14.5) 04/25/18 06:00 Plt Count 364 10^3/uL (120.0-450.0) 04/25/18 06:00 MPV 10.1 fl (7.0-11.0) 04/25/18 06:00 Neut % (Auto) 60.7 % (50.0-68.0) 04/18/18 05:50 Lymph % (Auto) 21.0 % (22.0-35.0) L 04/18/18 05:50 [place] % (Auto) 14.5 % (1.0-6.0) H 04/18/18 05:50 Eos % (Auto) 3.3 % (1.5-5.0) 04/18/18 05:50 Baso % (Auto) 0.5 % (0.0-3.0) 04/18/18 05:50 Lymph # (Auto) 1.6 (1.2-3.4) 04/18/18 05:50 [place] # (Auto) 1.1 (0.1-0.6) H 04/18/18 05:50 Eos # (Auto) 0.3 (0.0-0.7) 04/18/18 05:50 Baso # (Auto) 0.04 K/mm3 (0.0-2.0) 04/18/18 05:50 Absolute Neuts (auto) 4.64 (1.4-6.5) 04/18/18 05:50 Sodium 141 mmol/L (132-148) 04/25/18 06:00 Potassium 3.8 mmol/L (3.6-5.0) 04/25/18 06:00 Chloride 108 mmol/L (98-107) H 04/25/18 06:00 Carbon Dioxide 24 mmol/L (21-33) 04/25/18 06:00 Anion Gap 12 (10-20) 04/25/18 06:00 BUN 8 mg/dL (7-21) 04/25/18 06:00 Creatinine 1.2 mg/dl (0.7-1.2) 04/25/18 06:00 Est GFR ( Amer) 54 04/25/18 06:00 Est GFR (Non-Af Amer) 45 04/25/18 06:00 Random Glucose 98 mg/dL (70-110) 04/25/18 06:00 Calcium 8.6 mg/dL (8.4-10.5) 04/25/18 06:00 Phosphorus 4.7 mg/dL (2.5-4.5) H 04/18/18 05:50 Magnesium 1.8 mg/dL (1.7-2.2) 04/18/18 05:50 Total Bilirubin 0.3 mg/dL (0.2-1.3) 04/25/18 06:00 AST 38 U/L (14-36) H D 04/25/18 06:00 ALT < 6 U/L (7-56) L 04/25/18 06:00 Alkaline Phosphatase 121 U/L (38-126) 04/25/18 06:00 Total Protein 9.3 g/dL (5.8-8.3) H 04/25/18 06:00 Albumin 4.1 g/dL (3.0-4.8) 04/25/18 06:00 Globulin 5.2 gm/dL 04/25/18 06:00 Albumin/Globulin Ratio 0.8 (1.1-1.8) L 04/25/18 06:00 Attending/Attestation - Attestation I have personally seen and examined this patient.: Yes I have fully participated in the care of the patient.: Yes I have reviewed all pertinent clinical information, including history, physical exam and plan: Yes Notes (Text): Please note this DC summary is for 04/25/18 Patient seen and examined by me with resident at approximately 11:25AM and prior to discharge on 04/25/18. Case including discharge plan discussed with resident. Agree with above with following additions/corrections. Patient is a 67-year-old female past medical history significant for seizures, multiple myeloma, hypertension, GERD, and anxiety that presented to the emergency room with seizures. Patient was treated. Patient was seen by physical therapy for gait instability and TCU was recommended. Patient was transferred to TCU on 04/17/18. Please see H&P for full details. Patient was found to have gait instability, seizure, subacute to chronic lacunar infarct, hypercholesterolemia, and multiple myeloma. Patient was followed by neurology. Brain MRI per radiologist showed there are no enhancing parenchymal nor extra-axial masses or collections seen to suggest metastases, no evidence of unusual meningeal enhancement; small curvilinear focus of restricted diffusion in the posterior patella that could represent a small subacute to chronic infarct; chronic white matter and basal nuclei ischemic changes; mild to moderate significant central volume loss which has progressed since prior exam; previously noted multiple small rounded lytic lesions (consistent with the patient's history of multiple myeloma) scattered throughout the inner table of the calvarium are less well seen on the study is compared to a high-resolution bone window on CT scan 04/12/2018; chronic bilateral basal nuclear lacunar type infarcts admixed with dilated perivascular spaces. Patient was continued on Keppra. Patient was also continued on ASA and Lipitor for subacute to chronic lacunar infarct seen on MRI brain. Patient was advised to continue to follow with her oncologist for continued treatment for multiple myeloma. Patient was found to have elevated creatinine which improved to 1.2 on discharge. Patient was also anemic but at baseline H&H. No signs of bleeding. Patient was doing well with physical therapy and completed her stay in the TCU. Patient was discharged home. On the day of discharge, patient stated she was feeling much better. Patient was ambulating with physical therapy. Patient denied chest pain and palpitations. No shortness of breath. Patient was tolerating diet. No nausea or vomiting. No abdominal pain. Patient denied headaches or lightheadedness. No change in vision or dizziness. No fevers or chills. No dysuria or burning with urination. No diarrhea or constipation. Physical exam: General: Awake and alert sitting up in chair in no acute distress HEENT: Normocephalic, atraumatic. Extraocular muscles intact, pupils equal and reactive, no scleral icterus. Oropharynx is pink and moist. No pharyngeal erythema or exudate appreciated. Neck is supple. Cardiovascular: Regular rhythm. Normal S1 and S2. No murmurs, rubs, or gallops appreciated Pulmonary: Normal respiratory effort. No rhonchi, rales, or wheezing appreciated. Gastrointestinal: Soft, nondistended. Nontender. Positive bowel sounds all 4 quadrants. No guarding. Musculoskeletal: Moves all extremities. No calf tenderness. No edema. Central nervous system: Awake and alert. CN 2-12 grossly intact Dermatologic: Skin warm and dry. Please see chart for full details. Follow up instructions: Patient to follow up with PMD within 3-5 days. Patient to follow up with neurologist within 3-5 days. All instructions explained to the patient in detail. Patient both understands and agrees to all instructions. Written instructions also given. Time spent in discharging the patient including chart review, medication reconciliation, discussion with the patient, medical appliance maker, consultants, and nursing staff was approximately 45 minutes.
== END 2018-04-25 11:05 | disposition home or self-care (01) | DRG 91 ==
LOC: TRCU 19:13
PROVIDERS: ADMIT Internal Medicine; ATTEND Hospitalist
PROC: F07Z9FZ Gait Training/Functional Ambulation Treatment using Assistive, Adaptive, Supportive or Protective Equipment (ICD-10-PCS; principal; 2018-04-19)
PROC: F07Z5FZ Bed Mobility Treatment using Assistive, Adaptive, Supportive or Protective Equipment (ICD-10-PCS; 2018-04-19)
PROC: F07Z8FZ Transfer Training Treatment using Assistive, Adaptive, Supportive or Protective Equipment (ICD-10-PCS; 2018-04-19)
PROC: F08Z2ZZ Grooming/Personal Hygiene Treatment (ICD-10-PCS; 2018-04-19)
PROC: F07L6YZ Therapeutic Exercise Treatment of Musculoskeletal System - Lower Back / Lower Extremity using Other Equipment (ICD-10-PCS; 2018-04-20)
PROC: F08Z1FZ Dressing Techniques Treatment using Assistive, Adaptive, Supportive or Protective Equipment (ICD-10-PCS; 2018-04-20)
DX: R26.9 Unspecified abnormalities of gait and mobility (principal); I63.81 Other cerebral infarction due to occlusion or stenosis of small artery; C90.00 Multiple myeloma not having achieved remission; R56.9 Unspecified convulsions; E78.00 Pure hypercholesterolemia, unspecified; F41.9 Anxiety disorder, unspecified; I10 Essential (primary) hypertension; K14.0 Glossitis; K21.9 Gastro-esophageal reflux disease without esophagitis; Z80.3 Family history of malignant neoplasm of breast